=== PATIENT | female | born 1960 | race Caucasian/White ===

== ENCOUNTER 2018-01-02 22:21 | Inpatient (IN) ==
[2018-01-03 02:50] LABS: Baso % (Auto) 0.2 % (0.0-2.0); Eos % (Auto) 0.1 % (0.0-4.0); Hematocrit 32.2 % (35.0-46.0); Hemoglobin 10.5 gm/dL (11.6-15.3); Lymph # (Auto) 2.2 th/mm3 (1.0-4.8); Lymph % (Auto) 14.7 % (9.0-44.0); Mean Corpuscular HGB Conc 32.5 % (32.0-36.0); Mean Corpuscular Hemoglobin 28.3 pg (27.0-34.0); Mono # (Auto) 0.7 th/mm3 (0.0-0.9); Neut # (Auto) 11.8 th/mm3 (1.8-7.7); Platelet Count 243 th/mm3 (150-450); Red Cell Distribution Width 17.5 % (11.6-17.2); White Blood Count 14.8 th/mm3 (4.0-11.0)
[2018-01-03 03:22] LABS: Alanine Aminotransferase 32 U/L (10-53); Alkaline Phosphatase 132 U/L (45-117); Total Protein 6.4 g/dL (6.4-8.2)
[2018-01-03 03:29] LABS: Albumin 2.2 g/dL (3.4-5.0); Anion Gap 12 meq/L (5-15); Aspartate Aminotransferase 41 U/L (15-37); Blood Urea Nitrogen 20 mg/dL (7-18); Calcium 8.7 mg/dL (8.5-10.1); Carbon Dioxide 27.7 meq/L (21.0-32.0); Chloride 97 meq/L (98-107); Glomerular Filtration Rate 63 mL/min (>89); Glucose,Random 60 mg/dL (74-106); Sodium 137 meq/L (136-145)
[2018-01-03 03:31] LABS: Potassium 3.8 meq/L (3.5-5.1)
[2018-01-03] MEDS: KCL 20 mEq/D5W/NaCl 0.9% Inj 1,000 ML IV.CONT SCH ×2 (05:38→16:54)
--- NOTE | 2018-01-03 06:40 | ED ---
HPI General Chief Complaint: Psychiatric Symptoms Stated Complaint: Fire Dept/Eval/Ams Time Seen by Provider: 01/03/18 07:31 Source: EMS and RN notes reviewed Mode of arrival: EMS Limitations: altered mental status History of Present Illness HPI Narrative: 57-year-old female presents to the emergency department by EMS transport from [facility] for evaluation of altered mental status and acute psychosis. Patient has extensive past medical history of diverticulosis with diverticulitis of the large intestine status post perforation and abscess without bleeding status post surgical intervention with wound dehiscence and colostomy sepsis electrolyte disturbance major depressive disorder hypertension GERD recurrent urinary tract infection tobacco use. Per prison records patient is under the care of Dr. Ellington her surgeon Dr. Lentz for her lung disease and Dr. Cabrera for recent management of sepsis. Per prison notes patient was alert and oriented to person place time and events as of 01/01/18 with receiving wet-to-dry dressings at the open wound site approximated by 4 sutures no evidence of infection at the time. And then reportedly just prior to arrival to the emergency department patient was found to be removing her colostomy bag and taking the stool and putting it inside the open wound on her abdominal wall stating that she wanted to and she wanted her mother to live. Patient was transported to the emergency department for further evaluation. Patient here is unable to provide any helpful or useful information as she states that she has every intention of taking her AK 47 and killing everyone in the hospital. Related Data Home Medications Medication Instructions Recorded Confirmed alprazolam 0.25 mg PO Q8H PRN 01/03/18 01/03/18 bisacodyl 5 mg PO DAILY PRN 01/03/18 01/03/18 budesonide 0.5 mg INHALATION Q12H 01/03/18 01/03/18 dextromethorphan-guaifenesin 10 ml PO Q4H PRN 01/03/18 01/03/18 [Rocio-Tussin DM] furosemide 40 mg PO DAILY 01/03/18 01/03/18 ipratropium-albuterol 3 ml INHALATION Q6-8H PRN 01/03/18 01/03/18 pantoprazole 40 mg PO DAILY 01/03/18 01/03/18 potassium chloride [Klor-Con M20] 20 meq PO DAILY 01/03/18 01/03/18 prednisone 20 mg PO DAILY 01/03/18 01/03/18 spironolactone 25 mg PO BID 01/03/18 01/03/18 tramadol 50 mg PO Q4-6H PRN 01/03/18 01/03/18 trazodone 200 mg PO HS 01/03/18 01/03/18 Allergies Allergy/AdvReac Type Severity Reaction Status Date / Time No Known Allergies Allergy Verified 01/03/18 07:51 Review of Systems ROS Unobtainable ROS Unobtainable: unobtainable due to mental condition [facility] Medical History Medical History Anxiety (Acute) Chronic pain (Acute) Colostomy present on admission (Acute) Constipation (Acute) Diverticulitis (Acute) Edema (Acute) GERD (gastroesophageal reflux disease) (Acute) Hypertension (Acute) Hypokalemia (Acute) Major depressive disorder (Acute) Sepsis (Acute) Shortness of breath (Acute) UTI (urinary tract infection) (Acute) Social History Social History Substance History: No History of Abuse Smoking Status: Former smoker Tobacco Type: Cigarettes How Often Do You Have a Drink Containing Alcohol: Never Recent Travel in [place] within the Last 8 Weeks: No Recent Out of Country Travel within the Last 8 Weeks: No Immunization History Tetanus Immunization: <5 Years Hx Influenza Vaccine This Season: Yes Exam Narrative Exam Narrative: GENERAL: Well-nourished, well-developed patient. In four-point restraints randomly stating that she wants to be released so that she can kill everyone in the hospital and that she wants her mother to live because she wants to . Patient is awake follows commands intermittently oriented to person. SKIN: Focused skin assessment warm/dry. HEAD: Normocephalic. EYES: No scleral icterus. No injection or drainage. NECK: Supple, trachea midline. No JVD or lymphadenopathy. CARDIOVASCULAR: Regular rate and rhythm without murmurs, gallops, or rubs. RESPIRATORY: Breath sounds equal bilaterally. No accessory muscle use. GASTROINTESTINAL: Abdomen soft, non-tender, nondistended. Abdominal wall large dehisced wound with [address] and no visible stool or foreign body or packing in place. MUSCULOSKELETAL: No cyanosis, or edema. BACK: Nontender without obvious deformity. No CVA tenderness. Course Initial Documented Vital Signs Temperature 98.2 F 01/03/18 00:19 Pulse Rate 111 H 01/03/18 00:19 Respiratory Rate 16 01/03/18 00:19 Blood Pressure 187/92 H 01/03/18 00:19 Pulse Oximetry 99 01/03/18 00:19 Last Documented Vital Signs Temperature 98.2 F 01/03/18 00:19 Pulse Rate 77 01/03/18 13:30 Respiratory Rate 16 01/03/18 13:30 Blood Pressure 112/70 01/03/18 13:30 Pulse Oximetry 98 01/03/18 13:23 Sign Out Sign Out Data: Patient Sign Out occurred on 01/03/18 at 08:25. Patient's care was discussed, and care was transferred from Mita Kirkpatrick MD to Beck Galvan DO. Sign Out Comment: 57-year-old female sent to the emergency department from prison for acute agitation bizarre behavior and acute psychosis with history of depression threatening to harm herself and others and being found putting stool from her colostomy site into her open abdominal wall wound. Patient placed in restraints and lab work and imaging studies pending. Patient reportedly voluntary psych screen/evaluation. Patient is not a Perez act. Care signed over to oncoming physician for follow-up of still pending imaging studies. Last updated by Mita Kirkpatrick MD at 01/03/18 07:47 Medical Decision Making MDM Narrative Medical decision making narrative: 57 female presents with acute psychosis from prison; IV access obtained specimens collected and sent for resulting including culture of wound site dressing applied to abdominal wall wound. Colostomy in place. Patient in four-point restraints uncooperative at this time At 7:30 AM patient cooperative requesting restraints to be removed patient will be reposition but restraints will be kept in place and patient is reassessed white count is identified to be 14,880% neutrophils hemoglobin of 10.5 mild anemia chemistries remarkable for serum glucose of 60 which was addressed with D50 and D5 normal saline with 20 of K maintenance of 100 cc an hour lactic acid is not elevated at 1.9 urinalysis remains pending acetaminophen level is not elevated salicylate level is not elevated serum alcohol level is less than 3 patient still has not had imaging CT brain noncontrast or CT abdomen pelvis performed. Patient's care will be signed over to oncoming physician for follow-up of CT imaging studies and urinalysis. Patient will need admission to medicine service with psychiatric consultation. Patient also with UTI and a white count of 14.8. Due to the fact that she was applying fecal matter on her open wound we started her on cefepime. Will admit for further evaluation and treatment. Medical Screen Exam Complete: Yes Emergency Medical Condition: Yes Medical Records Medical records reviewed: Yes I reviewed the patient's medical records. Lab Data Result diagrams: 01/03/18 02:20 01/03/18 02:20 Lab Results 01/03/18 01/03/18 01/03/18 Range/Units 02:20 02:20 02:20 WBC 14.8 H (4.0-11.0) th/mm3 RBC 3.70 L (4.00-5.30) mil/mm3 Hgb 10.5 L (11.6-15.3) gm/dL Hct 32.2 L (35.0-46.0) % MCV 87.0 (80.0-100.0) fL MCH 28.3 (27.0-34.0) pg MCHC 32.5 (32.0-36.0) % RDW 17.5 H (11.6-17.2) % Plt Count 243 (150-450) th/mm3 MPV 8.0 (7.0-11.0) fL Prelim Diff (Auto) Slide review pending Neut % (Auto) 80.0 H (16.0-70.0) % Lymph % (Auto) 14.7 (9.0-44.0) % Prentiss % (Auto) 5.0 (0.0-8.0) % Eos % (Auto) 0.1 (0.0-4.0) % Baso % (Auto) 0.2 (0.0-2.0) % Neut # (Auto) 11.8 H (1.8-7.7) th/mm3 Lymph # (Auto) 2.2 (1.0-4.8) th/mm3 Prentiss # (Auto) 0.7 (0.0-0.9) th/mm3 Eos # (Auto) 0.0 (0.0-0.4) th/mm3 Baso # (Auto) 0.0 (0.0-0.2) th/mm3 WBC Differential . Diff Scan Auto diff confirmed Differential Comment . Sodium 137 (136-145) meq/L Potassium 3.8 (3.5-5.1) meq/L Chloride 97 L (98-107) meq/L Carbon Dioxide 27.7 (21.0-32.0) meq/L Anion Gap 12 (5-15) meq/L BUN 20 H (7-18) mg/dL Creatinine 0.92 (0.50-1.00) mg/dL Estimated GFR 63 L (>89) mL/min POC Glucose (68-110) mg/dl Random Glucose 60 L (74-106) mg/dL Lactic Acid (0.4-2.0) mmol/L Calcium 8.7 (8.5-10.1) mg/dL Total Bilirubin 1.3 H (0.2-1.0) mg/dL AST 41 H (15-37) U/L ALT 32 (10-53) U/L Alkaline Phosphatase 132 H (45-117) U/L Total Protein 6.4 (6.4-8.2) g/dL Albumin 2.2 L (3.4-5.0) g/dL TSH 2.560 (0.358-3.740) uIU/mL Urine Color (Yellw/Straw) Urine Clarity (Clear) Urine pH (5.0-8.5) Ur Specific [place] (1.002-1.035) Urine Protein (Neg-Trace) mg/dL Urine Glucose (UA) (Negative) mg/dL Urine Ketones (Negative) mg/dL Urine Occult Blood (Negative) Urine Nitrate (Negative) Urine Bilirubin (Negative) Urine Urobilinogen (Less than 2) mg/dL Ur Leukocyte Esterase (Negative) Urine RBC (0-3) /hpf Urine WBC (0-5) /hpf Ur Squamous Epith Cells (0-5) /hpf Urine Bacteria (None) /hpf Hyaline Casts (0-3) /lpf Urine Mucus (Occasional) /lpf Micro UA Comment Ur Microscopic Review Urine Culture Comments Salicylates Less than 1.7 L (2.8-20.0) mg/dL Urine Opiates Screen (Neg) Acetaminophen Less than 2.0 L (10.0-30.0) mcg/mL Ur Barbiturates Screen (Neg) Ur Amphetamines Screen (Neg) U Benzodiazepines Scrn (Neg) Urine Cocaine Screen (Neg) U Cannabinoids Screen (Neg) Serum Alcohol Less than 3 (0-5) mg/dL 01/03/18 01/03/18 01/03/18 Range/Units 02:20 06:50 06:50 WBC (4.0-11.0) th/mm3 RBC (4.00-5.30) mil/mm3 Hgb (11.6-15.3) gm/dL Hct (35.0-46.0) % MCV (80.0-100.0) fL MCH (27.0-34.0) pg MCHC (32.0-36.0) % RDW (11.6-17.2) % Plt Count (150-450) th/mm3 MPV (7.0-11.0) fL Prelim Diff (Auto) Neut % (Auto) (16.0-70.0) % Lymph % (Auto) (9.0-44.0) % Prentiss % (Auto) (0.0-8.0) % Eos % (Auto) (0.0-4.0) % Baso % (Auto) (0.0-2.0) % Neut # (Auto) (1.8-7.7) th/mm3 Lymph # (Auto) (1.0-4.8) th/mm3 Prentiss # (Auto) (0.0-0.9) th/mm3 Eos # (Auto) (0.0-0.4) th/mm3 Baso # (Auto) (0.0-0.2) th/mm3 WBC Differential Diff Scan Differential Comment Sodium (136-145) meq/L Potassium (3.5-5.1) meq/L Chloride (98-107) meq/L Carbon Dioxide (21.0-32.0) meq/L Anion Gap (5-15) meq/L BUN (7-18) mg/dL Creatinine (0.50-1.00) mg/dL Estimated GFR (>89) mL/min POC Glucose (68-110) mg/dl Random Glucose (74-106) mg/dL Lactic Acid 1.9 (0.4-2.0) mmol/L Calcium (8.5-10.1) mg/dL Total Bilirubin (0.2-1.0) mg/dL AST (15-37) U/L ALT (10-53) U/L Alkaline Phosphatase (45-117) U/L Total Protein (6.4-8.2) g/dL Albumin (3.4-5.0) g/dL TSH (0.358-3.740) uIU/mL Urine Color Lad[place] (Yellw/Straw) Urine Clarity Hazy H (Clear) Urine pH 5.0 (5.0-8.5) Ur Specific [place] 1.021 (1.002-1.035) Urine Protein 100 H (Neg-Trace) mg/dL Urine Glucose (UA) Negative (Negative) mg/dL Urine Ketones 20 (Negative) mg/dL Urine Occult Blood Small H (Negative) Urine Nitrate Negative (Negative) Urine Bilirubin Negative (Negative) Urine Urobilinogen 4 or greater (Less than 2) mg/dL Ur Leukocyte Esterase Negative (Negative) Urine RBC 2 (0-3) /hpf Urine WBC 6 H (0-5) /hpf Ur Squamous Epith Cells 1 (0-5) /hpf Urine Bacteria Many H (None) /hpf Hyaline Casts 3 (0-3) /lpf Urine Mucus Few H (Occasional) /lpf Micro UA Comment Cath-culture ind Ur Microscopic Review Not Reportable Urine Culture Comments Cath-cult indicated Salicylates (2.8-20.0) mg/dL Urine Opiates Screen Neg (Neg) Acetaminophen (10.0-30.0) mcg/mL Ur Barbiturates Screen Neg (Neg) Ur Amphetamines Screen Neg (Neg) U Benzodiazepines Scrn Pos H (Neg) Urine Cocaine Screen Neg (Neg) U Cannabinoids Screen Neg (Neg) Serum Alcohol (0-5) mg/dL 01/03/18 01/03/18 Range/Units 07:38 11:18 WBC (4.0-11.0) th/mm3 RBC (4.00-5.30) mil/mm3 Hgb (11.6-15.3) gm/dL Hct (35.0-46.0) % MCV (80.0-100.0) fL MCH (27.0-34.0) pg MCHC (32.0-36.0) % RDW (11.6-17.2) % Plt Count (150-450) th/mm3 MPV (7.0-11.0) fL Prelim Diff (Auto) Neut % (Auto) (16.0-70.0) % Lymph % (Auto) (9.0-44.0) % Prentiss % (Auto) (0.0-8.0) % Eos % (Auto) (0.0-4.0) % Baso % (Auto) (0.0-2.0) % Neut # (Auto) (1.8-7.7) th/mm3 Lymph # (Auto) (1.0-4.8) th/mm3 Prentiss # (Auto) (0.0-0.9) th/mm3 Eos # (Auto) (0.0-0.4) th/mm3 Baso # (Auto) (0.0-0.2) th/mm3 WBC Differential Diff Scan Differential Comment Sodium (136-145) meq/L Potassium (3.5-5.1) meq/L Chloride (98-107) meq/L Carbon Dioxide (21.0-32.0) meq/L Anion Gap (5-15) meq/L BUN (7-18) mg/dL Creatinine (0.50-1.00) mg/dL Estimated GFR (>89) mL/min POC Glucose 124 H 102 (68-110) mg/dl Random Glucose (74-106) mg/dL Lactic Acid (0.4-2.0) mmol/L Calcium (8.5-10.1) mg/dL Total Bilirubin (0.2-1.0) mg/dL AST (15-37) U/L ALT (10-53) U/L Alkaline Phosphatase (45-117) U/L Total Protein (6.4-8.2) g/dL Albumin (3.4-5.0) g/dL TSH (0.358-3.740) uIU/mL Urine Color (Yellw/Straw) Urine Clarity (Clear) Urine pH (5.0-8.5) Ur Specific [place] (1.002-1.035) Urine Protein (Neg-Trace) mg/dL Urine Glucose (UA) (Negative) mg/dL Urine Ketones (Negative) mg/dL Urine Occult Blood (Negative) Urine Nitrate (Negative) Urine Bilirubin (Negative) Urine Urobilinogen (Less than 2) mg/dL Ur Leukocyte Esterase (Negative) Urine RBC (0-3) /hpf Urine WBC (0-5) /hpf Ur Squamous Epith Cells (0-5) /hpf Urine Bacteria (None) /hpf Hyaline Casts (0-3) /lpf Urine Mucus (Occasional) /lpf Micro UA Comment Ur Microscopic Review Urine Culture Comments Salicylates (2.8-20.0) mg/dL Urine Opiates Screen (Neg) Acetaminophen (10.0-30.0) mcg/mL Ur Barbiturates Screen (Neg) Ur Amphetamines Screen (Neg) U Benzodiazepines Scrn (Neg) Urine Cocaine Screen (Neg) U Cannabinoids Screen (Neg) Serum Alcohol (0-5) mg/dL Imaging Data Radiologist's impression: Chest X-Ray 01/03/18 00:00 CONCLUSION: Left basilar atelectasis. Head CT 01/03/18 05:23 CONCLUSION: 1. Negative CT Head non contrast. . Abdomen/Pelvis CT 01/03/18 05:24 Bilateral breast implants are noted. There is left lower lobe atelectasis with air bronchogram formation. Trace pericardial fluid. Cholelithiasis is noted. There is diffuse biliary ductal dilatation involving intrahepatic, and extrahepatic biliary tree, common pelvic measuring up to 2.1 cm. It tapers as it approaches the ampulla. Kidneys, adrenals, spleen, pancreas unremarkable. Urinary bladder contained a small locule of air. The uterus is unremarkable. Distal colon is decompressed, and there is a left lower quadrant. There are several hypodense masses seen within the upper abdomen including just lateral to the descending portion of the duodenum, anterior to the pancreas. For example on the right upper quadrant on image 29 a 9 x 5 cm collection is present which is contiguous with a left upper quadrant mass measuring 7.1 x 5.4 cm in size. Similar appearing hypodense mass is seen just superior to the appendix in the right mid abdomen on image 42. There is also a crescentic rim- enhancing collection in the left paracolic region with adjacent surgical clips, and this collection contains air and fluid on axial image 36 this measures 6 x 1.8 cm in AP transverse dimension. There are no signs of bowel obstruction. Diffuse atherosclerotic calcification of the aorta and iliac vessels are noted. Review of bone windows demonstrate degenerative changes of the spine. There are post surgical changes to the anterior abdominal wall with subcutaneous air along the left lateral subcutaneous tissues just above the hip, and a small focus of subcutaneous air and fluid measuring 1.9 x 1.7 cm in AP transverse dimension on image 36 at the midline. CONCLUSION: 1. Extensive postsurgical changes are seen to the anterior abdominal wall, and left sided colostomy identified. 2. Cholelithiasis, and dilatation of the biliary tree is noted. 3. Low density mass-like foci are seen throughout the mid to upper abdomen as described above which has an appearance of masses versus focal fluid collections , and the possibility of carcinomatosis should be entertained. 4. There is a crescentic rim-enhancing fluid collection containing air in the left midabdomen paracolic region which would be most characteristic of an abscess. ECG Data EKG Prior to Arrival: No Prior ECG tracings: not available for review Interpretation: EKG sinus rhythm rate [address] elevation nonspecific ST-T changes anterolaterally Discharge Plan Discharge Disposition Patient Disposition: 30 Still Patient Discharge Condition Condition: Stable Discharge Details Diagnosis: Altered mental status, Bipolar disorder, Psychosis, Postoperative abdominal pain, Acute UTI Physicians Team ED Provider: Beck Galvan Primary Care Provider: Primary Care Milo,Lin Attending Provider: Arjun Friend Other Providers: Rom Ingram Discharge Interventions Interventions: Vital Signs Last Done: 01/03/18 11:43 Status ED Status: Admitted Patient
[2018-01-03] MEDS ORDERED: Morphine Inj 4 MG/ML Vial IV.PUSH ONE (08:05)
[2018-01-03 08:08] LABS: Amphetamine Screen,Urine Neg (Neg); Barbiturate Screen,Urine Neg (Neg); Cannabinoid Screen,Urine Neg (Neg); Cocaine Screen,Urine Neg (Neg)
[2018-01-03 08:10] LABS: Opiate Screen,Urine Neg (Neg)
[2018-01-03 08:28] LABS: Bacteria,Urine Many /hpf; Bilirubin,Urine Negative (Negative); Clarity,Urine Hazy (Clear); Color,Urine Amber (Yellw/Straw); Glucose,Urine (UA) Negative (Negative); Hyaline Casts,Urine 3 /lpf (0-3); Leukocyte Esterase,Urine Negative (Negative); Mucus,Urine Few /lpf (Occasional); Nitrite,Urine Negative (Negative); Specific Gravity,Urine 1.021 (1.002-1.035); Squamous Epithelial Cell,Urine 1 /hpf (0-5); Urobilinogen,Urine 4 or Greater mg/dL (Less than 2)
--- NOTE | 2018-01-03 09:39 | CT ---
EXAM DATE: 01/03/2018 9:34 AM EDT AGE/SEX: 57 years / Female INDICATIONS: Altered mental status. CLINICAL DATA: This is the patient's initial encounter. Patient reports that signs and symptoms have been present for 1 day and indicates a pain score of 0/10. MEDICAL/SURGICAL HISTORY: Hypertension. Diverticulitis. Colostomy. RADIATION DOSE: 56.35 CTDI (mGy) COMPARISON: No prior exams available for comparison. TECHNIQUE: CT of the head without contrast. Using automated exposure control and adjustment of the mA and/or kV according to patient size, radiation dose was kept as low as reasonably achievable to ob tain optimal diagnostic quality images. DICOM format image data is available electronically for revi ew and comparison. FINDINGS: Cerebrum: The ventricles are normal for age. No evidence of midline shift, mass lesion, hemorrhage or acute infarction. No extraaxial fluid collections are seen. Posterior Fossa: The cerebellum and brainstem are intact. The 4th ventricle is midline. The cerebe llopontine angle is unremarkable. Extracranial: The visualized portion of the orbits is intact. Skull: The calvaria is intact. No evidence of skull fracture. CONCLUSION: 1. Negative CT Head non contrast. . Electronically signed by: Get Urbina MD 01/03/2018 9:37 AM EDT
--- NOTE | 2018-01-03 09:49 | CT ---
EXAM DATE: 01/03/2018 9:38 AM EDT AGE/SEX: 57 years / Female INDICATIONS: Diffuse abdominal pain. CLINICAL DATA: This is the patient's initial encounter. Patient reports that signs and symptoms have been present for 1 day and indicates a pain score of 5/10. MEDICAL/SURGICAL HISTORY: Hypertension. Diverticulitis. sajan Colostomy. ORAL CONTRAST: No oral contrast ingested. RADIATION DOSE: 10.09 CTDI (mGy) COMPARISON: No prior exams available for comparison. TECHNIQUE: Multiple contiguous axial images were obtained through the abdomen and pelvis following b olus infusion of 100 ml Omnipaque 350 (iohexol) nonionic water-soluble contrast as a single exam do se. No oral contrast ingested. Using automated exposure control and adjustment of the mA and/or kV a ccording to patient size, radiation dose was kept as low as reasonably achievable to obtain optimal d iagnostic quality images. DICOM format image data is available electronically for review and compari son. FINDINGS: Bilateral breast implants are noted. There is left lower lobe atelectasis with air bronchogram format ion. Trace pericardial fluid. Cholelithiasis is noted. There is diffuse biliary ductal dilatation inv olving intrahepatic, and extrahepatic biliary tree, common pelvic measuring up to 2.1 cm. It tapers a s it approaches the ampulla. Kidneys, adrenals, spleen, pancreas unremarkable. Urinary bladder contai lelo a small locule of air. The uterus is unremarkable. Distal colon is decompressed, and there is a l eft lower quadrant. There are several hypodense masses seen within the upper abdomen including just l ateral to the descending portion of the duodenum, anterior to the pancreas. For example on the right upper quadrant on image 29 a 9 x 5 cm collection is present which is contiguous with a left upper priscila drant mass measuring 7.1 x 5.4 cm in size. Similar appearing hypodense mass is seen just superior to the appendix in the right mid abdomen on image 42. There is also a crescentic rim-enhancing collectio n in the left paracolic region with adjacent surgical clips, and this collection contains air and flu id on axial image 36 this measures 6 x 1.8 cm in AP transverse dimension. There are no signs of bowel obstruction. Diffuse atherosclerotic calcification of the aorta and iliac vessels are noted. Review of bone windows demonstrate degenerative changes of the spine. There are post surgical changes to the anterior abdominal wall with subcutaneous air along the left lateral subcutaneous tissues just above the hip, and a small focus of subcutaneous air and fluid measuring 1.9 x 1.7 cm in AP transverse dim ension on image 36 at the midline. CONCLUSION: 1. Extensive postsurgical changes are seen to the anterior abdominal wall, and left sided colostomy identified. 2. Cholelithiasis, and dilatation of the biliary tree is noted. 3. Low density mass-like foci are seen throughout the mid to upper abdomen as described above which has an appearance of masses versus focal fluid collections, and the possibility of carcinomatosis aida uld be entertained. 4. There is a crescentic rim-enhancing fluid collection containing air in the left midabdomen paraco lic region which would be most characteristic of an abscess. Electronically signed by: Get Urbina MD 01/03/2018 9:48 AM EDT
--- NOTE | 2018-01-03 12:35 | P.HPIM ---
History of Present Illness Service: [facility] Primary Care Physician: No Primary Care Physician Chief Complaint: altered mental stats, psychosis, UTI History of Present Illness: Mrs. Camp is a 57 yo F with PMH of recent laparotomy and colostomy placement by Dr. Herndon (due to complications of diverticulitis at within the past month) , recent abdominal infection, anxiety/depression, GERD, HTN who presented to [facility] rehabilitation facility due to altered mental status and psychosis. Per ED documentation, patient was doing well 01/01 but was found today putting stool from ostomy inside wound stating she wanted to . At ED, patient reported desire to use rifle to kill people in hospital. [facility] records reviewed- admitted to [facility] 12/31 from . Had diverticulitis; due to complications had colostomy and laparotomy. Patient had plans for abdominal dressing changes and follow-up with Dr. Herndon in 4 weeks. Patient also had been seeing Dr. Cabrera (ID) and Dr. Hall (Pulmonology) and had f/u appointments planned. Interval: In ED, vital signs stable. Patient found to have WBC 14K, lactic acid 1.9. CT A/P suggestive of multiple masses/fluid and suggestion of abscess. UA suggestive of UTI. Patient also found to have glucose 60 and abnormal LFT's. Abdominal incision irrigated by nursing staff and re-dressed. Decision made to admit patient to medical service and consult psychiatry. At time of interview, patient oriented to year and that she is in the hospital. She does not remember putting stool from ostomy into abdominal wound. She reports history of depression but denies prior suicidal ideation. patient reports doing well at [facility] for ~2 days prior to worsening. She is not sure why she is here. Patient reports diffuse pain all over. She denies chest pain, shortness of breath, extremity numbness/tinging, headaches, vision changes. She has not been able to walk since diverticulitis hospitalization. She reports some lung disease and that she used to smoke 1PPD until last hospitalization. Some records obtained from hospitalization in December: CT 12/07- large diverticular abscess 11.2 x10.6x10.1. Too thick to aspirate. Drain in abscess in position. Common bile duct dilation; unchanged from prior. Could be evaluated by MRCP/ERCP 12/13- Laparoscopic L colectomy performed Was on Rocephin and Flagyl per Dr. Cabrera while hospitalized; also treated for candidemia while hospitalized. Gamboa's procedure performed on enterocutaneous fistula 12/31- stable; drains from abdominal incision removed; patient discharged to rehab - Diagnosis (1) Abdominal abscess (2) Suicidal ideation (3) Altered mental status (4) Psychosis (5) Acute UTI Review of Systems All other systems reviewed negative except as stated in HPI Constitutional: Reports malaise, Denies increased appetite Eyes: Denies change in vision, Denies loss of vision Ears, Nose, Mouth, and Throat: Denies headache(s), Denies nasal discharge Cardiovascular: Denies chest pain, Denies shortness of breath with activity Respiratory: Denies change in phlegm color, Denies cough Gastrointestinal: Reports abdominal pain, Denies vomiting Genitourinary: Reports other (catheter while at rehab), Denies painful urination , Denies urinary urgency Musculoskeletal: Reports abnormal walking, Reports back pain Skin/Breast: Reports other (abdominal incisions), Denies rash Neurologic: Reports confusion, Reports other (altered mental status) Psychiatric: Reports anxiety, Reports confusion, Reports depression Hematologic/Lymphatic: Denies easy bleeding, Denies easy bruising Allergic/Immunologic: Denies GI upset with certain foods, Denies wheezing PMFSH - History History Provided By: Patient - Medical History Medical History: Medical History (Last Updated 01/03/18 @ 15:36 by Arjun Friend MD) Abdominal abscess Anxiety Chronic pain Colostomy in place Colostomy present on admission Constipation Diverticulitis Edema GERD (gastroesophageal reflux disease) Hypertension Hypokalemia Major depressive disorder Sepsis Shortness of breath UTI (urinary tract infection) - Surgical History Surgical History: Surgical History (Last Updated 01/03/18 @ 15:36 by Arjun Friend MD) History of laparotomy - Tobacco History Tobacco Use In Past 30 Days: No Smoking Status: Former smoker Tobacco Type: Cigarettes - Alcohol History How Often Do You Have a Drink Containing Alcohol: Never - Substance Use History Substance History: No History of Abuse - Travel History Recent Travel in the [facility] Within the Last 8 Weeks: No Recent Travel Out of the Country Within the Last 8 Weeks: No - Immunization History Tetanus Immunization: <5 Years Hx Influenza Vaccine This Season: Yes Medications and Allergies Active Medications: Active Medications Potassium Chloride/Dextrose/Sod Cl (D5w/Ns + Kcl 20 Meq Inj) 1,000 mls @ 100 mls/hr IV.CONT .Q10H CAITLIN Last Admin: 01/03/18 05:38 Dose: 100 mls/hr Allergies Allergy/AdvReac Type Severity Reaction Status Date / Time No Known Allergies Allergy Verified 01/03/18 07:51 Home Medications Medication Instructions Recorded Confirmed Type alprazolam 0.25 mg PO Q8H PRN 01/03/18 01/03/18 History bisacodyl 5 mg PO DAILY PRN 01/03/18 01/03/18 History budesonide 0.5 mg INHALATION Q12H 01/03/18 01/03/18 History dextromethorphan-guaifenesin 10 ml PO Q4H PRN 01/03/18 01/03/18 History [Alex DM] furosemide 40 mg PO DAILY 01/03/18 01/03/18 History ipratropium-albuterol 3 ml INHALATION Q6-8H PRN 01/03/18 01/03/18 History pantoprazole 40 mg PO DAILY 01/03/18 01/03/18 History potassium chloride [Klor-Con M20] 20 meq PO DAILY 01/03/18 01/03/18 History prednisone 20 mg PO DAILY 01/03/18 01/03/18 History spironolactone 25 mg PO BID 01/03/18 01/03/18 History tramadol 50 mg PO Q4-6H PRN 01/03/18 01/03/18 History trazodone 200 mg PO HS 01/03/18 01/03/18 History Exam Vital signs: Vital Signs 01/03/18 00:19 01/03/18 02:29 01/03/18 07:00 Temperature 98.2 F Pulse Rate 111 H 113 H 94 H Respiratory Rate 16 21 20 Blood Pressure 187/92 H 128/72 109/70 Pulse Oximetry 99 97 97 01/03/18 08:00 01/03/18 08:28 01/03/18 10:47 Temperature Pulse Rate 90 85 Respiratory Rate 18 18 16 Blood Pressure 109/67 106/56 L Pulse Oximetry 98 98 01/03/18 11:43 Temperature Pulse Rate 83 Respiratory Rate 18 Blood Pressure 109/64 Pulse Oximetry 98 Intake & Output 09/02/18 09/03/18 09/03/18 18:59 06:59 18:59 Weight 92.986 kg Narrative: General: Resting in bed; no acute distress Skin: Colostomy bag in place. Midline laparotomy incision present; healing by secondary intention. Eyes: EOM I. normal pupillary light reflex Neck: No appreciated JVD or lymphadenopathy Neuro/psych: Altert to year, location. No focal CN defects. Grossly normal peripheral motor/sensory function. Generalized pain to light palpation of extremities; patient with some frustration regarding pain. CV: regular rate and rhythm; normal perfusion Pulm: CTAB; normal rate Abd: Skin findings as above. No pain to palpation MSK: No calf asymmetry. some mild bilateral LE edema Results - Labs CBC & Chem 7: 01/03/18 02:20 01/03/18 02:20 Labs: Short CBC 01/03/18 Range/Units 02:20 WBC 14.8 H (4.0-11.0) th/mm3 Hgb 10.5 L (11.6-15.3) gm/dL Hct 32.2 L (35.0-46.0) % Plt Count 243 (150-450) th/mm3 BMP 01/03/18 02:20 Sodium 137 Potassium 3.8 Chloride 97 L Carbon Dioxide 27.7 BUN 20 H Creatinine 0.92 Calcium 8.7 Liver Function 01/03/18 Range/Units 02:20 Total Bilirubin 1.3 H (0.2-1.0) mg/dL AST 41 H (15-37) U/L ALT 32 (10-53) U/L Alkaline Phosphatase 132 H (45-117) U/L Albumin 2.2 L (3.4-5.0) g/dL Urine 01/03/18 Range/Units 06:50 Urine Color Ladan (Yellw/Straw) Urine Clarity Hazy H (Clear) Urine pH 5.0 (5.0-8.5) Ur Specific [place] 1.021 (1.002-1.035) Urine Protein 100 H (Neg-Trace) mg/dL Urine Glucose (UA) Negative (Negative) mg/dL - Imaging Impressions Head CT 01/03/18 05:23 CONCLUSION: 1. Negative CT Head non contrast. . Abdomen/Pelvis CT 01/03/18 05:24 Bilateral breast implants are noted. There is left lower lobe atelectasis with air bronchogram formation. Trace pericardial fluid. Cholelithiasis is noted. There is diffuse biliary ductal dilatation involving intrahepatic, and extrahepatic biliary tree, common pelvic measuring up to 2.1 cm. It tapers as it approaches the ampulla. Kidneys, adrenals, spleen, pancreas unremarkable. Urinary bladder contained a small locule of air. The uterus is unremarkable. Distal colon is decompressed, and there is a left lower quadrant. There are several hypodense masses seen within the upper abdomen including just lateral to the descending portion of the duodenum, anterior to the pancreas. For example on the right upper quadrant on image 29 a 9 x 5 cm collection is present which is contiguous with a left upper quadrant mass measuring 7.1 x 5.4 cm in size. Similar appearing hypodense mass is seen just superior to the appendix in the right mid abdomen on image 42. There is also a crescentic rim- enhancing collection in the left paracolic region with adjacent surgical clips, and this collection contains air and fluid on axial image 36 this measures 6 x 1.8 cm in AP transverse dimension. There are no signs of bowel obstruction. Diffuse atherosclerotic calcification of the aorta and iliac vessels are noted. Review of bone windows demonstrate degenerative changes of the spine. There are post surgical changes to the anterior abdominal wall with subcutaneous air along the left lateral subcutaneous tissues just above the hip, and a small focus of subcutaneous air and fluid measuring 1.9 x 1.7 cm in AP transverse dimension on image 36 at the midline. CONCLUSION: 1. Extensive postsurgical changes are seen to the anterior abdominal wall, and left sided colostomy identified. 2. Cholelithiasis, and dilatation of the biliary tree is noted. 3. Low density mass-like foci are seen throughout the mid to upper abdomen as described above which has an appearance of masses versus focal fluid collections , and the possibility of carcinomatosis should be entertained. 4. There is a crescentic rim-enhancing fluid collection containing air in the left midabdomen paracolic region which would be most characteristic of an abscess. Caprini VTE Risk Assessment Caprini VTE Risk Assessment: Moderate/High Risk (score >= 2) Caprini Risk Assessment Model: Point Value = 1 Point Value = 2 Point Value = 3 Point Value = 5 Age 41-60 Minor surgery BMI > 25 kg/m2 Swollen legs Varicose veins or History of unexplained or recurrent spontaneous Oral contraceptives or hormone replacement Sepsis (< 1 month) Serious lung disease, including pneumonia (< 1 month) Abnormal pulmonary function Acute myocardial infarction Congestive heart failure (< 1 month) History of inflammatory bowel disease Medical patient at bed rest Age 61-74 Arthroscopic surgery Major open surgery (> 45 min) Laparoscopic surgery (> 45 min) Malignancy Confined to bed (> 72 hours) Immobilizing plaster cast Central venous access Age >= 75 History of VTE Family history of VTE Factor V Leiden Prothrombin [id number] Lupus anticoagulant Anticardiolipin antibodies Elevated serum homocysteine Heparin-induced thrombocytopenia Other congenital or acquired thrombophilia Stroke (< 1 month) Elective arthroplasty Hip, pelvis, or leg fracture Acute spinal cord injury (< 1 month) Prophylaxis Regimen: Total Risk Factor Score Risk Level Prophylaxis Regimen 0-1 Low Early ambulation 2 Moderate Order ONE of the following: *Sequential Compression Device (SCD) *Heparin 5000 units SQ BID 3-4 Higher Order ONE of the following medications: *Heparin 5000 units SQ TID *Enoxaparin/Lovenox 40 mg SQ daily (WT < 150 kg, CrCl > 30 mL/min) *Enoxaparin/Lovenox 30 mg SQ daily (WT < 150 kg, CrCl > 10-29 mL/min) *Enoxaparin/Lovenox 30 mg SQ BID (WT < 150 kg, CrCl > 30 mL/min) AND/OR *Sequential Compression Device (SCD) 5 or more Highest Order ONE of the following medications: *Heparin 5000 units SQ TID (Preferred with Epidurals) *Enoxaparin/Lovenox 40 mg SQ daily (WT < 150 kg, CrCl > 30 mL/min) *Enoxaparin/Lovenox 30 mg SQ daily (WT < 150 kg, CrCl > 10-29 mL/min) *Enoxaparin/Lovenox 30 mg SQ BID (WT < 150 kg, CrCl > 30 mL/min) AND *Sequential Compression Device (SCD) Assessment and Plan - Assessment (1) Abdominal abscess Status: Acute (2) Suicidal ideation Code(s): R45.851 - Suicidal ideations Status: Acute (3) Altered mental status Code(s): R41.82 - Altered mental status, unspecified Status: Acute (4) Psychosis Code(s): F29 - Unspecified psychosis not due to a substance or known physiological condition Status: Acute (5) Acute UTI Code(s): N39.0 - Urinary tract infection, site not specified Status: Acute - Plan Mrs. Camp is a 57 yo F with PMH of recent laparotomy and colostomy placement by Dr. Herndon (due to complications of diverticulitis at within the past month) , recent abdominal infection, anxiety/depression, GERD, HTN who presented to [facility] due to altered mental status and psychosis. Altered mental status/psychosis Impression: Likely related to delirium from possible infectious source and/or worsening psychiatric disease. Suicidal/homicidal ideation today Labs: Normal electrolytes with exception of mild LFT elevations -Psych consulted -Will evaluate/treat for UTI/intrabdominal infectious process as below as delirium very likely -Will continue home antidepressant, benzodiazepine Intrabdominal pathology Impression: Per partial patient/[facility]/ records, patient seemed to have diverticulitis resulting in abscess formation. This was treated with IR drainage without success. Due to enlargement/lack of ability to aspirate, abdominal surgical procedure performed. Unclear if further complications; 12/[address] Herndon performed. Patient given prolonged IV ABX with Rocephin and Flagyl. No organisms in records I received but ID consulted. Biliary dilatation also mentioned records. Patient discharged home 12/31 in stable condition to rehab and planned f/u with Dr. Herndon Subsequent feces in abdomen while altered mental status/psychosis today CT A/P on admission suggestive of multiple masses/fluid and suggestion of abscess -Will empirically give antibiotics to cover for intra-abdominal process -Continue Cefepime from ED -Continue Flagyl -Wound care consulted -IR consulted for evaluation of persistent abscess -Will consult ID for re-evaluation of potential complicated intrabdominal infection -Will consult GI for biliary dilatation with mild LFT abnormalities -Since stable clinically, will defer surgical consultation but will have low threshold to consult SIRS criteria with intraabdominal pathology and suggestion of UTI Impression: Recent diverticulitis w/ abscess s/p prolonged Ceftriaxone/Flagyl. Subsequent Garibay catheter at rehab Tachycardic on admission with WBC 14k. UA with many bacteria, mild WBC -Blood and urine cultures pending -Empiric Cefepime/Metronidazole Respiratory Impression: patient of Dr. Hall. Stable currently -Continue home Prednisone 20mg orally since unknown duration -PRN Duonebs GERD -Continue Pantoprazole LE edema -Continue home Spironolactone 25mg BID -Continue home Lasix DVT PPX -Bilateral SCD's Code Status: Full code (3) Altered mental status Qualifiers: Altered mental status type: unspecified Qualified Code(s): R41.82 - Altered mental status, unspecified (4) Psychosis Qualifiers: Psychosis type: unspecified psychosis type Qualified Code(s): F29 - Unspecified psychosis not due to a substance or known physiological condition
[2018-01-03] MEDS ORDERED: Acetaminophen 325 MG Tablet PO PRN (12:58)
--- NOTE | 2018-01-03 13:46 | ECG ---
Date Performed: 01/03/2018 Time Performed: 07:18:19 PTAGE: 57 years EKG: Sinus rhythm POSSIBLE LEFT ATRIAL ENLARGEMENT MODERATE T-WAVE ABNORMALITY, CONSIDER LATERAL ISCHEMIA MODERATE T-W AVE ABNORMALITY, CONSIDER INFERIOR ISCHEMIA ABNORMAL ECG Clinical correlation will be important as th ere is no previous for comparison. NO PREVIOUS TRACING DOCTOR: Kerri Mancuso Interpretating Date/Time 01/03/2018 13:45:05
--- NOTE | 2018-01-03 13:50 | XR ---
EXAM DATE: 01/03/2018 1:37 PM EDT AGE/SEX: 57 years / Female INDICATIONS: Short of breath. CLINICAL DATA: This is the patient's initial encounter. Patient reports that signs and symptoms have been present for 1 day and indicates a pain score of 0/10. MEDICAL/SURGICAL HISTORY: Hypertension. . Diverticulitis. Colostomy. COMPARISON: No prior exams available for comparison. FINDINGS: A single AP view of the chest demonstrates the lungs to be symmetrically aerated without evidence of mass, infiltrate or effusion. The cardiomediastinal contours are unremarkable. Osseous structures a re intact. There is linear atelectasis at the left base. CONCLUSION: Left basilar atelectasis. Electronically signed by: Get Urbina MD 01/03/2018 1:49 PM EDT
[2018-01-03] MEDS: Dextrose 5%/NaCl 0.45% Inj 1,000 ML IV.CONT SCH (16:55)
[2018-01-03] MEDS: ALPRAZolam 0.25 MG Tablet PO PRN (17:17)
[2018-01-03] MEDS: Spironolactone 25 MG Tablet PO SCH (21:27)
[2018-01-03] MEDS: traZODone 100 MG Tablet PO SCH (21:27)
[2018-01-03] MEDS: Senna/Docusate Sodium 8.6/50 MG Tablet PO SCH (21:32)
[2018-01-04] MEDS: Dextrose 5%/NaCl 0.45% Inj 1,000 ML IV.CONT SCH ×3 (00:45→20:25)
[2018-01-04] MEDS: ALPRAZolam 0.25 MG Tablet PO PRN ×3 (02:55→19:19)
[2018-01-04] MEDS: KCL 20 mEq/D5W/NaCl 0.9% Inj 1,000 ML IV.CONT SCH (04:16)
[2018-01-04 05:42] LABS: Baso % (Auto) 0.2 % (0.0-2.0); Eos % (Auto) 0.4 % (0.0-4.0); Hematocrit 26.1 % (35.0-46.0); Hemoglobin 8.7 gm/dL (11.6-15.3); Lymph # (Auto) 1.2 th/mm3 (1.0-4.8); Lymph % (Auto) 11.6 % (9.0-44.0); Mean Corpuscular HGB Conc 33.5 % (32.0-36.0); Mean Corpuscular Hemoglobin 28.9 pg (27.0-34.0); Mean Corpuscular Volume 86.3 fL (80.0-100.0); Mean Platelet Volume 7.7 fL (7.0-11.0); Mono # (Auto) 0.5 th/mm3 (0.0-0.9); Mono % (Auto) 4.9 % (0.0-8.0); Neut # (Auto) 8.8 th/mm3 (1.8-7.7); Neut % (Auto) 82.9 % (16.0-70.0); Platelet Count 181 th/mm3 (150-450); Red Blood Count 3.02 mil/mm3 (4.00-5.30); Red Cell Distribution Width 17.8 % (11.6-17.2); White Blood Count 10.6 th/mm3 (4.0-11.0)
[2018-01-04 06:20] LABS: Alanine Aminotransferase 26 U/L (10-53); Albumin 1.7 g/dL (3.4-5.0); Alkaline Phosphatase 107 U/L (45-117); Anion Gap 10 meq/L (5-15); Aspartate Aminotransferase 24 U/L (15-37); Blood Urea Nitrogen 15 mg/dL (7-18); Calcium 7.9 mg/dL (8.5-10.1); Carbon Dioxide 25.9 meq/L (21.0-32.0); Chloride 106 meq/L (98-107); Glomerular Filtration Rate Greater Than 89 mL/min (>89); Glucose,Random 86 mg/dL (74-106); Potassium 3.6 meq/L (3.5-5.1); Sodium 142 meq/L (136-145); Total Protein 5.1 g/dL (6.4-8.2)
[2018-01-04 07:17] LABS: Platelet Estimate Normal (Normal); Platelet Morphology Normal (Normal)
[2018-01-04] MEDS: predniSONE 20 MG Tablet PO SCH (09:21)
[2018-01-04] MEDS: Senna/Docusate Sodium 8.6/50 MG Tablet PO SCH ×2 (09:21→20:22)
[2018-01-04] MEDS: Furosemide 40 MG Tablet PO SCH (09:22)
[2018-01-04] MEDS: Spironolactone 25 MG Tablet PO SCH ×2 (09:22→20:22)
--- NOTE | 2018-01-04 11:19 | P.CONGI ---
History of Present Illness Consult date: 01/04/18 Consult reason: Diffuse abdominal pain Chief complaint: UTI, TOXIX METABOLIC ENCEPHALOPATHY History of Present Illness: This is a 57-year-old overweight female who came into the hospital on 01/03/2018 with diffuse uncontrolled abdominal pain, pain scale 10 out of 10 which has waxed and waned over the past month but has worsened over the past week. Patient continues to be uncontrolled with her pain and is a poor historian possibly secondary to pain as well as some acute psychosis according to the record. According to the record patient had diverticulitis due to complications had colostomy and laparotomy with Dr. SALAZAR, at the [facility] in [place]. Patient has open abdominal wound as well as colostomy but no obvious bleeding noted. Initially patient had elevated bilirubin at 1.3 but is now normalized at 0.7. Patient also had AST of 41 ALT of 32 which is now normalized to AST 24 ALT 26. Patient has had a drop in her hemoglobin from admission 10.5 now 8.7 and a 24 hour. Patient states she has not been able to eat due to nausea and decreased appetite but has had no obvious vomiting. CT scan did show cholelithiasis and dilated biliary tree but also noted was multiple abscesses but no obstruction noted. Gastroenterology has been consulted to assist with patient's current symptoms and plan of care. Initially ordered on admission was ordered to assist in evaluation of abdominal abscesses. Patient was transitioned here from [facility] for her uncontrolled abdominal pain and further medical care. Unknown GI history for EGD colonoscopy or family history of colon cancer due to patient's anxiety/possible acute psychosis. <Zoraida Romo - Last Filed: 01/04/18 11:33> Review of Systems All other systems reviewed negative except as stated in HPI <Zoraida Romo - Last Filed: 01/04/18 11:33> PMFSH - History History Provided By: Patient - Medical History Medical History: Medical History (Last Reviewed 01/04/18 @ 08:46 by Pam Carver) Abdominal abscess Anxiety Chronic pain Colostomy in place Colostomy present on admission Constipation Diverticulitis Edema GERD (gastroesophageal reflux disease) Hypertension Hypokalemia Major depressive disorder Sepsis Shortness of breath UTI (urinary tract infection) - Surgical History Surgical History: Surgical History (Last Reviewed 01/04/18 @ 08:46 by Pam Carver) History of laparotomy - Tobacco History Tobacco Use In Past 30 Days: No Smoking Status: Former smoker Tobacco Type: Cigarettes - Alcohol History How Often Do You Have a Drink Containing Alcohol: Never - Substance Use History Substance History: No History of Abuse - Travel History Recent Travel in the [place] Within the Last 8 Weeks: No Recent Travel Out of the Country Within the Last 8 Weeks: No - Immunization History Tetanus Immunization: <5 Years Hx Influenza Vaccine This Season: Yes <Zoraida Romo - Last Filed: 01/04/18 11:33> - Medical History Medical History: Medical History (Last Reviewed 01/04/18 @ 08:46 by Pam Carver) Abdominal abscess Anxiety Chronic pain Colostomy in place Colostomy present on admission Constipation Diverticulitis Edema GERD (gastroesophageal reflux disease) Hypertension Hypokalemia Major depressive disorder Sepsis Shortness of breath UTI (urinary tract infection) - Surgical History Surgical History: Surgical History (Last Reviewed 01/04/18 @ 08:46 by Pam Carver) History of laparotomy <Fátima Wright - Last Filed: 01/04/18 16:03> Medications and Allergies Active Medications: Active Medications Acetaminophen (Tylenol) 650 mg PO Q4H PRN PRN Reason: Temp > 100.4 Albuterol (Duoneb Neb (Prn)) 1 ampul NEB Q6HR NEB PRN PRN Reason: Shortness Of Breath Or Wheezin Alprazolam (Xanax) 0.25 mg PO Q8H PRN PRN Reason: ANXIETY Last Admin: 01/04/18 02:55 Dose: 0.25 mg Bisacodyl (Dulcolax Ec) 5 mg PO DAILY PRN PRN Reason: Constipation Budesonide (Pulmocort Respule Neb) 0.5 mg NEB Q12HR NEB CAITILN Last Admin: 01/04/18 07:49 Dose: 0.5 mg Furosemide (Lasix) 40 mg PO DAILY CAITLIN Last Admin: 01/04/18 09:22 Dose: 40 mg Potassium Chloride/Dextrose/Sod Cl (D5w/Ns + Kcl 20 Meq Inj) 1,000 mls @ 100 mls/hr IV.CONT .Q10H [facility]LIN Last Admin: 01/04/18 04:16 Dose: Not Given Cefepime HCl 2,000 mg/ Sodium (Chloride) 100 mls @ 200 mls/hr IV.SIG Q12H [facility] Last Infusion: 01/03/18 22:45 Dose: Infused Dextrose/Sodium Chloride (D5w/1/2 Ns Inj) 1,000 mls @ 100 mls/hr IV.CONT .Q10H [facility] Last Admin: 01/04/18 00:45 Dose: Not Given Metronidazole/Sodium Chloride (Flagyl 500 Mg Inj) 100 mls @ 100 mls/hr IV.SIG Q8H [facility] Last Admin: 01/04/18 09:21 Dose: 100 mls/hr Ondansetron HCl (Zofran Inj) 4 mg IV.PUSH Q6H PRN PRN Reason: NAUSEA OR VOMITING Pantoprazole Sodium (Protonix) 40 mg PO DAILY [facility] Last Admin: 01/04/18 09:21 Dose: 40 mg Potassium Chloride (K-Dur) 20 meq PO DAILY [facility] Last Admin: 01/04/18 09:21 Dose: 20 meq Prednisone (Deltasone) 20 mg PO DAILY [facility] Last Admin: 01/04/18 09:21 Dose: 20 mg Senna/Docusate Sodium (Cristy-Colace) 1 tab PO BID [facility] Last Admin: 01/04/18 09:21 Dose: 1 tab Spironolactone (Aldactone) 25 mg PO BID [facility] Last Admin: 01/04/18 09:22 Dose: 25 mg Tramadol HCl (Ultram) 50 mg PO Q4H PRN PRN Reason: PAIN SCALE 1 TO 10 Last Admin: 01/04/18 06:40 Dose: 50 mg Trazodone HCl (Desyrel) 200 mg PO HS [facility] Last Admin: 01/03/18 21:27 Dose: 200 mg <Zoraida Romo - Last Filed: 01/04/18 11:33> Active Medications: Active Medications Acetaminophen (Tylenol) 650 mg PO Q4H PRN PRN Reason: Temp > 100.4 Albuterol (Duoneb Neb (Prn)) 1 ampul NEB Q6HR NEB PRN PRN Reason: Shortness Of Breath Or Wheezin Alprazolam (Xanax) 0.25 mg PO Q8H PRN PRN Reason: ANXIETY Last Admin: 01/04/18 11:09 Dose: 0.25 mg Bisacodyl (Dulcolax Ec) 5 mg PO DAILY PRN PRN Reason: Constipation Budesonide (Pulmocort Respule Neb) 0.5 mg NEB Q12HR NEB [facility] Last Admin: 01/04/18 07:49 Dose: 0.5 mg Furosemide (Lasix) 40 mg PO DAILY [facility] Last Admin: 01/04/18 09:22 Dose: 40 mg Cefepime HCl 2,000 mg/ Sodium (Chloride) 100 mls @ 200 mls/hr IV.SIG Q12H [facility] Last Admin: 01/04/18 11:09 Dose: 200 mls/hr Dextrose/Sodium Chloride (D5w/1/2 Ns Inj) 1,000 mls @ 100 mls/hr IV.CONT .Q10H [facility] Last Admin: 01/04/18 13:25 Dose: 100 mls/hr Metronidazole/Sodium Chloride (Flagyl 500 Mg Inj) 100 mls @ 100 mls/hr IV.SIG Q8H [facility] Last Infusion: 01/04/18 11:11 Dose: Infused Piperacillin/Tazobactam/Dextrose (Zosyn 3.375 Gm Premix) 50 mls @ 100 mls/hr IV.SIG Q6H [facility] Morphine Sulfate (Morphine Inj) 4 mg IV.PUSH Q4H PRN PRN Reason: Pain 7 to 10 Last Admin: 01/04/18 11:49 Dose: 4 mg Morphine Sulfate (Morphine Inj) 2 mg IV.PUSH Q4H PRN PRN Reason: Pain 3 to 6 Ondansetron HCl (Zofran Inj) 4 mg IV.PUSH Q6H PRN PRN Reason: NAUSEA OR VOMITING Pantoprazole Sodium (Protonix) 40 mg PO DAILY [facility] Last Admin: 01/04/18 09:21 Dose: 40 mg Potassium Chloride (K-Dur) 20 meq PO DAILY [facility] Last Admin: 01/04/18 09:21 Dose: 20 meq Prednisone (Deltasone) 20 mg PO DAILY [facility] Last Admin: 01/04/18 09:21 Dose: 20 mg Senna/Docusate Sodium (Cristy-Colace) 1 tab PO BID [facility] Last Admin: 01/04/18 09:21 Dose: 1 tab Spironolactone (Aldactone) 25 mg PO BID [facility] Last Admin: 01/04/18 09:22 Dose: 25 mg Trazodone HCl (Desyrel) [address] [facility] Last Admin: 01/03/18 21:27 Dose: 200 mg <Fátima Wright - Last Filed: 01/04/18 16:03> Allergies Allergy/AdvReac Type Severity Reaction Status Date / Time No Known Allergies Allergy Verified 01/03/18 07:51 Home Medications Medication Instructions Recorded Confirmed Type alprazolam 0.25 mg PO Q8H PRN 01/03/18 01/03/18 History bisacodyl 5 mg PO DAILY PRN 01/03/18 01/03/18 History budesonide 0.5 mg INHALATION Q12H 01/03/18 01/03/18 History dextromethorphan-guaifenesin 10 ml PO Q4H PRN 01/03/18 01/03/18 History [Alex DM] furosemide 40 mg PO DAILY 01/03/18 01/03/18 History ipratropium-albuterol 3 ml INHALATION Q6-8H PRN 01/03/18 01/03/18 History pantoprazole 40 mg PO DAILY 01/03/18 01/03/18 History potassium chloride [Klor-Con M20] 20 meq PO DAILY 01/03/18 01/03/18 History prednisone 20 mg PO DAILY 01/03/18 01/03/18 History spironolactone 25 mg PO BID 01/03/18 01/03/18 History tramadol 50 mg PO Q4-6H PRN 01/03/18 01/03/18 History trazodone 200 mg PO HS 01/03/18 01/03/18 History Exam Vital signs: Vital Signs 01/03/18 11:43 01/03/18 13:23 01/03/18 13:30 Temperature Pulse Rate 83 77 Respiratory Rate 18 16 Blood Pressure 109/64 112/70 Pulse Oximetry 98 98 01/03/18 16:00 01/03/18 20:00 01/03/18 21:55 Temperature 98.4 F 98.0 F Pulse Rate 89 93 H 90 Respiratory Rate 17 16 14 Blood Pressure 109/66 120/68 Pulse Oximetry 95 99 94 L 01/04/18 00:00 01/04/18 04:00 01/04/18 07:49 Temperature 98.4 F 98.5 F Pulse Rate 94 H 92 H 84 Respiratory Rate 17 16 14 Blood Pressure 117/50 L 110/57 L Pulse Oximetry 94 L 93 L 95 01/04/18 08:00 Temperature 97.4 F L Pulse Rate 87 Respiratory Rate 18 Blood Pressure 103/63 Pulse Oximetry 95 Intake & Output 01/03/18 01/04/18 01/04/18 18:59 06:59 18:59 Intake Total 1460 / 1460 2300 / 2300 Balance 1460 / 1460 2300 / 2300 Weight 93.4 kg Intake: IV 1100 / 1100 1300 / 1300 D5W/NS + KCL 20 mEq Inj 1,000 1000 / 1000 1000 / 1000 ML @ 100 mls/hr IV.CONT .Q10H [facility] Rx#:[id number] Maxipime Inj 1,000 MG In NS Inj 100 / 100 100 ML @ 200 mls/hr IV.SIG ONCE ONE Rx#:[id number] Maxipime Inj 2,000 MG In NS Inj 100 / 100 100 ML @ 200 mls/hr IV.SIG Q12H [facility] Rx#:[id number] Flagyl 500 MG Inj 100 ML @ 100 200 / 200 mls/hr IV.SIG Q8H [facility] Rx#: [id number] Oral 360 / 360 1000 / 1000 Other: # Voids 1 2 - Constitutional moderate distress, obese, chronically ill appearing, disheveled - Routine HEENT Exam Head: Present: normocephalic ENT: Present: mucous membranes dry - Routine Abdominal Exam Present: distended (Mild), guarding, wound (Open mid abdominal wound), ostomy ( New colostomy within the past month) <Zoraida Romo - Last Filed: 01/04/18 11:33> Vital signs: Vital Signs 01/03/18 20:00 01/03/18 21:55 01/04/18 00:00 Temperature 98.0 F 98.4 F Pulse Rate 93 H 90 94 H Respiratory Rate 16 14 17 Blood Pressure 120/68 117/50 L Pulse Oximetry 99 94 L 94 L 01/04/18 04:00 01/04/18 07:49 01/04/18 08:00 Temperature 98.5 F 97.4 F L Pulse Rate 92 H 84 87 Respiratory Rate 16 14 18 Blood Pressure 110/57 L 103/63 Pulse Oximetry 93 L 95 95 01/04/18 11:50 01/04/18 12:00 Temperature 97.4 F L Pulse Rate 91 H 91 H Respiratory Rate 16 18 Blood Pressure 118/66 118/66 Pulse Oximetry 97 Intake & Output 01/03/18 01/04/18 01/04/18 18:59 06:59 18:59 Intake Total 1460 / 1460 2300 / 2300 100 / 100 Balance 1460 / 1460 2300 / 2300 100 / 100 Weight 93.4 kg Intake: IV 1100 / 1100 1300 / 1300 100 / 100 D5W/NS + KCL 20 mEq Inj 1,000 1000 / 1000 1000 / 1000 ML @ 100 mls/hr IV.CONT .Q10H [facility] Rx#:[id number] Maxipime Inj 1,000 MG In NS Inj 100 / 100 100 ML @ 200 mls/hr IV.SIG ONCE ONE Rx#:[id number] Maxipime Inj 2,000 MG In NS Inj 100 / 100 100 ML @ 200 mls/hr IV.SIG Q12H [facility] Rx#:[id number] Flagyl 500 MG Inj 100 ML @ 100 200 / 200 100 / 100 mls/hr IV.SIG Q8H [facility] Rx#: [id number] Oral 360 / 360 1000 / 1000 Other: # Voids 1 2 Date of Last Bowel Movement 01/03/18 <Fátima Wright A - Last Filed: 01/04/18 16:03> Results - Labs CBC & Chem 7: 01/04/18 04:53 01/04/18 04:53 Labs: Laboratory Results - last 24 hr 01/03/18 01/03/18 01/04/18 11:18 14:15 04:53 WBC 10.6 RBC 3.02 L Hgb 8.7 L Hct 26.1 L MCV 86.3 MCH 28.9 MCHC 33.5 RDW 17.8 H Plt Count 181 MPV 7.7 Prelim Diff (Auto) Slide review pending Neut % (Auto) 82.9 H Lymph % (Auto) 11.6 Addison % (Auto) 4.9 Eos % (Auto) 0.4 Baso % (Auto) 0.2 Neut # (Auto) 8.8 H Lymph # (Auto) 1.2 Addison # (Auto) 0.5 Eos # (Auto) 0.0 Baso # (Auto) 0.0 WBC Differential . Diff Scan Auto diff confirmed Differential Comment . Platelet Estimate Normal Platelet Morphology Normal Sodium Potassium Chloride Carbon Dioxide Anion Gap BUN Creatinine Estimated GFR POC Glucose 102 Random Glucose Calcium Total Bilirubin AST ALT Alkaline Phosphatase Troponin I Less than 0.02 L Total Protein Albumin 01/04/18 01/04/18 04:53 09:46 WBC RBC Hgb Hct MCV MCH MCHC RDW Plt Count MPV Prelim Diff (Auto) Neut % (Auto) Lymph % (Auto) Addison % (Auto) Eos % (Auto) Baso % (Auto) Neut # (Auto) Lymph # (Auto) Addison # (Auto) Eos # (Auto) Baso # (Auto) WBC Differential Diff Scan Differential Comment Platelet Estimate Platelet Morphology Sodium 142 Potassium 3.6 Chloride 106 D Carbon Dioxide 25.9 Anion Gap 10 BUN 15 Creatinine 0.54 Estimated GFR Greater than 89 POC Glucose 100 Random Glucose 86 Calcium 7.9 L D Total Bilirubin 0.7 AST 24 ALT 26 Alkaline Phosphatase 107 Troponin I Total Protein 5.1 L D Albumin 1.7 L - Imaging Impressions Chest X-Ray 01/03/18 00:00 CONCLUSION: Left basilar atelectasis. <Zoraida Romo - Last Filed: 01/04/18 11:33> - Labs CBC & Chem 7: 01/04/18 04:53 01/04/18 04:53 Labs: Laboratory Results - last 24 hr 01/03/18 01/04/18 01/04/18 06:50 04:53 04:53 WBC 10.6 RBC 3.02 L Hgb 8.7 L Hct 26.1 L MCV 86.3 MCH 28.9 MCHC 33.5 RDW 17.8 H Plt Count 181 MPV 7.7 Prelim Diff (Auto) Slide review pending Neut % (Auto) 82.9 H Lymph % (Auto) 11.6 Addison % (Auto) 4.9 Eos % (Auto) 0.4 Baso % (Auto) 0.2 Neut # (Auto) 8.8 H Lymph # (Auto) 1.2 Addison # (Auto) 0.5 Eos # (Auto) 0.0 Baso # (Auto) 0.0 WBC Differential . Diff Scan Auto diff confirmed Differential Comment . Platelet Estimate Normal Platelet Morphology Normal Sodium 142 Potassium 3.6 Chloride 106 D Carbon Dioxide 25.9 Anion Gap 10 BUN 15 Creatinine 0.54 Estimated GFR Greater than 89 POC Glucose Random Glucose 86 Calcium 7.9 L D Total Bilirubin 0.7 AST 24 ALT 26 Alkaline Phosphatase 107 Total Protein 5.1 L D Albumin 1.7 L Urine Color Ladan Urine Clarity Hazy H Urine pH 5.0 Ur Specific Elbert 1.021 Urine Protein 100 H Urine Glucose (UA) Negative Urine Ketones 20 Urine Occult Blood Small H Urine Nitrate Negative Urine Bilirubin Negative Urine Urobilinogen 4 or greater Ur Leukocyte Esterase Negative Urine RBC 2 Urine WBC 6 H Ur Squamous Epith Cells 1 Urine Bacteria Many H Hyaline Casts 3 Urine Mucus Few H Micro UA Comment Cath-culture ind Urine Culture Comments Cath-cult indicated 01/04/18 09:46 WBC RBC Hgb Hct MCV MCH MCHC RDW Plt Count MPV Prelim Diff (Auto) Neut % (Auto) Lymph % (Auto) Addison % (Auto) Eos % (Auto) Baso % (Auto) Neut # (Auto) Lymph # (Auto) Addison # (Auto) Eos # (Auto) Baso # (Auto) WBC Differential Diff Scan Differential Comment Platelet Estimate Platelet Morphology Sodium Potassium Chloride Carbon Dioxide Anion Gap BUN Creatinine Estimated GFR POC Glucose 100 Random Glucose Calcium Total Bilirubin AST ALT Alkaline Phosphatase Total Protein Albumin Urine Color Urine Clarity Urine pH Ur Specific Elbert Urine Protein Urine Glucose (UA) Urine Ketones Urine Occult Blood Urine Nitrate Urine Bilirubin Urine Urobilinogen Ur Leukocyte Esterase Urine RBC Urine WBC Ur Squamous Epith Cells Urine Bacteria Hyaline Casts Urine Mucus Micro UA Comment Urine Culture Comments <Fátima Wright - Last Filed: 01/04/18 16:03> Assessment and Plan (1) History of diverticulitis Status: Acute Code(s): Z87.19 - Personal history of other diseases of the digestive system (2) Postoperative abdominal pain Status: Acute Code(s): R10.9 - Unspecified abdominal pain; G89.18 - Other acute postprocedural pain (3) Abdominal abscess Status: Acute - Plan 57-year-old overweight female who came into the hospital on 01/03/2018 with diffuse uncontrolled abdominal pain, pain scale 10 out of 10 which has waxed and waned over the past month but has worsened over the past week. Patient continues to be uncontrolled with her pain and is a poor historian possibly secondary to pain as well as some acute psychosis according to the record. History of diverticulitis due to complications had colostomy and laparotomy with Dr. SALAZAR, at the [facility] in [place]. Patient has open abdominal wound as well as colostomy but no obvious bleeding noted. Labs, elevated bilirubin at 1.3 but is now normalized at 0.7. Patient also had AST of 41 ALT of 32 which is now normalized to AST 24 ALT 26. Patient has had a drop in her hemoglobin from admission 10.5 now 8.7 and a 24 hour. nausea and decreased appetite but has had no obvious vomiting. CT scan did show cholelithiasis and dilated biliary tree but also noted was multiple abscesses but no obstruction noted. Gastroenterology has been consulted to assist with patient's current symptoms and plan of care. Initially ordered on admission was ordered to assist in evaluation of abdominal abscesses seen on CT scan postop. patient was transitioned here from [facility] for her uncontrolled abdominal pain and further medical care. Unknown GI history for EGD colonoscopy or family history of colon cancer due to patient's anxiety/possible acute psychosis. IR was initially ordered to evaluate further abdominal abscess, spoke with Dr. Nieto, about plan of care from a GI perspective versus postsurgical complications and possible evaluation for transfer back to original surgeon. Also discussed with Dr. Fox who is the attending. He has initiated request for possible transition back to Dr. SALAZAR service. CT scan showed cholelithiasis as well as dilated biliary tree, findings could be related to postop complications abscesses versus gallstones. Will consider MRCP if patient can tolerate. Plan Diet recommend clear liquids for now Pain management per attending continue IV hydration for now Consider MRCP once patient's pain is controlled and she can tolerate Monitor labs, Antibiotics per attending IV Flagyl PPI Further recommendations to follow Patient was seen per myself and Dr. Wright, note was written on his behalf <Zoraida Romo - Last Filed: 01/04/18 11:33> (1) History of diverticulitis Status: Acute Code(s): Z87.19 - Personal history of other diseases of the digestive system (2) Postoperative abdominal pain Status: Acute Code(s): R10.9 - Unspecified abdominal pain; G89.18 - Other acute postprocedural pain (3) Abdominal abscess Status: Acute - Attending Attestation Seen and examined, plan as above. Will check MRCP results, likely stone already passed. Will follow up with you. Thank you for the consult. <Fátima Wright - Last Filed: 01/04/18 16:03>
[2018-01-04] MEDS: Morphine Inj 4 MG/ML Vial IV.PUSH PRN ×3 (11:49→22:09)
[2018-01-04] MEDS ORDERED: Morphine Inj 4 MG/ML Vial IV.PUSH PRN (12:00)
--- NOTE | 2018-01-04 12:05 | P.CONPSY ---
Provisional Diagnosis Admission Date: January 03, 2018 12:48 [place] I.: Delirium due to another underlying medical condition, history of depression, history of anxiety History of Present Illness Service: Medicine Primary Care Provider: No Primary Care Physician Chief Complaint: altered mental stats, psychosis, UTI History of Present Illness: The patient is a is a 57 year old woman, domiciled in [place] by herself, single, unemployed, supported by savings, with psychiatric history of depression, anxiety, no previous psychiatric hospitalizations, no previous suicide attempts, she is on Xanax 0.5 mg 3 times daily, trazodone 200 mg at bedtime prescribed by PCP, with medical history of recent laparotomy and colostomy placement by Dr. Herndon (due to complications of diverticulitis at within the past month), recent abdominal infection, anxiety/depression, GERD, HTN who presented to [facility] rehabilitation facility due to altered mental status and psychosis. Per ED documentation, patient was doing well 01/01 but was found today putting stool from ostomy inside wound stating she wanted to . At ED, patient reported desire to use rifle to kill people in hospital. [facility] records reviewed- admitted to [facility] 12/31 from . Had diverticulitis; due to complications had colostomy and laparotomy. Patient had plans for abdominal dressing changes and follow-up with Dr. Herndon in 4 weeks. Patient also had been seeing Dr. Cabrera (ID) and Dr. Hall (Pulmonology) and had f/u appointments planned. Patient found to have WBC 14K, lactic acid 1.9. CT A/P suggestive of multiple masses/fluid and suggestion of abscess. UA suggestive of UTI. Patient also found to have glucose 60 and abnormal LFT's. Abdominal incision irrigated by nursing staff and re-dressed. Decision made to admit patient to medical service and consult psychiatry. I have reviewed the EMR. The patient has been seen by us in 2015 for adjustment disorder. On my psychiatric evaluation I find a patient that is distressed by pain, complaining of shortness of breath, but able to cooperate. The patient is fully oriented 3 , she knows who is the president, the patient is able to tell me the reason of hospitalization and provide me with a rational and very for explanation for her hospitalization. She reports that she feels much better now, but still in a lot of pain. She describes his mood as anxious "due to my pain and lack of sleep". She denies suicidal and homicidal ideation, she denies visual and auditory hallucinations. The patient is logical, she is coherent and relevant at the moment. I did not find any loosening of associations, any paranoia, any ideas of reference, disorganized behavior or speech, agitation or aggressive behavior at the moment. The patient denies the use of illegal drugs and alcohol. [facility] - History History Provided By: Patient - Medical History Medical History: Medical History (Last Reviewed 01/04/18 @ 08:46 by Pam Carver) Abdominal abscess Anxiety Chronic pain Colostomy in place Colostomy present on admission Constipation Diverticulitis Edema GERD (gastroesophageal reflux disease) Hypertension Hypokalemia Major depressive disorder Sepsis Shortness of breath UTI (urinary tract infection) - Surgical History Surgical History: Surgical History (Last Reviewed 01/04/18 @ 08:46 by Pam Carver) History of laparotomy - Tobacco History Tobacco Use In Past 30 Days: No Smoking Status: Former smoker Tobacco Type: Cigarettes - Alcohol History How Often Do You Have a Drink Containing Alcohol: Never - Substance Use History Substance History: No History of Abuse - Travel History Recent Travel in the [facility] Within the Last 8 Weeks: No Recent Travel Out of the Country Within the Last 8 Weeks: No - Immunization History Tetanus Immunization: <5 Years Hx Influenza Vaccine This Season: Yes Medications and Allergies Active Medications: Active Medications Acetaminophen (Tylenol) 650 mg PO Q4H PRN PRN Reason: Temp > 100.4 Albuterol (Duoneb Neb (Prn)) 1 ampul NEB Q6HR NEB PRN PRN Reason: Shortness Of Breath Or Wheezin Alprazolam (Xanax) 0.25 mg PO Q8H PRN PRN Reason: ANXIETY Last Admin: 01/04/18 11:09 Dose: 0.25 mg Bisacodyl (Dulcolax Ec) 5 mg PO DAILY PRN PRN Reason: Constipation Budesonide (Pulmocort Respule Neb) 0.5 mg NEB Q12HR NEB [facility] Last Admin: 01/04/18 07:49 Dose: 0.5 mg Furosemide (Lasix) 40 mg PO DAILY [facility] Last Admin: 01/04/18 09:22 Dose: 40 mg Cefepime HCl 2,000 mg/ Sodium (Chloride) 100 mls @ 200 mls/hr IV.SIG Q12H [facility] Last Admin: 01/04/18 11:09 Dose: 200 mls/hr Dextrose/Sodium Chloride (D5w/1/2 Ns Inj) 1,000 mls @ 100 mls/hr IV.CONT .Q10H [facility] Last Admin: 01/04/18 00:45 Dose: Not Given Metronidazole/Sodium Chloride (Flagyl 500 Mg Inj) 100 mls @ 100 mls/hr IV.SIG Q8H [facility] Last Infusion: 01/04/18 11:11 Dose: Infused Morphine Sulfate (Morphine Inj) 4 mg IV.PUSH Q4H PRN PRN Reason: Pain 7 to 10 Morphine Sulfate (Morphine Inj) 2 mg IV.PUSH Q4H PRN PRN Reason: Pain 3 to 6 Ondansetron HCl (Zofran Inj) 4 mg IV.PUSH Q6H PRN PRN Reason: NAUSEA OR VOMITING Pantoprazole Sodium (Protonix) 40 mg PO DAILY [facility] Last Admin: 01/04/18 09:21 Dose: 40 mg Potassium Chloride (K-Dur) 20 meq PO DAILY [facility] Last Admin: 01/04/18 09:21 Dose: 20 meq Prednisone (Deltasone) 20 mg PO DAILY [facility] Last Admin: 01/04/18 09:21 Dose: 20 mg Senna/Docusate Sodium (Cristy-Colace) 1 tab PO BID [facility] Last Admin: 01/04/18 09:21 Dose: 1 tab Spironolactone (Aldactone) 25 mg PO BID [facility] Last Admin: 01/04/18 09:22 Dose: 25 mg Trazodone HCl (Desyrel) 200 mg PO [facility] Last Admin: 01/03/18 21:27 Dose: 200 mg Allergies Allergy/AdvReac Type Severity Reaction Status Date / Time No Known Allergies Allergy Verified 01/03/18 07:51 Home Medications Medication Instructions Recorded Confirmed Type alprazolam 0.25 mg PO Q8H PRN 01/03/18 01/03/18 History bisacodyl 5 mg PO DAILY PRN 01/03/18 01/03/18 History budesonide 0.5 mg INHALATION Q12H 01/03/18 01/03/18 History dextromethorphan-guaifenesin 10 ml PO Q4H PRN 01/03/18 01/03/18 History [Alex DM] furosemide 40 mg PO DAILY 01/03/18 01/03/18 History ipratropium-albuterol 3 ml INHALATION Q6-8H PRN 01/03/18 01/03/18 History pantoprazole 40 mg PO DAILY 01/03/18 01/03/18 History potassium chloride [Klor-Con M20] 20 meq PO DAILY 01/03/18 01/03/18 History prednisone 20 mg PO DAILY 01/03/18 01/03/18 History spironolactone 25 mg PO BID 01/03/18 01/03/18 History tramadol 50 mg PO Q4-6H PRN 01/03/18 01/03/18 History trazodone 200 mg PO HS 01/03/18 01/03/18 History Exam Vital signs: Vital Signs 01/03/18 13:23 01/03/18 13:30 01/03/18 16:00 Temperature 98.4 F Pulse Rate 77 89 Respiratory Rate 16 17 Blood Pressure 112/70 109/66 Pulse Oximetry 98 95 01/03/18 20:00 01/03/18 21:55 01/04/18 00:00 Temperature 98.0 F 98.4 F Pulse Rate 93 H 90 94 H Respiratory Rate 16 14 17 Blood Pressure 120/68 117/50 L Pulse Oximetry 99 94 L 94 L 01/04/18 04:00 01/04/18 07:49 01/04/18 08:00 Temperature 98.5 F 97.4 F L Pulse Rate 92 H 84 87 Respiratory Rate 16 14 18 Blood Pressure 110/57 L 103/63 Pulse Oximetry 93 L 95 95 Intake & Output 01/03/18 01/04/18 01/04/18 18:59 06:59 18:59 Intake Total 1460 / 1460 2300 / 2300 100 / 100 Balance 1460 / 1460 2300 / 2300 100 / 100 Weight 93.4 kg Intake: IV 1100 / 1100 1300 / 1300 100 / 100 D5W/NS + KCL 20 mEq Inj 1,000 1000 / 1000 1000 / 1000 ML @ 100 mls/hr IV.CONT .Q10H [facility] Rx#:[id number] Maxipime Inj 1,000 MG In NS Inj 100 / 100 100 ML @ 200 mls/hr IV.SIG ONCE ONE Rx#:[id number] Maxipime Inj 2,000 MG In NS Inj 100 / 100 100 ML @ 200 mls/hr IV.SIG Q12H [facility] Rx#:[id number] Flagyl 500 MG Inj 100 ML @ 100 200 / 200 100 / 100 mls/hr IV.SIG Q8H [facility] Rx#: [id number] Oral 360 / 360 1000 / 1000 Other: # Voids 1 2 Date of Last Bowel Movement 01/03/18 Mental Status Examination Appearance: Appropriate Consciousness: Alert Orientation: x4 Motor Activity: Normal gait Speech: Unremarkable Language: Adequate Fund of Knowledge: Adequate Attention and Concentration: Adequate Memory: Unremarkable Mood: Sad Affect: Blunt Thought Process & Associations: Intact Thought Content: Appropriate Hallucination Type: None Delusion Type: None Suicidal Ideation: No Suicidal Plan: No Suicidal Intention: No Homicidal Ideation: No Homicidal Plan: No Homicidal Intention: No Insight: Fair Judgment: Adequate Assessment and Plan - Assessment (1) Delirium Code(s): R41.0 - Disorientation, unspecified Status: Acute - Plan Plan: Estimated LOS: [] days On psychiatric evaluation today the patient presents irritable, she is in distress due to pain, reports anxiety and depression in the context of acute pain, but denies suicidal and homicidal ideation, denies visual and auditory hallucinations. The patient is oriented 3, without fluctuation of consciousness, without attention deficit, she is logical coherent and relevant at the moment. As per documentation review, and report of the nurses, the patient has been disorganized at times, illogical, agitated. It seems to me that the patient most probably has been delirious given her multiple acute medical conditions, but I do not think the patient has been decompensated of a primary psychiatric condition. Continue Xanax 0.25 mg 3 times daily, continue trazodone 200 mg at bedtime. Unclear if the patient might benefit of a mood stabilizer or antipsychotic at this moment. She does not meet criteria for involuntary psychiatric admission. I will follow-up. Justification for Continued Inpatient Stay: No admission indicated at the moment.
--- NOTE | 2018-01-04 12:44 | P.PNIM ---
Subjective Interval history: Patient's primary complaint today is abdominal pain. Drain placement by interventional radiology is on hold until patient has an evaluation by a surgeon. Patient's associated surgeon has been contacted at [facility]. Awaiting callback. Physical Exam Vital signs: Vital Signs 01/03/18 13:23 01/03/18 13:30 01/03/18 16:00 Temperature 98.4 F Pulse Rate 77 89 Respiratory Rate 16 17 Blood Pressure 112/70 109/66 Pulse Oximetry 98 95 01/03/18 20:00 01/03/18 21:55 01/04/18 00:00 Temperature 98.0 F 98.4 F Pulse Rate 93 H 90 94 H Respiratory Rate 16 14 17 Blood Pressure 120/68 117/50 L Pulse Oximetry 99 94 L 94 L 01/04/18 04:00 01/04/18 07:49 01/04/18 08:00 Temperature 98.5 F 97.4 F L Pulse Rate 92 H 84 87 Respiratory Rate 16 14 18 Blood Pressure 110/57 L 103/63 Pulse Oximetry 93 L 95 95 01/04/18 11:50 01/04/18 12:00 Temperature 97.4 F L Pulse Rate 91 H 91 H Respiratory Rate 16 18 Blood Pressure 118/66 118/66 Pulse Oximetry 97 Intake & Output 01/03/18 01/04/18 01/04/18 18:59 06:59 18:59 Intake Total 1460 / 1460 2300 / 2300 100 / 100 Balance 1460 / 1460 2300 / 2300 100 / 100 Weight 93.4 kg Intake: IV 1100 / 1100 1300 / 1300 100 / 100 D5W/NS + KCL 20 mEq Inj 1,000 1000 / 1000 1000 / 1000 ML @ 100 mls/hr IV.CONT .Q10H [facility] Rx#:[id number] Maxipime Inj 1,000 MG In NS Inj 100 / 100 100 ML @ 200 mls/hr IV.SIG ONCE ONE Rx#:[id number] Maxipime Inj 2,000 MG In NS Inj 100 / 100 100 ML @ 200 mls/hr IV.SIG Q12H [facility] Rx#:[id number] Flagyl 500 MG Inj 100 ML @ 100 200 / 200 100 / 100 mls/hr IV.SIG Q8H [facility] Rx#: [id number] Oral 360 / 360 1000 / 1000 Other: # Voids 1 2 Date of Last Bowel Movement 01/03/18 Narrative: GENERAL: NAD, A&Ox3 HEAD: Normocephalic. NECK: Supple, trachea midline. No lymphadenopathy. EYES: No scleral icterus. No injection or drainage. CARDIOVASCULAR: Regular rate and rhythm without murmurs, gallops, or rubs. RESPIRATORY: Breath sounds equal bilaterally. No accessory muscle use. GASTROINTESTINAL: Abdomen soft, nondistended. Left-sided colostomy. Healing surgical wounds midline and right abdomen. Tender. No guarding. MUSCULOSKELETAL: No cyanosis, or edema. SKIN: Warm and dry. NEURO: No focal neurological deficits. Results - Labs CBC & Chem 7: 01/04/18 04:53 01/04/18 04:53 Laboratory Results - last 24 hr 01/03/18 01/04/18 01/04/18 14:15 04:53 04:53 WBC 10.6 RBC 3.02 L Hgb 8.7 L Hct 26.1 L MCV 86.3 MCH 28.9 MCHC 33.5 RDW 17.8 H Plt Count 181 MPV 7.7 Prelim Diff (Auto) Slide review pending Neut % (Auto) 82.9 H Lymph % (Auto) 11.6 [place] % (Auto) 4.9 Eos % (Auto) 0.4 Baso % (Auto) 0.2 Neut # (Auto) 8.8 H Lymph # (Auto) 1.2 [place] # (Auto) 0.5 Eos # (Auto) 0.0 Baso # (Auto) 0.0 WBC Differential . Diff Scan Auto diff confirmed Differential Comment . Platelet Estimate Normal Platelet Morphology Normal Sodium 142 Potassium 3.6 Chloride 106 D Carbon Dioxide 25.9 Anion Gap 10 BUN 15 Creatinine 0.54 Estimated GFR Greater than 89 POC Glucose Random Glucose 86 Calcium 7.9 L D Total Bilirubin 0.7 AST 24 ALT 26 Alkaline Phosphatase 107 Troponin I Less than 0.02 L Total Protein 5.1 L D Albumin 1.7 L 01/04/18 09:46 WBC RBC Hgb Hct MCV MCH MCHC RDW Plt Count MPV Prelim Diff (Auto) Neut % (Auto) Lymph % (Auto) [place] % (Auto) Eos % (Auto) Baso % (Auto) Neut # (Auto) Lymph # (Auto) [place] # (Auto) Eos # (Auto) Baso # (Auto) WBC Differential Diff Scan Differential Comment Platelet Estimate Platelet Morphology Sodium Potassium Chloride Carbon Dioxide Anion Gap BUN Creatinine Estimated GFR POC Glucose 100 Random Glucose Calcium Total Bilirubin AST ALT Alkaline Phosphatase Troponin I Total Protein Albumin Microbiology 01/03/18 02:25 Blood - Peripheral Aerobic Blood Culture - Preliminary No growth in 1 day 01/03/18 02:25 Blood - Peripheral Anaerobic Blood Culture - Preliminary No growth in 1 day 01/03/18 02:20 Blood - Peripheral Aerobic Blood Culture - Preliminary No growth in 1 day 01/03/18 02:20 Blood - Peripheral Anaerobic Blood Culture - Preliminary No growth in 1 day 01/03/18 02:20 Wound - Abdominal Gram Stain - Final - Imaging Impressions Chest X-Ray 01/03/18 00:00 CONCLUSION: Left basilar atelectasis. Assessment and Plan - Assessment (1) Abdominal abscess Status: Acute (2) Suicidal ideation Code(s): R45.851 - Suicidal ideations Status: Acute (3) Altered mental status Code(s): R41.82 - Altered mental status, unspecified Status: Acute (4) Psychosis Code(s): F29 - Unspecified psychosis not due to a substance or known physiological condition Status: Acute (5) Acute UTI Code(s): N39.0 - Urinary tract infection, site not specified Status: Acute - Plan 57-year-old female admitted secondary to metabolic encephalopathy related to UTI with complaints of abdominal pain status post new colectomy secondary to diverticulitis with abscess. Altered mental status Psychosis Acute metabolic encephalopathy Improving likely related to infection Treat infections as listed below Follow clinically for improvement Urinary tract infection SIRS Continue cefepime Continue metronidazole Follow cultures Status post colectomy Abdominal pain postsurgical changes seen on CT exam Several fluid collections are seen in this postop situation This could represent seroma versus abscess Mass also seen, uncertain if this is new Uncertain if abdominal pain represents new infections. Patient's been is consulted [facility] Awaiting input from surgery Potential need for interventional radiology and drainage if new abscesses are present Wound care following ID following GI following Consider in-house surgical consult if patient is not transferred to her primary surgeon Respiratory Continue prednisone Continue as needed duo nebs GERD Continue Pantoprazole LE edema Continue spironolactone and Lasix DVT prophylaxis SCDs (3) Altered mental status Qualifiers: Altered mental status type: unspecified Qualified Code(s): R41.82 - Altered mental status, unspecified (4) Psychosis Qualifiers: Psychosis type: unspecified psychosis type Qualified Code(s): F29 - Unspecified psychosis not due to a substance or known physiological condition
--- NOTE | 2018-01-04 15:58 | P.CONID ---
History of Present Illness Service: ID Consult date: 01/04/18 Requesting Physician: Arjun Friend Reason for Consult: IAA Primary Care Provider: No Primary Care Physician Chief Complaint: altered mental stats, psychosis, UTI History of Present Illness: 57-year-old female presents to the emergency department by EMS transport from [facility] for evaluation of altered mental status and acute psychosis. Per ER note patient was transported to the emergency department for further evaluation. Patient here is unable to provide any helpful or useful information as she states that she has every intention of taking her AK 47 and killing everyone in the hospital. No meaningful history provided by the pt She told me that she went to the hospital with what she thought was "gallbladeer painand ended up waking up with colostomy" History obtained thru other providers Pt was admitted weeks ago to [facility] with diverticulitis and , multiple intraabdominal abscesse Attempetd to be drained percutaneously, but failed and 2.5 weeks ago she had laparotomy with resectiona an colostomy Her drain wa removed 5 days ago Shw grew E.coli and isabel spp She had a hectic post op course and was in ICU She was eventually discharged to rehab but ended up in the hospital with abdominal pain and MS change she is afebrile but her WBC was 14.8 K No lactic acidosis On cefepime flagyl CT showed multiple abscess, up to [address] was dw Dr Nieto: multiple poorly organised very extensive abscesses PMH/PSH reviewd Fam hx non contributory Review of Systems All other systems reviewed negative except as stated in HPI PMFSH - History History Provided By: Patient - Medical History Medical History: Medical History (Last Reviewed 01/04/18 @ 15:30 by Leti Washington MD) Abdominal abscess Anxiety Chronic pain Colostomy in place Colostomy present on admission Constipation Diverticulitis Edema GERD (gastroesophageal reflux disease) Hypertension Hypokalemia Major depressive disorder Sepsis Shortness of breath UTI (urinary tract infection) - Surgical History Surgical History: Surgical History (Last Reviewed 01/04/18 @ 15:30 by Leti Washington MD) History of laparotomy - Family History Family History: Family History (Last Updated 01/16/18 @ 09:57 by Leti Washington MD) Other No pertinent family history - Social History I have reviewed the patient's Social History: Yes - Tobacco History Tobacco Use In Past 30 Days: No Smoking Status: Former smoker Tobacco Type: Cigarettes - Alcohol History How Often Do You Have a Drink Containing Alcohol: Never - Substance Use History Substance History: No History of Abuse - Travel History Recent Travel in the [place] Within the Last 8 Weeks: No Recent Travel Out of the Country Within the Last 8 Weeks: No - Immunization History Tetanus Immunization: <5 Years Hx Influenza Vaccine This Season: Yes Medications and Allergies Active Medications: Active Medications Acetaminophen (Tylenol) 650 mg PO Q4H PRN PRN Reason: Temp > 100.4 Albuterol (Duoneb Neb (Prn)) 1 ampul NEB Q6HR NEB PRN PRN Reason: Shortness Of Breath Or Wheezin Alprazolam (Xanax) 0.25 mg PO Q8H PRN PRN Reason: ANXIETY Last Admin: 01/04/18 11:09 Dose: 0.25 mg Bisacodyl (Dulcolax Ec) 5 mg PO DAILY PRN PRN Reason: Constipation Budesonide (Pulmocort Respule Neb) 0.5 mg NEB Q12HR NEB [facility] Last Admin: 01/04/18 07:49 Dose: 0.5 mg Furosemide (Lasix) 40 mg PO DAILY [facility] Last Admin: 01/04/18 09:22 Dose: 40 mg Cefepime HCl 2,000 mg/ Sodium (Chloride) 100 mls @ 200 mls/hr IV.SIG Q12H [facility] Last Admin: 01/04/18 11:09 Dose: 200 mls/hr Dextrose/Sodium Chloride (D5w/1/2 Ns Inj) 1,000 mls @ 100 mls/hr IV.CONT .Q10H [facility] Last Admin: 01/04/18 13:25 Dose: 100 mls/hr Metronidazole/Sodium Chloride (Flagyl 500 Mg Inj) 100 mls @ 100 mls/hr IV.SIG Q8H [facility] Last Infusion: 01/04/18 11:11 Dose: Infused Morphine Sulfate (Morphine Inj) 4 mg IV.PUSH Q4H PRN PRN Reason: Pain 7 to 10 Last Admin: 01/04/18 11:49 Dose: 4 mg Morphine Sulfate (Morphine Inj) 2 mg IV.PUSH Q4H PRN PRN Reason: Pain 3 to 6 Ondansetron HCl (Zofran Inj) 4 mg IV.PUSH Q6H PRN PRN Reason: NAUSEA OR VOMITING Pantoprazole Sodium (Protonix) 40 mg PO DAILY [facility] Last Admin: 01/04/18 09:21 Dose: 40 mg Potassium Chloride (K-Dur) 20 meq PO DAILY [facility] Last Admin: 01/04/18 09:21 Dose: 20 meq Prednisone (Deltasone) 20 mg PO DAILY [facility] Last Admin: 01/04/18 09:21 Dose: 20 mg Senna/Docusate Sodium (Cristy-Colace) 1 tab PO BID [facility] Last Admin: 01/04/18 09:21 Dose: 1 tab Spironolactone (Aldactone) 25 mg PO BID [facility] Last Admin: 01/04/18 09:22 Dose: 25 mg Trazodone HCl (Desyrel) 200 mg PO [facility] Last Admin: 01/03/18 21:27 Dose: 200 mg Allergies Allergy/AdvReac Type Severity Reaction Status Date / Time No Known Allergies Allergy Verified 01/03/18 07:51 Home Medications Medication Instructions Recorded Confirmed Type alprazolam 0.25 mg PO Q8H PRN 01/03/18 01/03/18 History bisacodyl 5 mg PO DAILY PRN 01/03/18 01/03/18 History budesonide 0.5 mg INHALATION Q12H 01/03/18 01/03/18 History dextromethorphan-guaifenesin 10 ml PO Q4H PRN 01/03/18 01/03/18 History [Rocio-Misha DM] furosemide 40 mg PO DAILY 01/03/18 01/03/18 History ipratropium-albuterol 3 ml INHALATION Q6-8H PRN 01/03/18 01/03/18 History pantoprazole 40 mg PO DAILY 01/03/18 01/03/18 History prednisone 20 mg PO DAILY 01/03/18 01/03/18 History spironolactone 25 mg PO BID 01/03/18 01/03/18 History trazodone 200 mg PO HS 01/03/18 01/03/18 History Exam Vital signs: Vital Signs 01/03/18 16:00 01/03/18 20:00 01/03/18 21:55 Temperature 98.4 F 98.0 F Pulse Rate 89 93 H 90 Respiratory Rate 17 16 14 Blood Pressure 109/66 120/68 Pulse Oximetry 95 99 94 L 01/04/18 00:00 01/04/18 04:00 01/04/18 07:49 Temperature 98.4 F 98.5 F Pulse Rate 94 H 92 H 84 Respiratory Rate 17 16 14 Blood Pressure 117/50 L 110/57 L Pulse Oximetry 94 L 93 L 95 01/04/18 08:00 01/04/18 11:50 01/04/18 12:00 Temperature 97.4 F L 97.4 F L Pulse Rate 87 91 H 91 H Respiratory Rate 18 16 18 Blood Pressure 103/63 118/66 118/66 Pulse Oximetry 95 97 Intake & Output 01/03/18 01/04/18 01/04/18 18:59 06:59 18:59 Intake Total 1460 / 1460 2300 / 2300 100 / 100 Balance 1460 / 1460 2300 / 2300 100 / 100 Weight 93.4 kg Intake: IV 1100 / 1100 1300 / 1300 100 / 100 D5W/NS + KCL 20 mEq Inj 1,000 1000 / 1000 1000 / 1000 ML @ 100 mls/hr IV.CONT .Q10H [facility] Rx#:[id number] Maxipime Inj 1,000 MG In NS Inj 100 / 100 100 ML @ 200 mls/hr IV.SIG ONCE ONE Rx#:[id number] Maxipime Inj 2,000 MG In NS Inj 100 / 100 100 ML @ 200 mls/hr IV.SIG Q12H [facility] Rx#:[id number] Flagyl 500 MG Inj 100 ML @ 100 200 / 200 100 / 100 mls/hr IV.SIG Q8H [facility] Rx#: [id number] Oral 360 / 360 1000 / 1000 Other: # Voids 1 2 Date of Last Bowel Movement 01/03/18 - Constitutional no acute distress, obese - Routine HEENT Exam Head: Present: normocephalic, atraumatic Eye: Present: EOMI, PERRL ENT: Present: mucous membranes moist, oropharynx clear - Routine Neck Exam Present: supple, full ROM - Routine Respiratory Exam Present: decreased breath sounds, CTA bilaterally - Routine Cardiovascular Exam Present: RRR, S1, S2 - Routine Abdominal Exam Present: soft, tenderness (exquisete with + guarding and reboound), distended, rebound, wound (Lapatotomy incision is dehisced with necrotictissue present and odorless serosang d/c), ostomy (pink) - Routine Extremities Exam Present: full ROM, pulses intact Comments: no cyanosis, clubbing or edema good refill - Routine Skin Exam Present: dry, warm Comments: no rash - Routine Neurological Exam Present: alert, oriented X3, CN II-XII intact, moving all extremities, vision grossly intact, hearing grossly intact, normal speech - Routine Psychiatric Exam Present: normal affect, cooperative Results - Labs CBC & Chem 7: 01/10/18 05:52 01/10/18 09:49 Labs: Laboratory Results - last 24 hr 01/03/18 01/04/18 01/04/18 06:50 04:53 04:53 WBC 10.6 RBC 3.02 L Hgb 8.7 L Hct 26.1 L MCV 86.3 MCH 28.9 MCHC 33.5 RDW 17.8 H Plt Count 181 MPV 7.7 Prelim Diff (Auto) Slide review pending Neut % (Auto) 82.9 H Lymph % (Auto) 11.6 [place] % (Auto) 4.9 Eos % (Auto) 0.4 Baso % (Auto) 0.2 Neut # (Auto) 8.8 H Lymph # (Auto) 1.2 [place] # (Auto) 0.5 Eos # (Auto) 0.0 Baso # (Auto) 0.0 WBC Differential . Diff Scan Auto diff confirmed Differential Comment . Platelet Estimate Normal Platelet Morphology Normal Sodium 142 Potassium 3.6 Chloride 106 D Carbon Dioxide 25.9 Anion Gap 10 BUN 15 Creatinine 0.54 Estimated GFR Greater than 89 POC Glucose Random Glucose 86 Calcium 7.9 L D Total Bilirubin 0.7 AST 24 ALT 26 Alkaline Phosphatase 107 Total Protein 5.1 L D Albumin 1.7 L Urine Color Ladan Urine Clarity Hazy H Urine pH 5.0 Ur Specific [place] 1.021 Urine Protein 100 H Urine Glucose (UA) Negative Urine Ketones 20 Urine Occult Blood Small H Urine Nitrate Negative Urine Bilirubin Negative Urine Urobilinogen 4 or greater Ur Leukocyte Esterase Negative Urine RBC 2 Urine WBC 6 H Ur Squamous Epith Cells 1 Urine Bacteria Many H Hyaline Casts 3 Urine Mucus Few H Micro UA Comment Cath-culture ind Urine Culture Comments Cath-cult indicated 01/04/18 09:46 WBC RBC Hgb Hct MCV MCH MCHC RDW Plt Count MPV Prelim Diff (Auto) Neut % (Auto) Lymph % (Auto) [place] % (Auto) Eos % (Auto) Baso % (Auto) Neut # (Auto) Lymph # (Auto) [place] # (Auto) Eos # (Auto) Baso # (Auto) WBC Differential Diff Scan Differential Comment Platelet Estimate Platelet Morphology Sodium Potassium Chloride Carbon Dioxide Anion Gap BUN Creatinine Estimated GFR POC Glucose 100 Random Glucose Calcium Total Bilirubin AST ALT Alkaline Phosphatase Total Protein Albumin Urine Color Urine Clarity Urine pH Ur Specific [place] Urine Protein Urine Glucose (UA) Urine Ketones Urine Occult Blood Urine Nitrate Urine Bilirubin Urine Urobilinogen Ur Leukocyte Esterase Urine RBC Urine WBC Ur Squamous Epith Cells Urine Bacteria Hyaline Casts Urine Mucus Micro UA Comment Urine Culture Comments - Imaging ITS Impressions Chest X-Ray 01/03/18 00:00 CONCLUSION: Left basilar atelectasis. Head CT 01/03/18 05:23 CONCLUSION: 1. Negative CT Head non contrast. . Abdomen/Pelvis CT 01/03/18 05:24 Bilateral breast implants are noted. There is left lower lobe atelectasis with air bronchogram formation. Trace pericardial fluid. Cholelithiasis is noted. There is diffuse biliary ductal dilatation involving intrahepatic, and extrahepatic biliary tree, common pelvic measuring up to 2.1 cm. It tapers as it approaches the ampulla. Kidneys, adrenals, spleen, pancreas unremarkable. Urinary bladder contained a small locule of air. The uterus is unremarkable. Distal colon is decompressed, and there is a left lower quadrant. There are several hypodense masses seen within the upper abdomen including just lateral to the descending portion of the duodenum, anterior to the pancreas. For example on the right upper quadrant on image 29 a 9 x 5 cm collection is present which is contiguous with a left upper quadrant mass measuring 7.1 x 5.4 cm in size. Similar appearing hypodense mass is seen just superior to the appendix in the right mid abdomen on image 42. There is also a crescentic rim- enhancing collection in the left paracolic region with adjacent surgical clips, and this collection contains air and fluid on axial image 36 this measures 6 x 1.8 cm in AP transverse dimension. There are no signs of bowel obstruction. Diffuse atherosclerotic calcification of the aorta and iliac vessels are noted. Review of bone windows demonstrate degenerative changes of the spine. There are post surgical changes to the anterior abdominal wall with subcutaneous air along the left lateral subcutaneous tissues just above the hip, and a small focus of subcutaneous air and fluid measuring 1.9 x 1.7 cm in AP transverse dimension on image 36 at the midline. CONCLUSION: 1. Extensive postsurgical changes are seen to the anterior abdominal wall, and left sided colostomy identified. 2. Cholelithiasis, and dilatation of the biliary tree is noted. 3. Low density mass-like foci are seen throughout the mid to upper abdomen as described above which has an appearance of masses versus focal fluid collections , and the possibility of carcinomatosis should be entertained. 4. There is a crescentic rim-enhancing fluid collection containing air in the left midabdomen paracolic region which would be most characteristic of an abscess. Assessment and Plan - Plan Diverticulitis Multiple intraabdominal abscesses sp resection/colostomy in [facility] Pt reqires draiange of those abscesses surgically (most likely) or via IR with surgical support to controll the infection Biliary ducts dilatation - LFTs nl. GI cosulted MRSA from surface wound clx previous clx with E.coli and isabel Doubt UTI , coag negative staph bacteriuria probably contamination - zosyn - Micafungin Vanco Pt needs to be transferred to [facility] to the care of her surgeon dw Emilia Macario and Keysha De León
[2018-01-04] MEDS ORDERED: Vancomycin Consult Pharmacy OTHER PRN (16:09)
[2018-01-04] MEDS: Micafungin Inj 150 MG in Sodium Chlor 0.9% Inj 100 ML IV.SIG SCH (18:09)
--- NOTE | 2018-01-04 18:20 | P.PNWCN ---
Wound Care Nurse Consult Description: Received wound management consult for abdominal incision from prior laparotomy- contaminated wound from Doctor Friend. Communicated with: RN Katherine hamilton Recommendation: Please continue moist to dry dressings will see patient tomorrow. Additional information: Attempted to see patient today for abdominal incision assessment, and new ostomy teaching.Patient is very anxious and painful. Pain medication cant be given at this time. RN Attempted to change dressing at bedside. Patient is complaining of pain, will follow up with patient tomorrow for incision assessment and ostomy teaching. Bowel Diversion Stoma - Bowel Stoma Left Lower Abdomen Stoma Edema: Yes Stoma Appearance: Irregular Shape Loop Supporting Amarjit: No Collection Device: Moldable Wafer Wafer Size: 2 3/4 Cut to Fit Cristy-Stomal Surrounding Tissue Sensation Description: No Symptoms
[2018-01-04] MEDS: Piperacil/Tazo 3.375 GM Premix 50 ML IV.SIG SCH (19:19)
[2018-01-04] MEDS: traZODone 100 MG Tablet PO SCH (20:22)
[2018-01-04] MEDS: Vancomycin Inj 1,000 MG in Sodium Chlor 0.9% Inj 250 ML IV.SIG SCH (20:23)
[2018-01-05] MEDS: Piperacil/Tazo 3.375 GM Premix 50 ML IV.SIG SCH ×4 (01:02→18:55)
[2018-01-05] MEDS: Morphine Inj 4 MG/ML Vial IV.PUSH PRN ×6 (02:19→23:35)
[2018-01-05] MEDS: ALPRAZolam 0.25 MG Tablet PO PRN ×3 (03:49→20:19)
[2018-01-05] MEDS: Dextrose 5%/NaCl 0.45% Inj 1,000 ML IV.CONT SCH ×3 (03:49→18:53)
[2018-01-05] MEDS: Vancomycin Inj 1,000 MG in Sodium Chlor 0.9% Inj 250 ML IV.SIG SCH ×3 (03:51→20:27)
[2018-01-05] MEDS: Spironolactone 25 MG Tablet PO SCH ×2 (09:15→20:19)
[2018-01-05] MEDS: Senna/Docusate Sodium 8.6/50 MG Tablet PO SCH ×2 (09:16→20:19)
[2018-01-05] MEDS: Furosemide 40 MG Tablet PO SCH (09:16)
[2018-01-05] MEDS: predniSONE 20 MG Tablet PO SCH (09:17)
--- NOTE | 2018-01-05 13:54 | P.PNIM ---
Subjective Interval history: Improvement in abdominal pain is seen today. The patient may have improvement secondary to increased narcotics for pain control. No new complaints are expressed. White blood cell count has a downward trend. Physical Exam Vital signs: Vital Signs 01/04/18 16:00 01/04/18 17:31 01/04/18 20:00 Temperature 97.3 F L 97.3 F L Pulse Rate 82 77 90 Respiratory Rate 18 17 Blood Pressure 112/56 L 109/70 113/56 L Pulse Oximetry 99 96 01/04/18 20:01 01/05/18 00:00 01/05/18 01:21 Temperature 98.2 F Pulse Rate 74 Respiratory Rate 18 18 Blood Pressure 109/65 Pulse Oximetry 99 97 01/05/18 08:00 01/05/18 08:30 01/05/18 12:00 Temperature 97.2 F L 97.9 F Pulse Rate 82 80 74 Respiratory Rate 18 12 19 Blood Pressure 106/67 112/68 Pulse Oximetry 100 98 94 L Intake & Output 01/04/18 01/05/18 01/05/18 18:59 06:59 18:59 Intake Total 1380 / 1380 2500 / 2500 Output Total 1100 / 1100 500 / 500 Balance 280 / 280 2000 / 2000 Weight 91 kg Intake: IV 100 / 100 1850 / 1850 D5W/1/2 NS Inj 1,000 ML @ 100 1000 / 1000 mls/hr IV.CONT .Q10H [facility] Rx#: [id number] Maxipime Inj 2,000 MG In NS Inj 100 / 100 100 ML @ 200 mls/hr IV.SIG Q12H [facility] Rx#:[id number] Mycamine Inj 150 MG In NS Inj 100 / 100 100 ML @ 100 mls/hr IV.SIG Q24H [facility] Rx#:[id number] Zosyn 3.375 GM Premix 50 ML @ 150 / 150 100 mls/hr IV.SIG Q6H [facility] Rx#: [id number] Vancomycin Inj 1,000 MG In NS 500 / 500 Inj 250 ML @ 250 mls/hr IV.SIG Q8H [facility] Rx#:[id number] Flagyl 500 MG Inj 100 ML @ 100 100 / 100 mls/hr IV.SIG Q8H [facility] Rx#: [id number] Oral 1280 / 1280 650 / 650 Output: Urine 1100 / 1100 500 / 500 Other: Date of Last Bowel Movement 01/03/18 01/03/18 Narrative: GENERAL: NAD, A&Ox3 HEAD: Normocephalic. NECK: Supple, trachea midline. No lymphadenopathy. EYES: No scleral icterus. No injection or drainage. CARDIOVASCULAR: Regular rate and rhythm without murmurs, gallops, or rubs. RESPIRATORY: Breath sounds equal bilaterally. No accessory muscle use. GASTROINTESTINAL: Abdomen soft, nondistended. Left-sided colostomy. Healing surgical wounds midline and right abdomen. Tender. No guarding. MUSCULOSKELETAL: No cyanosis, or edema. SKIN: Warm and dry. NEURO: No focal neurological deficits. Results - Labs CBC & Chem 7: 01/04/18 04:53 01/04/18 04:53 Laboratory Results - last 24 hr 01/03/18 06:50 Urine Color Ladan Urine Clarity Hazy H Urine pH 5.0 Ur Specific [place] 1.021 Urine Protein 100 H Urine Glucose (UA) Negative Urine Ketones 20 Urine Occult Blood Small H Urine Nitrate Negative Urine Bilirubin Negative Urine Urobilinogen 4 or greater Ur Leukocyte Esterase Negative Urine RBC 2 Urine WBC 6 H Ur Squamous Epith Cells 1 Urine Bacteria Many H Hyaline Casts 3 Urine Mucus Few H Micro UA Comment Cath-culture ind Urine Culture Comments Cath-cult indicated Microbiology 01/03/18 02:25 Blood - Peripheral Aerobic Blood Culture - Preliminary No growth in 2 days 01/03/18 02:25 Blood - Peripheral Anaerobic Blood Culture - Preliminary No growth in 2 days 01/03/18 02:20 Blood - Peripheral Aerobic Blood Culture - Preliminary No growth in 2 days 01/03/18 02:20 Blood - Peripheral Anaerobic Blood Culture - Preliminary No growth in 2 days 01/03/18 02:20 Wound - Abdominal Gram Stain - Final 01/03/18 02:20 Wound - Abdominal Wound Culture - Preliminary S. aureus MRSA 01/03/18 06:50 Catheterized Urine Urine Culture - Final Staphylococcus epidermidis Assessment and Plan - Assessment (1) Abdominal abscess Status: Acute (2) Suicidal ideation Code(s): R45.851 - Suicidal ideations Status: Acute (3) Altered mental status Code(s): R41.82 - Altered mental status, unspecified Status: Acute (4) Psychosis Code(s): F29 - Unspecified psychosis not due to a substance or known physiological condition Status: Acute (5) Acute UTI Code(s): N39.0 - Urinary tract infection, site not specified Status: Acute - Plan 57-year-old female admitted secondary to metabolic encephalopathy related to UTI with complaints of abdominal pain status post new colectomy secondary to diverticulitis with abscess. No acute changes. [facility] has been contacted on 2017 and 01/05/2018, no beds available thus far. Plan for transfer under her general surgeon Dr. Herndon, once bed available. Altered mental status Psychosis Acute metabolic encephalopathy Improving likely related to infection Treat infections as listed below Follow clinically for improvement Urinary tract infection SIRS Continue cefepime Continue metronidazole Follow cultures Status post colectomy Abdominal pain postsurgical changes seen on CT exam Several fluid collections are seen in this postop situation This could represent seroma versus abscess Mass also seen, uncertain if this is new Uncertain if abdominal pain represents new infections. Patient's been is consulted [facility] Awaiting input from surgery Potential need for interventional radiology and drainage if new abscesses are present Wound care following ID following GI following Respiratory Continue prednisone Continue as needed duo nebs GERD Continue Pantoprazole LE edema Continue spironolactone and Lasix DVT prophylaxis SCDs (3) Altered mental status Qualifiers: Altered mental status type: unspecified Qualified Code(s): R41.82 - Altered mental status, unspecified (4) Psychosis Qualifiers: Psychosis type: unspecified psychosis type Qualified Code(s): F29 - Unspecified psychosis not due to a substance or known physiological condition
[2018-01-05] MEDS ORDERED: Gadobutrol PF 7.5 MMOL/7.5 ML Vial (for RAD) IV.SIG ONE (15:53)
--- NOTE | 2018-01-05 16:01 | MR ---
EXAM DATE: 01/05/2018 3:51 PM EDT AGE/SEX: 57 years / Female INDICATIONS: Obstruction. CLINICAL DATA: This is the patient's subsequent encounter. Patient reports that signs and symptoms h ave been present for 3 days and indicates a pain score of 5/10. MEDICAL/SURGICAL HISTORY: . Hypotension . Gastric Bypass 1997, Colostomy, Abdominal (numerous) , Breast Augmentation [place] [facility] [place], 01/03/2018. . TECHNIQUE: Multisequence, multiplanar MRI examination was performed without contrast and after the in travenous administration of 7 ml Gadavist (gadobutrol) contrast as a single exam dose. FINDINGS: Is diffuse dilatation of the intrahepatic and extrahepatic biliary tree, the left hepatic duct measur es up to 1.6 cm, right hepatic duct up to 1.7 cm and maximal dimension. Cholelithiasis is noted. The common bile duct measures up to 2.1 cm. It tapers as it approaches the ampulla. Kidneys, spleen unrem arkable. Corresponding to the findings on the recent CT examination are multiple T2 hyperintense mass es with rim enhancement, as well as some free fluid in the left paracolic gutter. There is a colostom y in the left lower quadrant. CONCLUSION: 1. There is marked dilatation of the biliary tree with cholelithiasis as well as a stone in the cyst ic duct. 2. Intra-abdominal masses are seen as noted previously. Electronically signed by: Get Urbina MD 01/05/2018 3:59 PM EDT
[2018-01-05] MEDS: Micafungin Inj 150 MG in Sodium Chlor 0.9% Inj 100 ML IV.SIG SCH (17:00)
--- NOTE | 2018-01-05 17:10 | P.PNWCN ---
Wound Care Nurse Consult Description: Received wound management consult for abdominal incision from prior laparotomy- contaminated wound per Dr Friend. Communicated with: Tried multiple times to page physician through call center and was on hold for an insane amount of time. Attempted to call liliana HARKINS and no one was logged in to soy. SHAHANA Kent Recommendation: Given the wound cultures that came back positive for S. aureus MRSA; Daily to midline abdominal wound: Remove all packing and cleanse wound with NS and gauze. Apply quarter strength Dakins (0.125%) to 4x4 gauze pads, squeeze out excess. Lightly pack fluffed moistened Dakins gauze into open abdominal wound. Skin prep periwound using skin barrier film. Cover with bordered gauze dressing. Date dressing. Additional information: Patient seen on for abdominal wound. SHAHANA Kent at bedside states that dressing was done over night and she was given in report that the dressings should be kept to a minimum. SHAHANA Kent also states that the night nurse can change dressing again tonight if needed. SHAHANA Kent states that patient is to be discharged to [facility] where her Dr Herndon will resume care. SHAHANA Kent removed part of the dressing for caption writer to take a peek at the distal portion of the wound that appears to be unapproximated and packed tightly with moist gauze covered with abd pads and paper tape dated 01/04/18. There is no active drainage and no apparent odor noted. Wound appears to be ~2cm wide and 2cm deep with an unknown length due to dressing that remained in place. Bowel Diversion Stoma - Bowel Stoma Left Lower Abdomen Stoma Appearance: Irregular Shape, Pale, Protruding Collection Device: Two-piece Drainage Description: Liquid, Brown (Stoma is located on left side abdomen, hard , raised flat appearance with pale color, lumen could not be identified. Mucocutaneous junction and peristomal skin not visualized at this time.) Wafer Size: 2 1/4 Moldable Cristy-Stomal Surrounding Tissue Sensation Description: No Symptoms
--- NOTE | 2018-01-05 18:32 | P.PNGI ---
Subjective Interval history: Patient still complains of some right upper quadrant pain, mild nausea but no vomiting MRCP pending <Zoraida Romo M - Last Filed: 01/05/18 18:32> Physical Exam Vital signs: Vital Signs 01/04/18 20:00 01/04/18 20:01 01/05/18 00:00 Temperature 97.3 F L 98.2 F Pulse Rate 90 74 Respiratory Rate 17 18 Blood Pressure 113/56 L 109/65 Pulse Oximetry 96 99 97 01/05/18 01:21 01/05/18 08:00 01/05/18 08:30 Temperature 97.2 F L Pulse Rate 82 80 Respiratory Rate 18 18 12 Blood Pressure 106/67 Pulse Oximetry 100 98 01/05/18 12:00 01/05/18 16:00 Temperature 97.9 F 98.1 F Pulse Rate 74 88 Respiratory Rate 19 19 Blood Pressure 112/68 105/74 Pulse Oximetry 94 L 97 Intake & Output 01/04/18 01/05/18 01/05/18 18:59 06:59 18:59 Intake Total 1380 / 1380 2500 / 2500 1260 / 1260 Output Total 1100 / 1100 500 / 500 1000 / 1000 Balance 280 / 280 2000 / 2000 260 / 260 Weight 91 kg Intake: IV 100 / 100 1850 / 1850 300 / 300 D5W/1/2 NS Inj 1,000 ML @ 100 1000 / 1000 mls/hr IV.CONT .Q10H [facility] Rx#: [id number] Maxipime Inj 2,000 MG In NS Inj 100 / 100 100 ML @ 200 mls/hr IV.SIG Q12H [facility] Rx#:[id number] Mycamine Inj 150 MG In NS Inj 100 / 100 100 ML @ 100 mls/hr IV.SIG Q24H [facility] Rx#:[id number] Zosyn 3.375 GM Premix 50 ML @ 150 / 150 50 / 50 100 mls/hr IV.SIG Q6H [facility] Rx#: [id number] Vancomycin Inj 1,000 MG In NS 500 / 500 250 / 250 Inj 250 ML @ 250 mls/hr IV.SIG Q8H [facility] Rx#:[id number] Flagyl 500 MG Inj 100 ML @ 100 100 / 100 mls/hr IV.SIG Q8H [facility] Rx#: [id number] Oral 1280 / 1280 650 / 650 960 / 960 Output: Urine 1100 / 1100 500 / 500 1000 / 1000 Other: Date of Last Bowel Movement 01/03/18 01/03/18 - Constitutional mild distress - Routine HEENT Exam Head: Present: normocephalic ENT: Present: mucous membranes moist - Routine Abdominal Exam Present: normoactive bowel sounds (Right upper quadrant discomfort) - Routine Skin Exam Present: intact <Zoraida Romo - Last Filed: 01/05/18 18:32> Vital signs: Vital Signs 01/05/18 12:00 01/05/18 16:00 01/05/18 20:00 Temperature 97.9 F 98.1 F 98.4 F Pulse Rate 74 88 85 Respiratory Rate 19 19 19 Blood Pressure 112/68 105/74 103/71 Pulse Oximetry 94 L 97 95 01/05/18 20:39 01/06/18 00:00 01/06/18 01:22 Temperature 98.2 F Pulse Rate 80 80 Respiratory Rate 14 20 18 Blood Pressure 107/67 Pulse Oximetry 98 01/06/18 08:00 01/06/18 08:34 Temperature 98.0 F Pulse Rate 103 H 93 H Respiratory Rate 17 12 Blood Pressure 109/73 Pulse Oximetry 95 98 Intake & Output 01/05/18 01/06/18 01/06/18 18:59 06:59 18:59 Intake Total 2360 / 2360 1650 / 1650 50 / 50 Output Total 1000 / 1000 600 / 600 Balance 1360 / 1360 1050 / 1050 50 / 50 Weight 91.3 kg Intake: IV 1400 / 1400 350 / 350 50 / 50 D5W/1/2 NS Inj 1,000 ML @ 100 1000 / 1000 mls/hr IV.CONT .Q10H [facility] Rx#: [id number] Mycamine Inj 150 MG In NS Inj 100 / 100 100 ML @ 100 mls/hr IV.SIG Q24H [facility] Rx#:[id number] Zosyn 3.375 GM Premix 50 ML @ 50 / 50 100 / 100 50 / 50 100 mls/hr IV.SIG Q6H [facility] Rx#: [id number] Vancomycin Inj 1,000 MG In NS 250 / 250 Inj 250 ML @ 250 mls/hr IV.SIG Q8H [facility] Rx#:[id number] Oral 960 / 960 1300 / 1300 Output: Urine 1000 / 1000 600 / 600 Other: # Voids 4 Date of Last Bowel Movement 01/03/18 01/03/18 01/05/18 <Fátima Wright - Last Filed: 01/06/18 10:41> Results - Labs CBC & Chem 7: 01/04/18 04:53 01/04/18 04:53 Microbiology 01/03/18 02:25 Blood - Peripheral Aerobic Blood Culture - Preliminary No growth in 2 days 01/03/18 02:25 Blood - Peripheral Anaerobic Blood Culture - Preliminary No growth in 2 days 01/03/18 02:20 Blood - Peripheral Aerobic Blood Culture - Preliminary No growth in 2 days 01/03/18 02:20 Blood - Peripheral Anaerobic Blood Culture - Preliminary No growth in 2 days 01/03/18 02:20 Wound - Abdominal Gram Stain - Final 01/03/18 02:20 Wound - Abdominal Wound Culture - Preliminary S. aureus MRSA 01/03/18 06:50 Catheterized Urine Urine Culture - Final Staphylococcus epidermidis - Imaging Impressions Cholangiopancreatography MRI 01/05/18 00:00 CONCLUSION: 1. There is marked dilatation of the biliary tree with cholelithiasis as well as a stone in the cystic duct. 2. Intra-abdominal masses are seen as noted previously. <Zoraida Romo - Last Filed: 01/05/18 18:32> - Labs CBC & Chem 7: 01/06/18 05:39 01/06/18 05:39 Laboratory Results - last 24 hr 01/05/18 01/06/18 01/06/18 20:20 05:39 05:39 WBC 12.1 H RBC 3.45 L Hgb 9.6 L Hct 29.5 L MCV 85.4 MCH 27.8 MCHC 32.5 RDW 17.6 H Plt Count 195 MPV 8.0 Prelim Diff (Auto) Slide review pending Neut % (Auto) 76.7 H Lymph % (Auto) 17.5 Dougherty % (Auto) 5.2 Eos % (Auto) 0.5 Baso % (Auto) 0.1 Neut # (Auto) 9.2 H Lymph # (Auto) 2.1 Dougherty # (Auto) 0.6 Eos # (Auto) 0.1 Baso # (Auto) 0.0 WBC Differential Manual diff final Seg Neuts % (Manual) 79 H Band Neuts % (Manual) 9 H Lymphocytes % (Manual) 7 L Monocytes % (Manual) 1 Eosinophils % (Manual) 1 Metamyelocytes % (Man) 1 Myelocytes % (Man) 2 H Abs Neuts (Manual) 11.0 H Differential Comment . Platelet Estimate Normal Platelet Morphology Normal Sodium 140 Potassium 3.0 L Chloride 101 Carbon Dioxide 29.2 Anion Gap 10 BUN 11 Creatinine 0.77 Estimated GFR 77 L Random Glucose 72 L Calcium 8.3 L Total Bilirubin 0.8 AST 23 ALT 27 Alkaline Phosphatase 266 H Total Protein 5.8 L D Albumin 2.0 L Vancomycin Trough 29.5 H Random Vancomycin 37.2 Microbiology 01/03/18 02:20 Wound - Abdominal Gram Stain - Final 01/03/18 02:20 Wound - Abdominal Wound Culture - Final S. aureus MRSA Clostridium species 01/03/18 02:25 Blood - Peripheral Aerobic Blood Culture - Preliminary No growth in 2 days 01/03/18 02:25 Blood - Peripheral Anaerobic Blood Culture - Preliminary No growth in 2 days 01/03/18 02:20 Blood - Peripheral Aerobic Blood Culture - Preliminary No growth in 2 days 01/03/18 02:20 Blood - Peripheral Anaerobic Blood Culture - Preliminary No growth in 2 days 01/03/18 06:50 Catheterized Urine Urine Culture - Final Staphylococcus epidermidis - Imaging Impressions Cholangiopancreatography MRI 01/05/18 00:00 CONCLUSION: 1. There is marked dilatation of the biliary tree with cholelithiasis as well as a stone in the cystic duct. 2. Intra-abdominal masses are seen as noted previously. <Fátima Wright - Last Filed: 01/06/18 10:41> Assessment and Plan (1) History of diverticulitis Status: Acute Code(s): Z87.19 - Personal history of other diseases of the digestive system (2) Postoperative abdominal pain Status: Acute Code(s): R10.9 - Unspecified abdominal pain; G89.18 - Other acute postprocedural pain (3) Abdominal abscess Status: Acute - Plan 57-year-old overweight female who came into the hospital on 01/03/2018 with diffuse uncontrolled abdominal pain, pain scale 10 out of 10 which has waxed and waned over the past month but has worsened over the past week. Patient continues to be uncontrolled with her pain and is a poor historian possibly secondary to pain as well as some acute psychosis according to the record. History of diverticulitis due to complications had colostomy and laparotomy with Dr. SALAZAR, at the [facility] in [place]. Patient has open abdominal wound as well as colostomy but no obvious bleeding noted. Labs, elevated bilirubin at 1.3 but is now normalized at 0.7. Patient also had AST of 41 ALT of 32 which is now normalized to AST 24 ALT 26. Patient has had a drop in her hemoglobin from admission 10.5 now 8.7 and a 24 hour. nausea and decreased appetite but has had no obvious vomiting. CT scan did show cholelithiasis and dilated biliary tree but also noted was multiple abscesses but no obstruction noted. Gastroenterology has been consulted to assist with patient's current symptoms and plan of care. Initially ordered on admission was ordered to assist in evaluation of abdominal abscesses seen on CT scan postop. patient was transitioned here from [facility] for her uncontrolled abdominal pain and further medical care. Unknown GI history for EGD colonoscopy or family history of colon cancer due to patient's anxiety/possible acute psychosis. IR was initially ordered to evaluate further abdominal abscess, spoke with Dr. Nieto, about plan of care from a GI perspective versus postsurgical complications and possible evaluation for transfer back to original surgeon. Also discussed with Dr. Fox who is the attending. He has initiated request for possible transition back to Dr. SALAZAR service. CT scan showed cholelithiasis as well as dilated biliary tree, findings could be related to postop complications abscesses versus gallstones. Will consider MRCP if patient can tolerate. 01/05/2018 patient still complains of some right upper quadrant discomfort does appear to be gradually more comfortable than on admission with pain management. MRCP back this p.m. which showed marked dilatation of the biliary tree with cholelithiasis as well as a stone in the cystic duct. Intra-abdominal masses also noted as previous. continue hydration and pain management, labs. Still may be able to transfer back to her original facility, pending for now Plan Diet Pain management per attending IV hydration for now Monitor labs, Zosyn, steroids, IV Flagyl PPI Patient was seen per myself and Dr. Wright, note was written on his behalf <Zoraida Romo - Last Filed: 01/05/18 18:32> (1) History of diverticulitis Status: Acute Code(s): Z87.19 - Personal history of other diseases of the digestive system (2) Postoperative abdominal pain Status: Acute Code(s): R10.9 - Unspecified abdominal pain; G89.18 - Other acute postprocedural pain (3) Abdominal abscess Status: Acute - Attending Attestation Seen and examined, MRCP findings noted, will get surgical team opinion for possible cholecystectomy, no evidence of CBD stone or Mirrizzi syndrome by labs and MRCP. Will follow up with you. <Fátima Wright - Last Filed: 01/06/18 10:41>
[2018-01-05] MEDS ORDERED: Pharmacy Ordered Lab Info OTHER ONE (19:45)
[2018-01-05] MEDS: traZODone 100 MG Tablet PO SCH (20:19)
[2018-01-06] MEDS: Piperacil/Tazo 3.375 GM Premix 50 ML IV.SIG SCH ×5 (00:05→22:42)
[2018-01-06] MEDS: Dextrose 5%/NaCl 0.45% Inj 1,000 ML IV.CONT SCH ×4 (02:23→21:33)
[2018-01-06] MEDS: Morphine Inj 4 MG/ML Vial IV.PUSH PRN ×4 (04:01→21:30)
[2018-01-06] MEDS: ALPRAZolam 0.25 MG Tablet PO PRN ×3 (05:05→22:42)
[2018-01-06 07:21] LABS: Baso % (Auto) 0.1 % (0.0-2.0); Eos # (Auto) 0.1 th/mm3 (0.0-0.4); Eos % (Auto) 0.5 % (0.0-4.0); Hematocrit 29.5 % (35.0-46.0); Hemoglobin 9.6 gm/dL (11.6-15.3); Lymph # (Auto) 2.1 th/mm3 (1.0-4.8); Lymph % (Auto) 17.5 % (9.0-44.0); Mean Corpuscular HGB Conc 32.5 % (32.0-36.0); Mean Corpuscular Hemoglobin 27.8 pg (27.0-34.0); Mean Corpuscular Volume 85.4 fL (80.0-100.0); Mono # (Auto) 0.6 th/mm3 (0.0-0.9); Mono % (Auto) 5.2 % (0.0-8.0); Neut # (Auto) 9.2 th/mm3 (1.8-7.7); Neut % (Auto) 76.7 % (16.0-70.0); Platelet Count 195 th/mm3 (150-450); Red Blood Count 3.45 mil/mm3 (4.00-5.30); Red Cell Distribution Width 17.6 % (11.6-17.2); White Blood Count 12.1 th/mm3 (4.0-11.0)
[2018-01-06 07:54] LABS: Alanine Aminotransferase 27 U/L (10-53); Anion Gap 10 meq/L (5-15); Aspartate Aminotransferase 23 U/L (15-37); Blood Urea Nitrogen 11 mg/dL (7-18); Calcium 8.3 mg/dL (8.5-10.1); Carbon Dioxide 29.2 meq/L (21.0-32.0); Chloride 101 meq/L (98-107); Glomerular Filtration Rate 77 mL/min (>89); Glucose,Random 72 mg/dL (74-106); Sodium 140 meq/L (136-145)
[2018-01-06 07:56] LABS: Alkaline Phosphatase 266 U/L (45-117); Total Protein 5.8 g/dL (6.4-8.2); Vancomycin,Random 37.2 Comment
[2018-01-06 08:35] LABS: Eosinophils 1 % (0-4); Lymphocytes 7 % (9-44); Metamyelocytes 1 % (0-1); Monocytes 1 % (0-8); Myelocytes 2 % (0-0); Path Slide Review N; Platelet Morphology Normal (Normal)
[2018-01-06 08:36] LABS: Platelet Estimate Normal (Normal)
[2018-01-06] MEDS: Senna/Docusate Sodium 8.6/50 MG Tablet PO SCH ×2 (09:05→21:28)
[2018-01-06] MEDS: Furosemide 40 MG Tablet PO SCH (09:05)
[2018-01-06] MEDS: Spironolactone 25 MG Tablet PO SCH ×2 (09:05→21:28)
[2018-01-06] MEDS: predniSONE 20 MG Tablet PO SCH (10:31)
[2018-01-06 11:35] LABS: Magnesium 1.3 mg/dL (1.5-2.5)
--- NOTE | 2018-01-06 12:27 | P.PN ---
Subjective Interval history: Abdominal wall infection. States she has more discomfort in her bilateral legs than her abdomen. Complains of burning pain in her legs denies diabetes mellitus. Tolerating diet. Potassium and magnesium both low currently being replaced. Physical Exam Vital signs: Vital Signs 01/05/18 16:00 01/05/18 20:00 01/05/18 20:39 Temperature 98.1 F 98.4 F Pulse Rate 88 85 80 Respiratory Rate 19 19 14 Blood Pressure 105/74 103/71 Pulse Oximetry 97 95 01/06/18 00:00 01/06/18 01:22 01/06/18 08:00 Temperature 98.2 F 98.0 F Pulse Rate 80 103 H Respiratory Rate 20 18 17 Blood Pressure 107/67 109/73 Pulse Oximetry 98 95 01/06/18 08:34 Temperature Pulse Rate 93 H Respiratory Rate 12 Blood Pressure Pulse Oximetry 98 Intake & Output 01/05/18 01/06/18 01/06/18 18:59 06:59 18:59 Intake Total 2360 / 2360 1650 / 1650 50 / 50 Output Total 1000 / 1000 600 / 600 Balance 1360 / 1360 1050 / 1050 50 / 50 Weight 91.3 kg Intake: IV 1400 / 1400 350 / 350 50 / 50 D5W/1/2 NS Inj 1,000 ML @ 100 1000 / 1000 mls/hr IV.CONT .Q10H [facility] Rx#: [id number] Mycamine Inj 150 MG In NS Inj 100 / 100 100 ML @ 100 mls/hr IV.SIG Q24H [facility] Rx#:[id number] Zosyn 3.375 GM Premix 50 ML @ 50 / 50 100 / 100 50 / 50 100 mls/hr IV.SIG Q6H [facility] Rx#: [id number] Vancomycin Inj 1,000 MG In NS 250 / 250 Inj 250 ML @ 250 mls/hr IV.SIG Q8H [facility] Rx#:[id number] Oral 960 / 960 1300 / 1300 Output: Urine 1000 / 1000 600 / 600 Other: # Voids 4 Date of Last Bowel Movement 01/03/18 01/03/18 01/05/18 Narrative: GENERAL: NAD, A&Ox3 CARDIOVASCULAR: Regular rate and rhythm without murmurs, gallops, or rubs. RESPIRATORY: Breath sounds equal bilaterally. No accessory muscle use. GASTROINTESTINAL: Abdomen soft, nondistended. Left-sided colostomy. Healing surgical wounds midline and right abdomen. Sl Tender. No guarding. MUSCULOSKELETAL: No cyanosis, or edema. SKIN: Warm and dry. NEURO: No focal neurological deficits. Results - Labs CBC & Chem 7: 01/06/18 05:39 01/06/18 05:39 Laboratory Results - last 24 hr 01/05/18 01/06/18 01/06/18 20:20 05:39 05:39 WBC 12.1 H RBC 3.45 L Hgb 9.6 L Hct 29.5 L MCV 85.4 MCH 27.8 MCHC 32.5 RDW 17.6 H Plt Count 195 MPV 8.0 Prelim Diff (Auto) Slide review pending Neut % (Auto) 76.7 H Lymph % (Auto) 17.5 Amelia % (Auto) 5.2 Eos % (Auto) 0.5 Baso % (Auto) 0.1 Neut # (Auto) 9.2 H Lymph # (Auto) 2.1 Amelia # (Auto) 0.6 Eos # (Auto) 0.1 Baso # (Auto) 0.0 WBC Differential Manual diff final Seg Neuts % (Manual) 79 H Band Neuts % (Manual) 9 H Lymphocytes % (Manual) 7 L Monocytes % (Manual) 1 Eosinophils % (Manual) 1 Metamyelocytes % (Man) 1 Myelocytes % (Man) 2 H Abs Neuts (Manual) 11.0 H Differential Comment . Platelet Estimate Normal Platelet Morphology Normal Sodium 140 Potassium 3.0 L Chloride 101 Carbon Dioxide 29.2 Anion Gap 10 BUN 11 Creatinine 0.77 Estimated GFR 77 L Random Glucose 72 L Calcium 8.3 L Magnesium Total Bilirubin 0.8 GGT AST 23 ALT 27 Alkaline Phosphatase 266 H Total Protein 5.8 L D Albumin 2.0 L Vancomycin Trough 29.5 H Random Vancomycin 37.2 01/06/18 05:39 WBC RBC Hgb Hct MCV MCH MCHC RDW Plt Count MPV Prelim Diff (Auto) Neut % (Auto) Lymph % (Auto) Amelia % (Auto) Eos % (Auto) Baso % (Auto) Neut # (Auto) Lymph # (Auto) Amelia # (Auto) Eos # (Auto) Baso # (Auto) WBC Differential Seg Neuts % (Manual) Band Neuts % (Manual) Lymphocytes % (Manual) Monocytes % (Manual) Eosinophils % (Manual) Metamyelocytes % (Man) Myelocytes % (Man) Abs Neuts (Manual) Differential Comment Platelet Estimate Platelet Morphology Sodium Potassium Chloride Carbon Dioxide Anion Gap BUN Creatinine Estimated GFR Random Glucose Calcium Magnesium 1.3 L Total Bilirubin GGT 250 H AST ALT Alkaline Phosphatase Total Protein Albumin Vancomycin Trough Random Vancomycin Microbiology 01/03/18 02:25 Blood - Peripheral Aerobic Blood Culture - Preliminary No growth in 3 days 01/03/18 02:25 Blood - Peripheral Anaerobic Blood Culture - Preliminary No growth in 3 days 01/03/18 02:20 Blood - Peripheral Aerobic Blood Culture - Preliminary No growth in 3 days 01/03/18 02:20 Blood - Peripheral Anaerobic Blood Culture - Preliminary No growth in 3 days 01/03/18 02:20 Wound - Abdominal Gram Stain - Final 01/03/18 02:20 Wound - Abdominal Wound Culture - Final S. aureus MRSA Clostridium species 01/03/18 06:50 Catheterized Urine Urine Culture - Final Staphylococcus epidermidis - Imaging Impressions Cholangiopancreatography MRI 01/05/18 00:00 CONCLUSION: 1. There is marked dilatation of the biliary tree with cholelithiasis as well as a stone in the cystic duct. 2. Intra-abdominal masses are seen as noted previously. - Procedures none Assessment and Plan - Assessment (1) Abdominal abscess Status: Acute (2) Suicidal ideation Code(s): R45.851 - Suicidal ideations Status: Acute (3) Altered mental status Code(s): R41.82 - Altered mental status, unspecified Status: Acute (4) Psychosis Code(s): F29 - Unspecified psychosis not due to a substance or known physiological condition Status: Acute (5) Acute UTI Code(s): N39.0 - Urinary tract infection, site not specified Status: Acute - Plan 57-year-old female admitted secondary to metabolic encephalopathy related to UTI with complaints of abdominal pain status post new colectomy secondary to diverticulitis with abscess. Altered mental status Psychosis Acute metabolic encephalopathy Resolved likely related to infection Treat infections as listed below Sepsis, multiple intra-abdominal abscesses Status post colectomy Abdominal pain Abnormal MRCP with marked dilatation of the biliary tree with cholelithiasis and stone in the cystic duct. No evidence of CBD or Mirrizzi syndrome per GI. Consult GS for open cholecystectomy postsurgical changes seen on CT exam Several fluid collections are seen in this postop situation This could represent abscess Mass also seen, uncertain if this is new Uncertain if abdominal pain represents new infections. Potential need for interventional radiology and drainage if new abscesses are present Wound care following Ct IV vanco, Zosyn and Micafungin cx with MRSA and clostridium ID following GI following [facility] has been contacted on 01/04/2018 and 01/05/2018, no beds available thus far. Plan for transfer under her general surgeon Dr. Herndon, once bed available. Respiratory Continue prednisone Continue as needed duo nebs GERD Continue Pantoprazole LE edema Also complains of discomfort likely related to electrolyte abnormalities. Aggressive replacement of potassium and magnesium and repeat BMP and magnesium in the morning. If persistent pain consider Neurontin Continue spironolactone and Lasix DVT prophylaxis SCDs Discharge Planning: will request CM assistance for transfer (3) Altered mental status Qualifiers: Altered mental status type: unspecified Qualified Code(s): R41.82 - Altered mental status, unspecified (4) Psychosis Qualifiers: Psychosis type: unspecified psychosis type Qualified Code(s): F29 - Unspecified psychosis not due to a substance or known physiological condition
[2018-01-06] MEDS: Magnesium Oxide 400 MG Tablet PO SCH ×2 (12:30→21:29)
--- NOTE | 2018-01-06 14:16 | P.PNGI ---
Subjective Interval history: Pt is resting in bed, having abd pain still, no nausea or vomiting or bleeding. <Manoj Rees - Last Filed: 01/18/18 18:59> Physical Exam Vital signs: Vital Signs 01/05/18 16:00 01/05/18 20:00 01/05/18 20:39 Temperature 98.1 F 98.4 F Pulse Rate 88 85 80 Respiratory Rate 19 19 14 Blood Pressure 105/74 103/71 Pulse Oximetry 97 95 01/06/18 00:00 01/06/18 01:22 01/06/18 08:00 Temperature 98.2 F 98.0 F Pulse Rate 80 103 H Respiratory Rate 20 18 17 Blood Pressure 107/67 109/73 Pulse Oximetry 98 95 01/06/18 08:34 01/06/18 12:00 Temperature 98.0 F Pulse Rate 93 H 89 Respiratory Rate 12 17 Blood Pressure 111/73 Pulse Oximetry 98 97 Intake & Output 01/05/18 01/06/18 01/06/18 18:59 06:59 18:59 Intake Total 2360 / 2360 2650 / 2650 50 / 50 Output Total 1000 / 1000 600 / 600 Balance 1360 / 1360 2050 / 2050 50 / 50 Weight 91.3 kg Intake: IV 1400 / 1400 1350 / 1350 50 / 50 D5W/1/2 NS Inj 1,000 ML @ 100 1000 / 1000 1000 / 1000 mls/hr IV.CONT .Q10H [facility] Rx#: [id number] Mycamine Inj 150 MG In NS Inj 100 / 100 100 ML @ 100 mls/hr IV.SIG Q24H [facility] Rx#:[id number] Zosyn 3.375 GM Premix 50 ML @ 50 / 50 100 / 100 50 / 50 100 mls/hr IV.SIG Q6H [facility] Rx#: [id number] Vancomycin Inj 1,000 MG In NS 250 / 250 Inj 250 ML @ 250 mls/hr IV.SIG Q8H [facility] Rx#:[id number] Oral 960 / 960 1300 / 1300 Output: Urine 1000 / 1000 600 / 600 Other: # Voids 4 Date of Last Bowel Movement 01/03/18 01/03/18 01/05/18 <Fátima Wright - Last Filed: 01/06/18 15:19> Vital signs: Vital Signs 01/05/18 16:00 01/05/18 20:00 01/05/18 20:39 Temperature 98.1 F 98.4 F Pulse Rate 88 85 80 Respiratory Rate 19 19 14 Blood Pressure 105/74 103/71 Pulse Oximetry 97 95 01/06/18 00:00 01/06/18 01:22 01/06/18 08:00 Temperature 98.2 F 98.0 F Pulse Rate 80 103 H Respiratory Rate 20 18 17 Blood Pressure 107/67 109/73 Pulse Oximetry 98 95 01/06/18 08:34 01/06/18 12:00 Temperature 98.0 F Pulse Rate 93 H 89 Respiratory Rate 12 17 Blood Pressure 111/73 Pulse Oximetry 98 97 Intake & Output 01/05/18 01/06/18 01/06/18 18:59 06:59 18:59 Intake Total 2360 / 2360 2650 / 2650 50 / 50 Output Total 1000 / 1000 600 / 600 Balance 1360 / 1360 2050 / 2050 50 / 50 Weight 91.3 kg Intake: IV 1400 / 1400 1350 / 1350 50 / 50 D5W/1/2 NS Inj 1,000 ML @ 100 1000 / 1000 1000 / 1000 mls/hr IV.CONT .Q10H [facility] Rx#: [id number] Mycamine Inj 150 MG In NS Inj 100 / 100 100 ML @ 100 mls/hr IV.SIG Q24H [facility] Rx#:[id number] Zosyn 3.375 GM Premix 50 ML @ 50 / 50 100 / 100 50 / 50 100 mls/hr IV.SIG Q6H [facility] Rx#: [id number] Vancomycin Inj 1,000 MG In NS 250 / 250 Inj 250 ML @ 250 mls/hr IV.SIG Q8H [facility] Rx#:[id number] Oral 960 / 960 1300 / 1300 Output: Urine 1000 / 1000 600 / 600 Other: # Voids 4 Date of Last Bowel Movement 01/03/18 01/03/18 01/05/18 - Constitutional no acute distress - Routine HEENT Exam Head: Present: normocephalic - Routine Respiratory Exam Present: CTA bilaterally - Routine Cardiovascular Exam Present: RRR - Routine Abdominal Exam Present: normoactive bowel sounds, tenderness, wound, ostomy Comments: Colostomy, Dressing mid abd - Routine Extremities Exam Present: edema - Routine Skin Exam Present: intact, dry - Routine Neurological Exam Present: alert <Amawi,Khawla - Last Filed: 01/18/18 18:59> Results - Labs CBC & Chem 7: 01/06/18 05:39 01/06/18 05:39 Laboratory Results - last 24 hr 01/05/18 01/06/18 01/06/18 20:20 05:39 05:39 WBC 12.1 H RBC 3.45 L Hgb 9.6 L Hct 29.5 L MCV 85.4 MCH 27.8 MCHC 32.5 RDW 17.6 H Plt Count 195 MPV 8.0 Prelim Diff (Auto) Slide review pending Neut % (Auto) 76.7 H Lymph % (Auto) 17.5 Warren % (Auto) 5.2 Eos % (Auto) 0.5 Baso % (Auto) 0.1 Neut # (Auto) 9.2 H Lymph # (Auto) 2.1 Warren # (Auto) 0.6 Eos # (Auto) 0.1 Baso # (Auto) 0.0 WBC Differential Manual diff final Seg Neuts % (Manual) 79 H Band Neuts % (Manual) 9 H Lymphocytes % (Manual) 7 L Monocytes % (Manual) 1 Eosinophils % (Manual) 1 Metamyelocytes % (Man) 1 Myelocytes % (Man) 2 H Abs Neuts (Manual) 11.0 H Differential Comment . Platelet Estimate Normal Platelet Morphology Normal Sodium 140 Potassium 3.0 L Chloride 101 Carbon Dioxide 29.2 Anion Gap 10 BUN 11 Creatinine 0.77 Estimated GFR 77 L Random Glucose 72 L Calcium 8.3 L Magnesium Total Bilirubin 0.8 GGT AST 23 ALT 27 Alkaline Phosphatase 266 H Total Protein 5.8 L D Albumin 2.0 L Vancomycin Trough 29.5 H Random Vancomycin 37.2 01/06/18 05:39 WBC RBC Hgb Hct MCV MCH MCHC RDW Plt Count MPV Prelim Diff (Auto) Neut % (Auto) Lymph % (Auto) Warren % (Auto) Eos % (Auto) Baso % (Auto) Neut # (Auto) Lymph # (Auto) Warren # (Auto) Eos # (Auto) Baso # (Auto) WBC Differential Seg Neuts % (Manual) Band Neuts % (Manual) Lymphocytes % (Manual) Monocytes % (Manual) Eosinophils % (Manual) Metamyelocytes % (Man) Myelocytes % (Man) Abs Neuts (Manual) Differential Comment Platelet Estimate Platelet Morphology Sodium Potassium Chloride Carbon Dioxide Anion Gap BUN Creatinine Estimated GFR Random Glucose Calcium Magnesium 1.3 L Total Bilirubin GGT 250 H AST ALT Alkaline Phosphatase Total Protein Albumin Vancomycin Trough Random Vancomycin Microbiology 01/03/18 02:25 Blood - Peripheral Aerobic Blood Culture - Preliminary No growth in 3 days 01/03/18 02:25 Blood - Peripheral Anaerobic Blood Culture - Preliminary No growth in 3 days 01/03/18 02:20 Blood - Peripheral Aerobic Blood Culture - Preliminary No growth in 3 days 01/03/18 02:20 Blood - Peripheral Anaerobic Blood Culture - Preliminary No growth in 3 days 01/03/18 02:20 Wound - Abdominal Gram Stain - Final 01/03/18 02:20 Wound - Abdominal Wound Culture - Final S. aureus MRSA Clostridium species - Imaging Impressions Cholangiopancreatography MRI 01/05/18 00:00 CONCLUSION: 1. There is marked dilatation of the biliary tree with cholelithiasis as well as a stone in the cystic duct. 2. Intra-abdominal masses are seen as noted previously. <Fátima Wright - Last Filed: 01/06/18 15:19> - Labs CBC & Chem 7: 01/10/18 05:52 01/10/18 09:49 Laboratory Results - last 24 hr 01/05/18 01/06/18 01/06/18 20:20 05:39 05:39 WBC 12.1 H RBC 3.45 L Hgb 9.6 L Hct 29.5 L MCV 85.4 MCH 27.8 MCHC 32.5 RDW 17.6 H Plt Count 195 MPV 8.0 Prelim Diff (Auto) Slide review pending Neut % (Auto) 76.7 H Lymph % (Auto) 17.5 Warren % (Auto) 5.2 Eos % (Auto) 0.5 Baso % (Auto) 0.1 Neut # (Auto) 9.2 H Lymph # (Auto) 2.1 Warren # (Auto) 0.6 Eos # (Auto) 0.1 Baso # (Auto) 0.0 WBC Differential Manual diff final Seg Neuts % (Manual) 79 H Band Neuts % (Manual) 9 H Lymphocytes % (Manual) 7 L Monocytes % (Manual) 1 Eosinophils % (Manual) 1 Metamyelocytes % (Man) 1 Myelocytes % (Man) 2 H Abs Neuts (Manual) 11.0 H Differential Comment . Platelet Estimate Normal Platelet Morphology Normal Sodium 140 Potassium 3.0 L Chloride 101 Carbon Dioxide 29.2 Anion Gap 10 BUN 11 Creatinine 0.77 Estimated GFR 77 L Random Glucose 72 L Calcium 8.3 L Magnesium Total Bilirubin 0.8 GGT AST 23 ALT 27 Alkaline Phosphatase 266 H Total Protein 5.8 L D Albumin 2.0 L Vancomycin Trough 29.5 H Random Vancomycin 37.2 01/06/18 05:39 WBC RBC Hgb Hct MCV MCH MCHC RDW Plt Count MPV Prelim Diff (Auto) Neut % (Auto) Lymph % (Auto) Warren % (Auto) Eos % (Auto) Baso % (Auto) Neut # (Auto) Lymph # (Auto) Warren # (Auto) Eos # (Auto) Baso # (Auto) WBC Differential Seg Neuts % (Manual) Band Neuts % (Manual) Lymphocytes % (Manual) Monocytes % (Manual) Eosinophils % (Manual) Metamyelocytes % (Man) Myelocytes % (Man) Abs Neuts (Manual) Differential Comment Platelet Estimate Platelet Morphology Sodium Potassium Chloride Carbon Dioxide Anion Gap BUN Creatinine Estimated GFR Random Glucose Calcium Magnesium 1.3 L Total Bilirubin GGT 250 H AST ALT Alkaline Phosphatase Total Protein Albumin Vancomycin Trough Random Vancomycin Microbiology 01/03/18 02:25 Blood - Peripheral Aerobic Blood Culture - Preliminary No growth in 3 days 01/03/18 02:25 Blood - Peripheral Anaerobic Blood Culture - Preliminary No growth in 3 days 01/03/18 02:20 Blood - Peripheral Aerobic Blood Culture - Preliminary No growth in 3 days 01/03/18 02:20 Blood - Peripheral Anaerobic Blood Culture - Preliminary No growth in 3 days 01/03/18 02:20 Wound - Abdominal Gram Stain - Final 01/03/18 02:20 Wound - Abdominal Wound Culture - Final S. aureus MRSA Clostridium species - Imaging Impressions Cholangiopancreatography MRI 01/05/18 00:00 CONCLUSION: 1. There is marked dilatation of the biliary tree with cholelithiasis as well as a stone in the cystic duct. 2. Intra-abdominal masses are seen as noted previously. - Procedures none <Manoj Rees - Last Filed: 01/18/18 18:59> Assessment and Plan (1) History of diverticulitis Status: Acute Code(s): Z87.19 - Personal history of other diseases of the digestive system (2) Postoperative abdominal pain Status: Acute Code(s): R10.9 - Unspecified abdominal pain; G89.18 - Other acute postprocedural pain (3) Abdominal abscess Status: Acute - Attending Attestation For Surgical evaluation, will follow LFT's and CBC daily. Further recommendations to follow. <Fátima Wright - Last Filed: 01/06/18 15:19> (1) History of diverticulitis Status: Acute Code(s): Z87.19 - Personal history of other diseases of the digestive system (2) Postoperative abdominal pain Status: Acute Code(s): R10.9 - Unspecified abdominal pain; G89.18 - Other acute postprocedural pain (3) Abdominal abscess Status: Acute - Plan 57-year-old overweight female who came into the hospital on 01/03/2018 with diffuse uncontrolled abdominal pain, pain scale 10 out of 10 which has waxed and waned over the past month but has worsened over the past week. Patient continues to be uncontrolled with her pain and is a poor historian possibly secondary to pain as well as some acute psychosis according to the record. History of diverticulitis due to complications had colostomy and laparotomy with Dr. SALAZAR, at the [facility] in [place]. Patient has open abdominal wound as well as colostomy but no obvious bleeding noted. Labs, elevated bilirubin at 1.3 but is now normalized at 0.7. Patient also had AST of 41 ALT of 32 which is now normalized to AST 24 ALT 26. Patient has had a drop in her hemoglobin from admission 10.5 now 8.7 and a 24 hour. nausea and decreased appetite but has had no obvious vomiting. CT scan did show cholelithiasis and dilated biliary tree but also noted was multiple abscesses but no obstruction noted. Gastroenterology has been consulted to assist with patient's current symptoms and plan of care. Initially ordered on admission was ordered to assist in evaluation of abdominal abscesses seen on CT scan postop. patient was transitioned here from [facility] for her uncontrolled abdominal pain and further medical care. Unknown GI history for EGD colonoscopy or family history of colon cancer due to patient's anxiety/possible acute psychosis. IR was initially ordered to evaluate further abdominal abscess, spoke with Dr. Nieto, about plan of care from a GI perspective versus postsurgical complications and possible evaluation for transfer back to original surgeon. Also discussed with Dr. Fox who is the attending. He has initiated request for possible transition back to Dr. SALAZAR service. CT scan showed cholelithiasis as well as dilated biliary tree, findings could be related to postop complications abscesses versus gallstones. Will consider MRCP if patient can tolerate. 01/05/2018 patient still complains of some right upper quadrant discomfort does appear to be gradually more comfortable than on admission with pain management. MRCP back this p.m. which showed marked dilatation of the biliary tree with cholelithiasis as well as a stone in the cystic duct. Intra-abdominal masses also noted as previous. continue hydration and pain management, labs. Still may be able to transfer back to her original facility, pending for now 01/06/18- Pt still with abd pain, ALP today is rising to 266, rest of labs wnl, ? Mirizzi syndrome No evidence of cbd stones on imaging but Mrcp showed marked dilatation of the biliary tree with cholelithiasis as well as a stone in the cystic duct. Plan KIM Pain management per attending ID on the case consult GS might need ERCP Monitor labs, Zosyn, steroids, PPI Patient was seen per myself and Dr. Wright, note was written on his behalf <Manoj Rees - Last Filed: 01/18/18 18:59>
--- NOTE | 2018-01-06 15:24 | P.CONGS ---
[facility] Gen Surgery Consult Note Consult date: 01/06/18 Reason for consult: abdominal pain Requesting physician: Manoj Rees Narrative: This is a 57 year old female with a complicated past medical history of perforated diverticulitis with exploratory laparotomy and colostomy at [facility] ([place], [place]) approximally 5 weeks ago, major depressive disorder, frequent UTIs and GERD. The patient was in rehab and brought to [place] for alerted mental status and acute psychosis about one week ago. She was found to have a wound dehiscence which has been treated with local wound care. On admission, a CT abdomen/pelvis was obtained on admission which shows biliary dilatation and several intra-abdominal abscesses. The patient has been scheduled to be transferred to [facility] ([place], [place]) for several days but no bed has been available. An MRCP was obtained which shows marked dilatation of the biliary tree with cholelithiasis as well as a stone in the cystic duct. She dose have an elevated WBC of 12.6. Her total bilirubin is 1.3; AST 23; ALT 27; alkaline phosphatase 226. A General Surgery consultation has been requested. Review of Systems All other systems reviewed negative except as stated in HPI [facility] - History History Provided By: Patient - Medical History Medical History: Medical History (Last Updated 01/06/18 @ 15:10 by AILYN Randolph) Abdominal abscess Anxiety Chronic pain Colostomy in place Colostomy in place Colostomy present on admission Constipation Diverticulitis Edema GERD (gastroesophageal reflux disease) Hypertension Hypokalemia Major depressive disorder Sepsis Shortness of breath UTI (urinary tract infection) - Surgical History Surgical History: Surgical History (Last Reviewed 01/06/18 @ 15:09 by AILYN Randolph) History of laparotomy - Tobacco History Second Hand Smoke Exposure: No Tobacco Use In Past 30 Days: No Smoking Status: Former smoker Tobacco Type: Cigarettes - Alcohol History How Often Do You Have a Drink Containing Alcohol: Never - Substance Use History Substance History: No History of Abuse - Travel History Recent Travel in the [place] Within the Last 8 Weeks: No Recent Travel Out of the Country Within the Last 8 Weeks: No - Immunization History Tetanus Immunization: <5 Years Hx Influenza Vaccine This Season: Yes Medications and Allergies Allergies Allergy/AdvReac Type Severity Reaction Status Date / Time No Known Allergies Allergy Verified 01/03/18 07:51 Home Medications Medication Instructions Recorded Confirmed Type alprazolam 0.25 mg PO Q8H PRN 01/03/18 01/03/18 History bisacodyl 5 mg PO DAILY PRN 01/03/18 01/03/18 History budesonide 0.5 mg INHALATION Q12H 01/03/18 01/03/18 History dextromethorphan-guaifenesin 10 ml PO Q4H PRN 01/03/18 01/03/18 History [Rocio-Tussin DM] furosemide 40 mg PO DAILY 01/03/18 01/03/18 History ipratropium-albuterol 3 ml INHALATION Q6-8H PRN 01/03/18 01/03/18 History pantoprazole 40 mg PO DAILY 01/03/18 01/03/18 History prednisone 20 mg PO DAILY 01/03/18 01/03/18 History spironolactone 25 mg PO BID 01/03/18 01/03/18 History trazodone 200 mg PO HS 01/03/18 01/03/18 History Active Medications: Active Medications Acetaminophen (Tylenol) 650 mg PO Q4H PRN PRN Reason: Temp > 100.4 Albuterol (Duoneb Neb (Prn)) 1 ampul NEB Q6HR NEB PRN PRN Reason: Shortness Of Breath Or Wheezin Alprazolam (Xanax) 0.25 mg PO Q8H PRN PRN Reason: ANXIETY Last Admin: 01/06/18 05:05 Dose: 0.25 mg Bisacodyl (Dulcolax Ec) 5 mg PO DAILY PRN PRN Reason: Constipation Last Admin: 01/04/18 20:22 Dose: 5 mg Budesonide (Pulmocort Respule Neb) 0.5 mg NEB Q12HR NEB [facility] Last Admin: 01/06/18 08:32 Dose: 0.5 mg Furosemide (Lasix) 40 mg PO DAILY [facility] Last Admin: 01/06/18 09:05 Dose: 40 mg Dextrose/Sodium Chloride (D5w/1/2 Ns Inj) 1,000 mls @ 100 mls/hr IV.CONT .Q10H [facility] Last Admin: 01/06/18 12:49 Dose: 100 mls/hr Piperacillin/Tazobactam/Dextrose (Zosyn 3.375 Gm Premix) 50 mls @ 100 mls/hr IV.SIG Q6H [facility] Last Admin: 01/06/18 12:50 Dose: 100 mls/hr Micafungin Sodium 150 mg/ (Sodium Chloride) 100 mls @ 100 mls/hr IV.SIG Q24H [facility] Last Infusion: 01/05/18 18:58 Dose: Infused Vancomycin HCl 1,000 mg/ (Sodium Chloride) 250 mls @ 250 mls/hr IV.SIG Q8H [facility] Last Infusion: 01/05/18 21:27 Dose: Infused Magnesium Oxide (Mag-Ox) 400 mg PO BID [facility] Morphine Sulfate (Morphine Inj) 4 mg IV.PUSH Q4H PRN PRN Reason: Pain 7 to 10 Last Admin: 01/06/18 12:51 Dose: 4 mg Morphine Sulfate (Morphine Inj) 2 mg IV.PUSH Q4H PRN PRN Reason: Pain 3 to 6 Ondansetron HCl (Zofran Inj) 4 mg IV.PUSH Q6H PRN PRN Reason: NAUSEA OR VOMITING Pantoprazole Sodium (Protonix) 40 mg PO DAILY [facility] Last Admin: 01/06/18 09:05 Dose: 40 mg Pharmacy Profile Note (Vancomycin Consult Pharmacy) 1 each OTHER UNSCH PRN PRN Reason: Pharmacy to dose Potassium Chloride (K-Dur) 40 meq PO BID [facility] Prednisone (Deltasone) 20 mg PO DAILY [facility] Last Admin: 01/06/18 10:31 Dose: 20 mg Senna/Docusate Sodium (Cristy-Colace) 1 tab PO BID [facility] Last Admin: 01/06/18 09:05 Dose: 1 tab Spironolactone (Aldactone) 25 mg PO BID [facility] Last Admin: 01/06/18 09:05 Dose: 25 mg Trazodone HCl (Desyrel) 200 mg PO [facility] Last Admin: 01/05/18 20:19 Dose: 200 mg Exam Vital signs: Vital Signs 01/05/18 16:00 01/05/18 20:00 01/05/18 20:39 Temperature 98.1 F 98.4 F Pulse Rate 88 85 80 Respiratory Rate 19 19 14 Blood Pressure 105/74 103/71 Pulse Oximetry 97 95 01/06/18 00:00 01/06/18 01:22 01/06/18 08:00 Temperature 98.2 F 98.0 F Pulse Rate 80 103 H Respiratory Rate 20 18 17 Blood Pressure 107/67 109/73 Pulse Oximetry 98 95 01/06/18 08:34 01/06/18 12:00 Temperature 98.0 F Pulse Rate 93 H 89 Respiratory Rate 12 17 Blood Pressure 111/73 Pulse Oximetry 98 97 Intake & Output 01/05/18 01/06/18 01/06/18 18:59 06:59 18:59 Intake Total 2360 / 2360 2650 / 2650 50 / 50 Output Total 1000 / 1000 600 / 600 Balance 1360 / 1360 2050 / 2050 50 / 50 Weight 91.3 kg Intake: IV 1400 / 1400 1350 / 1350 50 / 50 D5W/1/2 NS Inj 1,000 ML @ 100 1000 / 1000 1000 / 1000 mls/hr IV.CONT .Q10H [facility] Rx#: [id number] Mycamine Inj 150 MG In NS Inj 100 / 100 100 ML @ 100 mls/hr IV.SIG Q24H [facility] Rx#:[id number] Zosyn 3.375 GM Premix 50 ML @ 50 / 50 100 / 100 50 / 50 100 mls/hr IV.SIG Q6H [facility] Rx#: [id number] Vancomycin Inj 1,000 MG In NS 250 / 250 Inj 250 ML @ 250 mls/hr IV.SIG Q8H [facility] Rx#:[id number] Oral 960 / 960 1300 / 1300 Output: Urine 1000 / 1000 600 / 600 Other: # Voids 4 Date of Last Bowel Movement 01/03/18 01/03/18 01/05/18 Narrative: GENERAL: Very disheveled 57 year old female brushing hair resting in bed in no acute distress. SKIN: Several bruises on BUE and BLE. HEAD: Atraumatic. Normocephalic. EYES: Pupils equal and round. No scleral icterus. No injection or drainage. ENT: No nasal bleeding or discharge. Mucous membranes pink and moist. NECK: Trachea midline. CARDIOVASCULAR: Regular rate and rhythm. RESPIRATORY: No accessory muscle use. Clear to auscultation. Breath sounds equal bilaterally. GASTROINTESTINAL: Abdomen large midline incision that with dehiscence---fascial sutures exposed; areas of purulent drainage; colostomy in place with minimal stool in bag. RUQ tenderness with palpation. MUSCULOSKELETAL: Extremities without clubbing, cyanosis, or edema. No obvious deformities. NEUROLOGICAL: Awake and alert. No obvious cranial nerve deficits. Motor grossly within normal limits. Five out of 5 muscle strength in the arms and legs. Normal speech. PSYCHIATRIC: Appropriate mood and affect. Results - Labs 01/10/18 05:52 01/10/18 09:49 Laboratory Results WBC 12.1 th/mm3 (4.0-11.0) H 01/06/18 05:39 RBC 3.45 mil/mm3 (4.00-5.30) L 01/06/18 05:39 Hgb 9.6 gm/dL (11.6-15.3) L 01/06/18 05:39 Hct 29.5 % (35.0-46.0) L 01/06/18 05:39 MCV 85.4 fL (80.0-100.0) 01/06/18 05:39 MCH 27.8 pg (27.0-34.0) 01/06/18 05:39 MCHC 32.5 % (32.0-36.0) 01/06/18 05:39 RDW 17.6 % (11.6-17.2) H 01/06/18 05:39 Plt Count 195 th/mm3 (150-450) 01/06/18 05:39 MPV 8.0 fL (7.0-11.0) 01/06/18 05:39 Prelim Diff (Auto) Slide review pending 01/06/18 05:39 Neut % (Auto) 76.7 % (16.0-70.0) H 01/06/18 05:39 Lymph % (Auto) 17.5 % (9.0-44.0) 01/06/18 05:39 [place] % (Auto) 5.2 % (0.0-8.0) 01/06/18 05:39 Eos % (Auto) 0.5 % (0.0-4.0) 01/06/18 05:39 Baso % (Auto) 0.1 % (0.0-2.0) 01/06/18 05:39 Neut # (Auto) 9.2 th/mm3 (1.8-7.7) H 01/06/18 05:39 Lymph # (Auto) 2.1 th/mm3 (1.0-4.8) 01/06/18 05:39 [place] # (Auto) 0.6 th/mm3 (0.0-0.9) 01/06/18 05:39 Eos # (Auto) 0.1 th/mm3 (0.0-0.4) 01/06/18 05:39 Baso # (Auto) 0.0 th/mm3 (0.0-0.2) 01/06/18 05:39 WBC Differential Manual diff final 01/06/18 05:39 Diff Scan Auto diff confirmed 01/04/18 04:53 Seg Neuts % (Manual) 79 % (16-70) H 01/06/18 05:39 Band Neuts % (Manual) 9 % (0-6) H 01/06/18 05:39 Lymphocytes % (Manual) 7 % (9-44) L 01/06/18 05:39 Monocytes % (Manual) 1 % (0-8) 01/06/18 05:39 Eosinophils % (Manual) 1 % (0-4) 01/06/18 05:39 Metamyelocytes % (Man) 1 % (0-1) 01/06/18 05:39 Myelocytes % (Man) 2 % (0-0) H 01/06/18 05:39 Abs Neuts (Manual) 11.0 th/mm3 (1.8-7.7) H 01/06/18 05:39 Differential Comment . 01/06/18 05:39 Platelet Estimate Normal (Normal) 01/06/18 05:39 Platelet Morphology Normal (Normal) 01/06/18 05:39 Sodium 140 meq/L (136-145) 01/06/18 05:39 Potassium 3.0 meq/L (3.5-5.1) L 01/06/18 05:39 Chloride 101 meq/L (98-107) 01/06/18 05:39 Carbon Dioxide 29.2 meq/L (21.0-32.0) 01/06/18 05:39 Anion Gap 10 meq/L (5-15) 01/06/18 05:39 BUN 11 mg/dL (7-18) 01/06/18 05:39 Creatinine 0.77 mg/dL (0.50-1.00) 01/06/18 05:39 Estimated GFR 77 mL/min (>89) L 01/06/18 05:39 POC Glucose 100 mg/dl (68-110) 01/04/18 09:46 Random Glucose 72 mg/dL (74-106) L 01/06/18 05:39 Lactic Acid 1.9 mmol/L (0.4-2.0) 01/03/18 02:20 Calcium 8.3 mg/dL (8.5-10.1) L 01/06/18 05:39 Magnesium 1.3 mg/dL (1.5-2.5) L 01/06/18 05:39 Total Bilirubin 0.8 mg/dL (0.2-1.0) 01/06/18 05:39 GGT 250 U/L (5-55) H 01/06/18 05:39 AST 23 U/L (15-37) 01/06/18 05:39 ALT 27 U/L (10-53) 01/06/18 05:39 Alkaline Phosphatase 266 U/L (45-117) H 01/06/18 05:39 Troponin I Less than 0.02 ng/mL (0.02-0.05) L 01/03/18 14:15 Total Protein 5.8 g/dL (6.4-8.2) L D 01/06/18 05:39 Albumin 2.0 g/dL (3.4-5.0) L 01/06/18 05:39 TSH 2.560 uIU/mL (0.358-3.740) 01/03/18 02:20 Urine Color Ladan (Yellw/Straw) 01/03/18 06:50 Urine Clarity Hazy (Clear) H 01/03/18 06:50 Urine pH 5.0 (5.0-8.5) 01/03/18 06:50 Ur Specific Sebastian 1.021 (1.002-1.035) 01/03/18 06:50 Urine Protein 100 mg/dL (Neg-Trace) H 01/03/18 06:50 Urine Glucose (UA) Negative mg/dL (Negative) 01/03/18 06:50 Urine Ketones 20 mg/dL (Negative) 01/03/18 06:50 Urine Occult Blood Small (Negative) H 01/03/18 06:50 Urine Nitrate Negative (Negative) 01/03/18 06:50 Urine Bilirubin Negative (Negative) 01/03/18 06:50 Urine Urobilinogen 4 or greater mg/dL (Less than 2) 01/03/18 06:50 Ur Leukocyte Esterase Negative (Negative) 01/03/18 06:50 Urine RBC 2 /hpf (0-3) 01/03/18 06:50 Urine WBC 6 /hpf (0-5) H 01/03/18 06:50 Ur Squamous Epith Cells 1 /hpf (0-5) 01/03/18 06:50 Urine Bacteria Many /hpf (None) H 01/03/18 06:50 Hyaline Casts 3 /lpf (0-3) 01/03/18 06:50 Urine Mucus Few /lpf (Occasional) H 01/03/18 06:50 Micro UA Comment Cath-culture ind 01/03/18 06:50 Ur Microscopic Review Not Reportable 01/03/18 06:50 Urine Culture Comments Cath-cult indicated 01/03/18 06:50 Vancomycin Trough 29.5 mcg/mL (5.0-10.0) H 01/05/18 20:20 Random Vancomycin 37.2 Comment 01/06/18 05:39 Salicylates Less than 1.7 mg/dL (2.8-20.0) L 01/03/18 02:20 Urine Opiates Screen Neg (Neg) 01/03/18 06:50 Acetaminophen Less than 2.0 mcg/mL (10.0-30.0) L 01/03/18 02:20 Ur Barbiturates Screen Neg (Neg) 01/03/18 06:50 Ur Amphetamines Screen Neg (Neg) 01/03/18 06:50 U Benzodiazepines Scrn Pos (Neg) H 01/03/18 06:50 Urine Cocaine Screen Neg (Neg) 01/03/18 06:50 U Cannabinoids Screen Neg (Neg) 01/03/18 06:50 Serum Alcohol Less than 3 mg/dL (0-5) 01/03/18 02:20 Impressions Chest X-Ray 01/03/18 00:00 CONCLUSION: Left basilar atelectasis. Head CT 01/03/18 05:23 CONCLUSION: 1. Negative CT Head non contrast. . Abdomen/Pelvis CT 01/03/18 05:24 Bilateral breast implants are noted. There is left lower lobe atelectasis with air bronchogram formation. Trace pericardial fluid. Cholelithiasis is noted. There is diffuse biliary ductal dilatation involving intrahepatic, and extrahepatic biliary tree, common pelvic measuring up to 2.1 cm. It tapers as it approaches the ampulla. Kidneys, adrenals, spleen, pancreas unremarkable. Urinary bladder contained a small locule of air. The uterus is unremarkable. Distal colon is decompressed, and there is a left lower quadrant. There are several hypodense masses seen within the upper abdomen including just lateral to the descending portion of the duodenum, anterior to the pancreas. For example on the right upper quadrant on image 29 a 9 x 5 cm collection is present which is contiguous with a left upper quadrant mass measuring 7.1 x 5.4 cm in size. Similar appearing hypodense mass is seen just superior to the appendix in the right mid abdomen on image 42. There is also a crescentic rim- enhancing collection in the left paracolic region with adjacent surgical clips, and this collection contains air and fluid on axial image 36 this measures 6 x 1.8 cm in AP transverse dimension. There are no signs of bowel obstruction. Diffuse atherosclerotic calcification of the aorta and iliac vessels are noted. Review of bone windows demonstrate degenerative changes of the spine. There are post surgical changes to the anterior abdominal wall with subcutaneous air along the left lateral subcutaneous tissues just above the hip, and a small focus of subcutaneous air and fluid measuring 1.9 x 1.7 cm in AP transverse dimension on image 36 at the midline. CONCLUSION: 1. Extensive postsurgical changes are seen to the anterior abdominal wall, and left sided colostomy identified. 2. Cholelithiasis, and dilatation of the biliary tree is noted. 3. Low density mass-like foci are seen throughout the mid to upper abdomen as described above which has an appearance of masses versus focal fluid collections , and the possibility of carcinomatosis should be entertained. 4. There is a crescentic rim-enhancing fluid collection containing air in the left midabdomen paracolic region which would be most characteristic of an abscess. Cholangiopancreatography MRI 01/05/18 00:00 CONCLUSION: 1. There is marked dilatation of the biliary tree with cholelithiasis as well as a stone in the cystic duct. 2. Intra-abdominal masses are seen as noted previously. - Imaging CT scan - abdomen: image reviewed Additional studies: MRCP Assessment and Plan - Assessment (1) Cholecystitis Code(s): K81.9 - Cholecystitis, unspecified Status: Acute Plan: 57 year old female s/p exploratory laparotomy with colostomy for perforated diverticulitis about 5 weeks ago with wound dehiscence; now with concern for cholecystitis -Discussed with GI--concern for CBD obstruction ---may need ERCP -Monitor labs -Patient is not a candidate for surgery at this time -Recommend transfer back to [facility] to original Surgeon [facility]---discussed with Dr. Biggs -Continue Wound Care -Would only place cholecystostomy tube if patient developed septic cholecystitis - Plan Discussed Condition With: Dr. Lisa Camp - Attending Attestation I CERTIFY AND ATTEST THAT I EXAMINED THE PATIENT IN THEIR ROOM. AILYN DOCUMENTED OUR VISIT AN ENTERED ORDERS IN THE EMR UNDER MY DIRECT SUPERVISION.. CARE PLAN REVIEWED WITH PATIENT AND STAFF. AMI PAN MD FACS
[2018-01-06] MEDS: Micafungin Inj 150 MG in Sodium Chlor 0.9% Inj 100 ML IV.SIG SCH (17:02)
[2018-01-06] MEDS: traZODone 100 MG Tablet PO SCH (21:28)
[2018-01-07] MEDS: Piperacil/Tazo 3.375 GM Premix 50 ML IV.SIG SCH ×4 (00:10→18:12)
[2018-01-07] MEDS: Morphine Inj 4 MG/ML Vial IV.PUSH PRN ×5 (02:05→21:17)
[2018-01-07] MEDS: Dextrose 5%/NaCl 0.45% Inj 1,000 ML IV.CONT SCH ×2 (05:31→11:57)
[2018-01-07 06:02] LABS: Calcium 8.4 mg/dL (8.5-10.1); Carbon Dioxide 31.3 meq/L (21.0-32.0); Magnesium 1.2 mg/dL (1.5-2.5); Vancomycin,Random 21.6 Comment
[2018-01-07 06:13] LABS: Potassium 2.9 meq/L (3.5-5.1)
[2018-01-07] MEDS ORDERED: Potassium Chloride 25 MEQ Effervescent Tablet PO ONE (06:47)
[2018-01-07] MEDS ORDERED: Potassium Chlor 20 mEq Premix 20 MEQ/100 ML PIGGYBACK IV.SIG ONE (07:15)
[2018-01-07] MEDS: ALPRAZolam 0.25 MG Tablet PO PRN ×2 (07:33→18:12)
[2018-01-07] MEDS: Mag Sulf 1 gm/100 ml Premix 100 ML IV.SIG SCH ×2 (07:34→08:47)
[2018-01-07] MEDS: Magnesium Oxide 400 MG Tablet PO SCH ×2 (08:45→21:16)
[2018-01-07] MEDS: predniSONE 20 MG Tablet PO SCH (08:46)
[2018-01-07] MEDS: Furosemide 40 MG Tablet PO SCH (08:46)
[2018-01-07] MEDS: Senna/Docusate Sodium 8.6/50 MG Tablet PO SCH ×2 (08:46→21:17)
[2018-01-07] MEDS: Spironolactone 25 MG Tablet PO SCH ×2 (08:46→21:17)
--- NOTE | 2018-01-07 12:50 | P.PN ---
Subjective Interval history: Follow-up abdominal abscesses. Complains of pain over surgical site but also has tenderness in the right upper quadrant. Remains n.p.o. Discussed with GI who will perform ERCP. Discussed with IR, will proceed with drainage if there is surgical backup. Discussed with general surgery, recommended transfer to original surgeon. Would not perform surgical intervention unless emergent. Discussed with Dr. Mata and transfer center Physical Exam Vital signs: Vital Signs 01/06/18 16:00 01/06/18 19:55 01/06/18 20:00 Temperature 98.3 F 97.7 F Pulse Rate 86 97 H 97 H Respiratory Rate 17 16 18 Blood Pressure 103/66 121/84 Pulse Oximetry 99 99 99 01/07/18 00:00 01/07/18 07:46 Temperature 97.3 F L Pulse Rate 83 97 H Respiratory Rate 16 Blood Pressure 119/75 Pulse Oximetry 98 99 Intake & Output 01/06/18 01/07/18 01/07/18 18:59 06:59 18:59 Intake Total 2210 / 2210 1050 / 1050 250 / 250 Balance 2210 / 2210 1050 / 1050 250 / 250 Weight 77.9 kg Intake: IV 1250 / 1250 1050 / 1050 250 / 250 D5W/1/2 NS Inj 1,000 ML @ 100 1000 / 1000 1000 / 1000 mls/hr IV.CONT .Q10H [facility] Rx#: [id number] Magnesium Sulfate 1 gm/D5W 100 200 / 200 ml Premix 100 ML @ 100 mls/hr IV.SIG Q1H [facility] Rx#:[id number] Mycamine Inj 150 MG In NS Inj 100 / 100 100 ML @ 100 mls/hr IV.SIG Q24H [facility] Rx#:[id number] Zosyn 3.375 GM Premix 50 ML @ 150 / 150 50 / 50 50 / 50 100 mls/hr IV.SIG Q6H [facility] Rx#: [id number] Oral 960 / 960 Other: # Voids 4 Date of Last Bowel Movement 01/05/18 01/05/18 Narrative: Alert and awake Abd: colostomy in place; midline incision with packing in place. Tender right upper quadrant Results - Labs CBC & Chem 7: 01/06/18 05:39 01/07/18 04:45 Laboratory Results - last 24 hr 01/07/18 01/07/18 04:45 12:15 Sodium 137 Potassium 2.9 L* Chloride 96 L Carbon Dioxide 31.3 Anion Gap 10 BUN 10 Creatinine 0.75 Estimated GFR 79 L POC Glucose 143 H Random Glucose 91 Calcium 8.4 L Magnesium 1.2 L Random Vancomycin 21.6 Microbiology 01/03/18 02:25 Blood - Peripheral Aerobic Blood Culture - Preliminary No growth in 4 days 01/03/18 02:25 Blood - Peripheral Anaerobic Blood Culture - Preliminary No growth in 4 days 01/03/18 02:20 Blood - Peripheral Aerobic Blood Culture - Preliminary No growth in 4 days 01/03/18 02:20 Blood - Peripheral Anaerobic Blood Culture - Preliminary No growth in 4 days 01/03/18 02:20 Wound - Abdominal Gram Stain - Final 01/03/18 02:20 Wound - Abdominal Wound Culture - Final S. aureus MRSA Clostridium species - Imaging ITS Impressions Chest X-Ray 01/03/18 00:00 CONCLUSION: Left basilar atelectasis. Head CT 01/03/18 05:23 CONCLUSION: 1. Negative CT Head non contrast. . Abdomen/Pelvis CT 01/03/18 05:24 Bilateral breast implants are noted. There is left lower lobe atelectasis with air bronchogram formation. Trace pericardial fluid. Cholelithiasis is noted. There is diffuse biliary ductal dilatation involving intrahepatic, and extrahepatic biliary tree, common pelvic measuring up to 2.1 cm. It tapers as it approaches the ampulla. Kidneys, adrenals, spleen, pancreas unremarkable. Urinary bladder contained a small locule of air. The uterus is unremarkable. Distal colon is decompressed, and there is a left lower quadrant. There are several hypodense masses seen within the upper abdomen including just lateral to the descending portion of the duodenum, anterior to the pancreas. For example on the right upper quadrant on image 29 a 9 x 5 cm collection is present which is contiguous with a left upper quadrant mass measuring 7.1 x 5.4 cm in size. Similar appearing hypodense mass is seen just superior to the appendix in the right mid abdomen on image 42. There is also a crescentic rim- enhancing collection in the left paracolic region with adjacent surgical clips, and this collection contains air and fluid on axial image 36 this measures 6 x 1.8 cm in AP transverse dimension. There are no signs of bowel obstruction. Diffuse atherosclerotic calcification of the aorta and iliac vessels are noted. Review of bone windows demonstrate degenerative changes of the spine. There are post surgical changes to the anterior abdominal wall with subcutaneous air along the left lateral subcutaneous tissues just above the hip, and a small focus of subcutaneous air and fluid measuring 1.9 x 1.7 cm in AP transverse dimension on image 36 at the midline. CONCLUSION: 1. Extensive postsurgical changes are seen to the anterior abdominal wall, and left sided colostomy identified. 2. Cholelithiasis, and dilatation of the biliary tree is noted. 3. Low density mass-like foci are seen throughout the mid to upper abdomen as described above which has an appearance of masses versus focal fluid collections , and the possibility of carcinomatosis should be entertained. 4. There is a crescentic rim-enhancing fluid collection containing air in the left midabdomen paracolic region which would be most characteristic of an abscess. Cholangiopancreatography MRI 01/05/18 00:00 CONCLUSION: 1. There is marked dilatation of the biliary tree with cholelithiasis as well as a stone in the cystic duct. 2. Intra-abdominal masses are seen as noted previously. - Procedures none Assessment and Plan - Assessment (1) Abdominal abscess Status: Acute (2) Suicidal ideation Code(s): R45.851 - Suicidal ideations Status: Acute (3) Altered mental status Code(s): R41.82 - Altered mental status, unspecified Status: Acute (4) Psychosis Code(s): F29 - Unspecified psychosis not due to a substance or known physiological condition Status: Acute (5) Acute UTI Code(s): N39.0 - Urinary tract infection, site not specified Status: Acute - Plan 57-year-old female admitted secondary to metabolic encephalopathy related to UTI with complaints of abdominal pain status post new colectomy secondary to diverticulitis with abscess. Altered mental status Psychosis Acute metabolic encephalopathy Resolved likely related to infection Treat infections as listed below Sepsis, multiple intra-abdominal abscesses Status post colectomy Abdominal pain Abnormal MRCP with marked dilatation of the biliary tree with cholelithiasis and stone in the cystic duct. No evidence of CBD or Mirrizzi syndrome per GI. Per general surgery, patient not a surgical candidate at this time. GI to perform ERCP Wound care following Ct IV vanco, Zosyn and Micafungin cx with MRSA and clostridium ID following GI following Discussed with IR, proceed with drainage and there is surgical backup. Discussed with general surgery, recommended transfer to original surgeon. Would not perform surgical intervention unless emergent. [facility] has been contacted since 01/04/2018, no beds available thus far. Plan for transfer under her general surgeon Dr. Herndon, once bed available. Respiratory Continue prednisone Continue as needed duo nebs GERD Continue Pantoprazole LE edema Also complains of discomfort likely related to electrolyte abnormalities. Improved aggressive replacement of potassium and magnesium and repeat BMP and magnesium in the morning. If persistent pain consider Neurontin Continue spironolactone and Lasix DVT prophylaxis SCDs Discharge Planning: Transfer to [facility] (3) Altered mental status Qualifiers: Altered mental status type: unspecified Qualified Code(s): R41.82 - Altered mental status, unspecified (4) Psychosis Qualifiers: Psychosis type: unspecified psychosis type Qualified Code(s): F29 - Unspecified psychosis not due to a substance or known physiological condition
[2018-01-07] MEDS ORDERED: Vancomycin Inj 500 MG in Sodium Chlor 0.9% Inj 100 ML IV.SIG ONE (13:00)
--- NOTE | 2018-01-07 14:35 | P.PNGS ---
Subjective Interval history: Resting in bed; getting ready to go to ERCP today Physical Exam Vital signs: Vital Signs 01/06/18 16:00 01/06/18 19:55 01/06/18 20:00 Temperature 98.3 F 97.7 F Pulse Rate 86 97 H 97 H Respiratory Rate 17 16 18 Blood Pressure 103/66 121/84 Pulse Oximetry 99 99 99 01/07/18 00:00 01/07/18 07:46 Temperature 97.3 F L Pulse Rate 83 97 H Respiratory Rate 16 Blood Pressure 119/75 Pulse Oximetry 98 99 Intake & Output 01/06/18 01/07/18 01/07/18 18:59 06:59 18:59 Intake Total 2210 / 2210 1050 / 1050 300 / 300 Balance 2210 / 2210 1050 / 1050 300 / 300 Weight 77.9 kg Intake: IV 1250 / 1250 1050 / 1050 300 / 300 D5W/1/2 NS Inj 1,000 ML @ 100 1000 / 1000 1000 / 1000 mls/hr IV.CONT .Q10H CAITLIN Rx#: [id number] Magnesium Sulfate 1 gm/D5W 100 200 / 200 ml Premix 100 ML @ 100 mls/hr IV.SIG Q1H CAITLIN Rx#:[id number] Mycamine Inj 150 MG In NS Inj 100 / 100 100 ML @ 100 mls/hr IV.SIG Q24H CAITLIN Rx#:[id number] Zosyn 3.375 GM Premix 50 ML @ 150 / 150 50 / 50 100 / 100 100 mls/hr IV.SIG Q6H CAITLIN Rx#: [id number] Oral 960 / 960 Other: # Voids 4 Date of Last Bowel Movement 01/05/18 01/05/18 Narrative: Alert and awake Abd: colostomy in place; midline incision with packing in place Assessment and Plan - Assessment (1) Cholecystitis Code(s): K81.9 - Cholecystitis, unspecified Status: Acute Plan: 57 year old female s/p exploratory laparotomy with colostomy for perforated diverticulitis about 5 weeks ago with wound dehiscence; now with concern for cholecystitis -GI following--- ERCP today -Monitor labs -Patient is not a candidate for surgery at this time -Recommend transfer back to [facility] to original Surgeon CHING---discussed with Dr. Biggs -Continue Wound Care - Attending Attestation I CERTIFY AND ATTEST THAT I EXAMINED THE PATIENT IN THEIR ROOM. EDITOR [employer]RNA[employer] DOCUMENTED OUR VISIT AN ENTERED ORDERS IN THE EMR UNDER MY DIRECT SUPERVISION.. CARE PLAN REVIEWED WITH PATIENT AND STAFF. AMI PAN MD FACS
[2018-01-07] MEDS ORDERED: Ketamine Inj 500 MG/10 ML Vial ONE (14:45)
[2018-01-07] MEDS ORDERED: Lidocaine PF 1% Inj 5 ML Syringe INFILTRATN ONE (15:00)
--- NOTE | 2018-01-07 15:30 | GIPROC ---
[facility] [address] [facility]. [facility], [address] ERCP PROCEDURE REPORT EXAM DATE: 01/07/2018 PATIENT NAME: Lisa Camp MR #: [id number] BIRTHDATE: 1960 ATTENDING: Fátima Wright MD ORDER #: [id number] TAILOR GARMENT FITTER: Sidra Abarca Wilcox-Hassen, Alice, Faria, Juan, and Jacque Greenberg STATUS: inpatient INDICATIONS: The patient is a 57 yr old female here for an ERCP due to abnormal MRCP and abnormal liver function test PROCEDURE PERFORMED: ERCP MEDICATIONS: None and Per Anesthesia. CONSENT: The patient understands the risks and benefits of the procedure and understands that these risks include, but are not limited to: sedation, allergic reaction, infection, perforation and/or bleeding. Alternative means of evaluation and treatment include, among others: physical exam, x-rays, and/or surgical intervention. The patient elects to proceed with this endoscopic procedure. medical equipment was checked for proper function. Hand hygiene and appropriate measures for infection prevention was taken. After the risks, benefits and alternatives of the procedure were thoroughly explained, Informed was verified, confirmed and timeout was successfully executed by the treatment team. With the patient in left semi-prone position, medications were administered intravenously.The Pentax [id number] was passed from the mouth into the esophagus and further advanced from the esophagus into the stomach. From stomach scope was directed to the first portion of the duodenum. Major papilla was aligned with the duodenoscope. The scope position was confirmed fluoroscopically. Rest of the findings/therapeutics are given below. The scope was then completely withdrawn from the patient and the procedure completed. The pulse, BP, and O2 saturation were monitored and documented by the physician and the nursing staff throughout the entire procedure. The patient was cared for as planned according to standard protocol. The patient was then discharged to recovery in stable condition and with appropriate post procedure care. S/P Biliroth II operation, with narrowing of the lumewith active deep ulcer and surrounding edema. Unable to pass the scope beyond the stricture. ADVERSE EVENT: There were no complications. IMPRESSIONS: S/P Biliroth II operation, with narrowing of the lumewith active deep ulcer and surrounding edema. Unable to pass the scope beyond the stricture . Active deep duodenal ulcer at the ascending loop . RECOMMENDATIONS: Liver enzymes daily, possible repeat attempt after healing of the ulcer in 2 to 3 weeks, unless worsening of liver enzymes or became more symptomatic. REPEAT EXAM: NONE Fátima Wright MD eSigned: Fátima Wright MD 01/07/2018 3:29 PM cc:
[2018-01-07] MEDS: Potassium Chloride Inj 20 MEQ in Dextrose 5%/NaCl 0.45% Inj 1,000 ML IV.CONT SCH ×2 (16:25→21:21)
[2018-01-07] MEDS: Micafungin Inj 150 MG in Sodium Chlor 0.9% Inj 100 ML IV.SIG SCH (17:04)
--- NOTE | 2018-01-07 19:02 | P.PNID ---
Subjective Remarks: co abdominal pain, diffuse afeble WBC went up to 12K wound clx + for Clostridia spp and MRSA MRCP showed marked dilatation of the biliary tree with cholelithiasis as well as a stone in the cystic duct Antibiotics: zosyn vanco micafungin Lines: PIV with ecchymosis and infiltration noted in R A/C Allergies/Adverse Reactions: Allergies No Known Allergies Allergy (Verified 01/03/18 07:51) Objective Vital Signs 01/06/18 19:55 01/06/18 20:00 01/07/18 00:00 Temperature 97.7 F 97.3 F L Pulse Rate 97 H 97 H 83 Respiratory Rate 16 18 16 Blood Pressure 121/84 119/75 Pulse Oximetry 99 99 98 01/07/18 07:46 01/07/18 08:00 01/07/18 12:00 Temperature 98.0 F 97.4 F L Pulse Rate 97 H 101 H 93 H Respiratory Rate 18 18 Blood Pressure 143/81 H 119/76 Pulse Oximetry 99 99 98 01/07/18 15:35 Temperature 97.0 F L Pulse Rate 95 H Respiratory Rate 16 Blood Pressure 123/79 Pulse Oximetry 100 Intake & Output 01/06/18 01/07/18 01/07/18 18:59 06:59 18:59 Intake Total 2210 / 2210 1050 / 1050 1000 / 1000 Balance 2210 / 2210 1050 / 1050 1000 / 1000 Weight 77.9 kg Intake: IV 1250 / 1250 1050 / 1050 600 / 600 D5W/1/2 NS Inj 1,000 ML @ 100 1000 / 1000 1000 / 1000 mls/hr IV.CONT .Q10H CAITLIN Rx#: [id number] Magnesium Sulfate 1 gm/D5W 100 200 / 200 ml Premix 100 ML @ 100 mls/hr IV.SIG Q1H CAITLIN Rx#:[id number] Mycamine Inj 150 MG In NS Inj 100 / 100 100 / 100 100 ML @ 100 mls/hr IV.SIG Q24H CAITLIN Rx#:[id number] Zosyn 3.375 GM Premix 50 ML @ 150 / 150 50 / 50 100 / 100 100 mls/hr IV.SIG Q6H CAITLIN Rx#: [id number] KCl 20 mEq Premix Inj 20 meq In 100 / 100 100 ml @ 50 mls/hr IV.SIG ONCE ONE Rx#:[id number] Vancomycin Inj 500 MG In NS Inj 100 / 100 100 ML @ 200 mls/hr IV.SIG ONCE ONE Rx#:[id number] Oral 960 / 960 Anesthesia Amount 400 / 400 Other: # Voids 4 Date of Last Bowel Movement 01/05/18 01/05/18 01/03/18 02:25 Blood - Peripheral Aerobic Blood Culture - Preliminary No growth in 4 days 01/03/18 02:25 Blood - Peripheral Anaerobic Blood Culture - Preliminary No growth in 4 days 01/03/18 02:20 Blood - Peripheral Aerobic Blood Culture - Preliminary No growth in 4 days 01/03/18 02:20 Blood - Peripheral Anaerobic Blood Culture - Preliminary No growth in 4 days 01/03/18 02:20 Wound - Abdominal Gram Stain - Final 01/03/18 02:20 Wound - Abdominal Wound Culture - Final S. aureus MRSA Clostridium species 01/03/18 06:50 Catheterized Urine Urine Culture - Final Staphylococcus epidermidis Lab - Hematology Results 01/06/18 05:39 WBC 12.1 H RBC 3.45 L Hgb 9.6 L Hct 29.5 L MCV 85.4 MCH 27.8 MCHC 32.5 RDW 17.6 H Plt Count 195 MPV 8.0 Prelim Diff (Auto) Slide review pending Neut % (Auto) 76.7 H Lymph % (Auto) 17.5 [place] % (Auto) 5.2 Eos % (Auto) 0.5 Baso % (Auto) 0.1 Neut # (Auto) 9.2 H Lymph # (Auto) 2.1 [place] # (Auto) 0.6 Eos # (Auto) 0.1 Baso # (Auto) 0.0 WBC Differential Manual diff final Seg Neuts % (Manual) 79 H Band Neuts % (Manual) 9 H Lymphocytes % (Manual) 7 L Monocytes % (Manual) 1 Eosinophils % (Manual) 1 Metamyelocytes % (Man) 1 Myelocytes % (Man) 2 H Abs Neuts (Manual) 11.0 H Differential Comment . Platelet Estimate Normal Platelet Morphology Normal Lab - Chemistry Results 01/06/18 01/06/18 01/07/18 05:39 05:39 04:45 Sodium 140 137 Potassium 3.0 L 2.9 L* Chloride 101 96 L Carbon Dioxide 29.2 31.3 Anion Gap 10 10 BUN 11 10 Creatinine 0.77 0.75 Estimated GFR 77 L 79 L POC Glucose Random Glucose 72 L 91 Calcium 8.3 L 8.4 L Magnesium 1.3 L 1.2 L Total Bilirubin 0.8 GGT 250 H AST 23 ALT 27 Alkaline Phosphatase 266 H Total Protein 5.8 L D Albumin 2.0 L 01/07/18 12:15 Sodium Potassium Chloride Carbon Dioxide Anion Gap BUN Creatinine Estimated GFR POC Glucose 143 H Random Glucose Calcium Magnesium Total Bilirubin GGT AST ALT Alkaline Phosphatase Total Protein Albumin Imaging: ITS Impressions Chest X-Ray 01/03/18 00:00 CONCLUSION: Left basilar atelectasis. Head CT 01/03/18 05:23 CONCLUSION: 1. Negative CT Head non contrast. . Abdomen/Pelvis CT 01/03/18 05:24 Bilateral breast implants are noted. There is left lower lobe atelectasis with air bronchogram formation. Trace pericardial fluid. Cholelithiasis is noted. There is diffuse biliary ductal dilatation involving intrahepatic, and extrahepatic biliary tree, common pelvic measuring up to 2.1 cm. It tapers as it approaches the ampulla. Kidneys, adrenals, spleen, pancreas unremarkable. Urinary bladder contained a small locule of air. The uterus is unremarkable. Distal colon is decompressed, and there is a left lower quadrant. There are several hypodense masses seen within the upper abdomen including just lateral to the descending portion of the duodenum, anterior to the pancreas. For example on the right upper quadrant on image 29 a 9 x 5 cm collection is present which is contiguous with a left upper quadrant mass measuring 7.1 x 5.4 cm in size. Similar appearing hypodense mass is seen just superior to the appendix in the right mid abdomen on image 42. There is also a crescentic rim- enhancing collection in the left paracolic region with adjacent surgical clips, and this collection contains air and fluid on axial image 36 this measures 6 x 1.8 cm in AP transverse dimension. There are no signs of bowel obstruction. Diffuse atherosclerotic calcification of the aorta and iliac vessels are noted. Review of bone windows demonstrate degenerative changes of the spine. There are post surgical changes to the anterior abdominal wall with subcutaneous air along the left lateral subcutaneous tissues just above the hip, and a small focus of subcutaneous air and fluid measuring 1.9 x 1.7 cm in AP transverse dimension on image 36 at the midline. CONCLUSION: 1. Extensive postsurgical changes are seen to the anterior abdominal wall, and left sided colostomy identified. 2. Cholelithiasis, and dilatation of the biliary tree is noted. 3. Low density mass-like foci are seen throughout the mid to upper abdomen as described above which has an appearance of masses versus focal fluid collections , and the possibility of carcinomatosis should be entertained. 4. There is a crescentic rim-enhancing fluid collection containing air in the left midabdomen paracolic region which would be most characteristic of an abscess. Cholangiopancreatography MRI 01/05/18 00:00 CONCLUSION: 1. There is marked dilatation of the biliary tree with cholelithiasis as well as a stone in the cystic duct. 2. Intra-abdominal masses are seen as noted previously. Physical Exam: GENERAL: NAD obese SKIN: Warm and dry. No rash HEAD: Atraumatic. Normocephalic. EYES: Pupils equal and round. No scleral icterus. No injection or drainage. ENT: No nasal bleeding or discharge. Mucous membranes pink and moist. NECK: Trachea midline. No JVD. CARDIOVASCULAR: Regular rate and rhythm. RESPIRATORY: No accessory muscle use. Clear to auscultation. Breath sounds equal bilaterally. GASTROINTESTINAL: Abdomen soft, diffusely tender with guarding, rebound; Chao sign + moderately distended. Hepatic and splenic margins not palpable. Stoma in place with small amount of liquid stool Median laparoptomuy incision with dehiscence and necrotic and fibrinous tissue, no purulence, poor granulations MUSCULOSKELETAL: Extremities without clubbing, cyanosis, or edema. No obvious deformities. NEUROLOGICAL: Awake and alert. No n focal PSYCHIATRIC: Tearful Assessment and Plan - Plan Diverticulitis Multiple intraabdominal abscesses sp resection/colostomy in [facility] Pt reqires draiange of those abscesses surgically (most likely) or via IR with surgical support to controll the infection Biliary ducts dilatation - LFTs nl. GI cosulted MRSA and clostridia from surface wound clx previous clx with E.coli and isabel Doubt UTI , coag negative staph bacteriuria probably contamination abx associated diarrjhea New leukocytosis cont zosyn, Micafungin and IV Vanco chk stool for c.diff Pt needs to be transferred to [facility] to the care of her surgeon dw case mngr
[2018-01-07] MEDS: traZODone 100 MG Tablet PO SCH (21:16)
[2018-01-08] MEDS: Morphine Inj 4 MG/ML Vial IV.PUSH PRN ×6 (01:29→22:20)
[2018-01-08] MEDS: Piperacil/Tazo 3.375 GM Premix 50 ML IV.SIG SCH ×4 (01:29→17:48)
[2018-01-08 07:23] LABS: Baso % (Auto) 0.2 % (0.0-2.0); Eos % (Auto) 0.4 % (0.0-4.0); Hematocrit 31.6 % (35.0-46.0); Hemoglobin 10.3 gm/dL (11.6-15.3); Lymph # (Auto) 2.2 th/mm3 (1.0-4.8); Mean Corpuscular HGB Conc 32.5 % (32.0-36.0); Mean Corpuscular Volume 86.2 fL (80.0-100.0); Mean Platelet Volume 8.1 fL (7.0-11.0); Mono # (Auto) 0.6 th/mm3 (0.0-0.9); Mono % (Auto) 5.8 % (0.0-8.0); Neut % (Auto) 73.6 % (16.0-70.0); Platelet Count 203 th/mm3 (150-450); Red Blood Count 3.66 mil/mm3 (4.00-5.30); Red Cell Distribution Width 17.7 % (11.6-17.2); White Blood Count 10.8 th/mm3 (4.0-11.0)
[2018-01-08 07:42] LABS: Calcium 8.5 mg/dL (8.5-10.1); Carbon Dioxide 29.1 meq/L (21.0-32.0); Magnesium 1.8 mg/dL (1.5-2.5); Potassium 3.8 meq/L (3.5-5.1)
[2018-01-08 07:52] LABS: Vancomycin,Random 17.8 Comment
[2018-01-08 08:29] LABS: Lymphocytes 10 % (9-44); Metamyelocytes 1 % (0-1); Monocytes 2 % (0-8); Myelocytes 2 % (0-0); Platelet Estimate Normal (Normal); Platelet Morphology Normal (Normal); RBC Morphology Normal (Normal)
[2018-01-08] MEDS: predniSONE 20 MG Tablet PO SCH (09:24)
[2018-01-08] MEDS: Senna/Docusate Sodium 8.6/50 MG Tablet PO SCH ×2 (09:24→22:11)
[2018-01-08] MEDS: Magnesium Oxide 400 MG Tablet PO SCH ×2 (09:24→22:10)
[2018-01-08] MEDS: Spironolactone 25 MG Tablet PO SCH ×2 (09:24→22:11)
[2018-01-08] MEDS: Furosemide 40 MG Tablet PO SCH (09:24)
[2018-01-08] MEDS: Potassium Chloride Inj 20 MEQ in Dextrose 5%/NaCl 0.45% Inj 1,000 ML IV.CONT SCH (10:32)
[2018-01-08] MEDS: ALPRAZolam 0.25 MG Tablet PO PRN ×2 (11:08→19:15)
--- NOTE | 2018-01-08 13:52 | P.PN ---
Subjective Interval history: Follow-up abdominal abscess. Complains of abdominal pain from surgical site. Tolerating diet. Per transfer center, [facility] in [facility] will take patient on Wednesday. Discussed with case management and Jayleen Culver. Discussed with GI, unable to advance scope during ERCP secondary to swelling high risk for perforation. Physical Exam Vital signs: Vital Signs 01/07/18 15:35 01/07/18 19:55 01/07/18 20:00 Temperature 97.0 F L 97.6 F Pulse Rate 95 H 3 L 96 H Respiratory Rate 16 18 16 Blood Pressure 123/79 124/82 Pulse Oximetry 100 96 95 01/07/18 23:57 01/08/18 04:00 01/08/18 08:00 Temperature 97.7 F 97.7 F 97.1 F L Pulse Rate 92 H 94 H 88 Respiratory Rate 16 16 17 Blood Pressure 121/80 125/79 119/69 Pulse Oximetry 95 95 96 01/08/18 09:23 01/08/18 11:09 Temperature Pulse Rate 94 H Respiratory Rate 16 16 Blood Pressure Pulse Oximetry 95 Intake & Output 01/07/18 01/08/18 01/08/18 18:59 06:59 18:59 Intake Total 1000 / 1000 950 / 950 251 / 251 Balance 1000 / 1000 950 / 950 251 / 251 Weight 78 kg Intake: IV 600 / 600 950 / 950 251 / 251 KCl Inj 20 MEQ In D5W/1/2 NS 800 / 800 201 / 201 Inj 1,000 ML @ 84 mls/hr IV. CONT .Q12H2M CAITLIN Rx#:[id number] Magnesium Sulfate 1 gm/D5W 100 200 / 200 ml Premix 100 ML @ 100 mls/hr IV.SIG Q1H CAITLIN Rx#:[id number] Mycamine Inj 150 MG In NS Inj 100 / 100 100 ML @ 100 mls/hr IV.SIG Q24H CAITLIN Rx#:[id number] Zosyn 3.375 GM Premix 50 ML @ 100 / 100 150 / 150 50 / 50 100 mls/hr IV.SIG Q6H CAITLIN Rx#: [id number] KCl 20 mEq Premix Inj 20 meq In 100 / 100 100 ml @ 50 mls/hr IV.SIG ONCE ONE Rx#:[id number] Vancomycin Inj 500 MG In NS Inj 100 / 100 100 ML @ 200 mls/hr IV.SIG ONCE ONE Rx#:[id number] Anesthesia Amount 400 / 400 Other: Date of Last Bowel Movement 01/07/18 Narrative: Alert and awake Abd: colostomy in place; midline incision with packing in place. NonTender right upper quadrant Results - Labs CBC & Chem 7: 01/08/18 05:13 01/08/18 05:13 Laboratory Results - last 24 hr 01/08/18 01/08/18 01/08/18 01:45 05:13 05:13 WBC 10.8 RBC 3.66 L Hgb 10.3 L Hct 31.6 L MCV 86.2 MCH 28.0 MCHC 32.5 RDW 17.7 H Plt Count 203 MPV 8.1 Prelim Diff (Auto) Slide review pending Neut % (Auto) 73.6 H Lymph % (Auto) 20.0 [place] % (Auto) 5.8 Eos % (Auto) 0.4 Baso % (Auto) 0.2 Neut # (Auto) 8.0 H Lymph # (Auto) 2.2 [place] # (Auto) 0.6 Eos # (Auto) 0.0 Baso # (Auto) 0.0 WBC Differential Manual diff final Seg Neuts % (Manual) 81 H Band Neuts % (Manual) 4 Lymphocytes % (Manual) 10 Monocytes % (Manual) 2 Metamyelocytes % (Man) 1 Myelocytes % (Man) 2 H Abs Neuts (Manual) 9.5 H Differential Comment . Platelet Estimate Normal Platelet Morphology Normal RBC Morphology Normal Sodium 135 L Potassium 3.8 D Chloride 96 L Carbon Dioxide 29.1 Anion Gap 10 BUN 11 Creatinine 0.75 Estimated GFR 79 L Random Glucose 90 Calcium 8.[address] C. diff Tox Epid 027 Negative Random Vancomycin 17.8 C. difficile Tox (PCR) Negative Microbiology 01/03/18 02:25 Blood - Peripheral Aerobic Blood Culture - Final No growth in 5 days 01/03/18 02:25 Blood - Peripheral Anaerobic Blood Culture - Final No growth in 5 days 01/03/18 02:20 Blood - Peripheral Aerobic Blood Culture - Final No growth in 5 days 01/03/18 02:20 Blood - Peripheral Anaerobic Blood Culture - Final No growth in 5 days - Procedures Attempted ERCP Assessment and Plan - Assessment (1) Abdominal abscess Status: Acute (2) Suicidal ideation Code(s): R45.851 - Suicidal ideations Status: Acute (3) Altered mental status Code(s): R41.82 - Altered mental status, unspecified Status: Acute (4) Psychosis Code(s): F29 - Unspecified psychosis not due to a substance or known physiological condition Status: Acute (5) Acute UTI Code(s): N39.0 - Urinary tract infection, site not specified Status: Acute - Plan 57-year-old female admitted secondary to metabolic encephalopathy related to UTI with complaints of abdominal pain status post new colectomy secondary to diverticulitis with abscess. Altered mental status Psychosis Acute metabolic encephalopathy Resolved likely related to infection Treat infections as listed below Sepsis, multiple intra-abdominal abscesses Status post colectomy Abdominal pain Abnormal MRCP with marked dilatation of the biliary tree with cholelithiasis and stone in the cystic duct. No evidence of CBD or Mirrizzi syndrome per GI. Per general surgery, patient not a surgical candidate at this time. Attempted ERCP showed S/P Biliroth II operation, with narrowing of the lumen with active deep ulcer and surrounding edema. Unable to pass the scope beyond the stricture .Active deep duodenal ulcer at the ascending loop . Ct PPI and rpt ERCP at a later date Wound care following Ct IV vanco, Zosyn and Micafungin cx with MRSA and clostridium ID following GI following Discussed with IR, proceed with drainage and there is surgical backup. Discussed with general surgery, recommended transfer to original surgeon. Would not perform surgical intervention unless emergent. [facility] has been contacted since 01/04/2018, no beds available thus far. Plan for transfer under her general surgeon Dr. Herndon, once bed available. Respiratory Continue prednisone Continue as needed duo nebs GERD Continue Pantoprazole LE edema. Improved Also complains of discomfort likely related to electrolyte abnormalities. Resolved Continue spironolactone and Lasix DVT prophylaxis SCDs and heparin Discharge Planning: Transfer to [facility] (3) Altered mental status Qualifiers: Altered mental status type: unspecified Qualified Code(s): R41.82 - Altered mental status, unspecified (4) Psychosis Qualifiers: Psychosis type: unspecified psychosis type Qualified Code(s): F29 - Unspecified psychosis not due to a substance or known physiological condition
[2018-01-08] MEDS: Micafungin Inj 150 MG in Sodium Chlor 0.9% Inj 100 ML IV.SIG SCH (16:56)
[2018-01-08] MEDS: Heparin - SQ 10,000 UNITS/ML Vial SQ SCH (22:11)
[2018-01-08] MEDS: traZODone 100 MG Tablet PO SCH (22:11)
[2018-01-09] MEDS: Piperacil/Tazo 3.375 GM Premix 50 ML IV.SIG SCH ×4 (01:27→18:15)
[2018-01-09] MEDS: Potassium Chloride Inj 20 MEQ in Dextrose 5%/NaCl 0.45% Inj 1,000 ML IV.CONT SCH ×3 (01:27→23:23)
[2018-01-09] MEDS: Morphine Inj 4 MG/ML Vial IV.PUSH PRN ×3 (02:31→10:45)
[2018-01-09] MEDS: ALPRAZolam 0.25 MG Tablet PO PRN ×3 (05:18→21:15)
--- NOTE | 2018-01-09 08:41 | P.PN ---
Subjective Interval history: Follow-up abdominal abscesses. Continues to have pain over abdominal wound on morphine sulfate. Physical Exam Vital signs: Vital Signs 01/08/18 09:23 01/08/18 11:09 01/08/18 12:00 Temperature 97.8 F Pulse Rate 94 H 99 H Respiratory Rate 16 16 18 Blood Pressure 99/73 L Pulse Oximetry 95 98 01/08/18 16:00 01/08/18 17:50 01/08/18 20:00 Temperature 97.1 F L 97.6 F Pulse Rate 93 H 91 H Respiratory Rate 18 16 18 Blood Pressure 113/89 122/72 Pulse Oximetry 97 97 01/08/18 22:26 01/09/18 00:00 01/09/18 08:00 Temperature 97.1 F L 97.3 F L Pulse Rate 98 H 86 86 Respiratory Rate 16 18 18 Blood Pressure 122/72 117/79 Pulse Oximetry 99 96 Intake & Output 01/08/18 01/09/18 01/09/18 18:59 06:59 18:59 Intake Total 1601 / 1601 1060 / 1060 Output Total 1100 / 1100 1800 / 1800 Balance 501 / 501 -740 / -740 Weight 75.3 kg Intake: IV 401 / 401 1060 / 1060 KCl Inj 20 MEQ In D5W/1/2 NS 201 / 201 1010 / 1010 Inj 1,000 ML @ 84 mls/hr IV. CONT .Q12H2M CAITLIN Rx#:[id number] Mycamine Inj 150 MG In NS Inj 100 / 100 100 ML @ 100 mls/hr IV.SIG Q24H CAITLIN Rx#:[id number] Zosyn 3.375 GM Premix 50 ML @ 100 / 100 50 / 50 100 mls/hr IV.SIG Q6H CAITLIN Rx#: [id number] Oral 1200 / 1200 Output: Urine 1000 / 1000 1800 / 1800 Stool Amount (Stoma) 100 / 100 Left Lower Abdomen 100 / 100 Narrative: Alert and awake Abd: colostomy in place; midline incision with packing in place. NonTender right upper quadrant Results - Labs CBC & Chem 7: 01/08/18 05:13 01/08/18 05:13 Microbiology 01/03/18 02:25 Blood - Peripheral Aerobic Blood Culture - Final No growth in 5 days 01/03/18 02:25 Blood - Peripheral Anaerobic Blood Culture - Final No growth in 5 days 01/03/18 02:20 Blood - Peripheral Aerobic Blood Culture - Final No growth in 5 days 01/03/18 02:20 Blood - Peripheral Anaerobic Blood Culture - Final No growth in 5 days - Procedures Attempted ERCP Assessment and Plan - Assessment (1) Abdominal abscess Status: Acute (2) Suicidal ideation Code(s): R45.851 - Suicidal ideations Status: Acute (3) Altered mental status Code(s): R41.82 - Altered mental status, unspecified Status: Acute (4) Psychosis Code(s): F29 - Unspecified psychosis not due to a substance or known physiological condition Status: Acute (5) Acute UTI Code(s): N39.0 - Urinary tract infection, site not specified Status: Acute - Plan 57-year-old female admitted secondary to metabolic encephalopathy related to UTI with complaints of abdominal pain status post new colectomy secondary to diverticulitis with abscess. Altered mental status Psychosis Acute metabolic encephalopathy Resolved likely related to infection Treat infections as listed below Sepsis, multiple intra-abdominal abscesses Status post colectomy Abdominal pain Abnormal MRCP with marked dilatation of the biliary tree with cholelithiasis and stone in the cystic duct. No evidence of CBD or Mirrizzi syndrome per GI. Per general surgery, patient not a surgical candidate at this time. Attempted ERCP showed S/P Biliroth II operation, with narrowing of the lumen with active deep ulcer and surrounding edema. Unable to pass the scope beyond the stricture .Active deep duodenal ulcer at the ascending loop . Ct PPI and rpt ERCP at a later date Wound care following Ct IV vanco, Zosyn and Micafungin cx with MRSA and clostridium ID following GI following Discussed with IR, proceed with drainage with surgical backup. Discussed with general surgery, recommended transfer to original surgeon. Would not perform surgical intervention unless emergent. At this time, sepsis has resolved and patient is hemodynamically stable. [facility] has been contacted since 01/04/2018, no beds available thus far. Plan for transfer under her general surgeon Dr. Herndon. Covering MD Dr Tillman has accepted pt 01/07 Pain management with IV morphine. Will add Lortab Respiratory Continue prednisone Continue as needed duo nebs GERD Continue Pantoprazole LE edema. Improved Also complains of discomfort likely related to electrolyte abnormalities. Resolved Continue spironolactone and Lasix DVT prophylaxis SCDs and heparin Discharge Planning: Transfer to [facility] when arranged (3) Altered mental status Qualifiers: Altered mental status type: unspecified Qualified Code(s): R41.82 - Altered mental status, unspecified (4) Psychosis Qualifiers: Psychosis type: unspecified psychosis type Qualified Code(s): F29 - Unspecified psychosis not due to a substance or known physiological condition
[2018-01-09] MEDS: Senna/Docusate Sodium 8.6/50 MG Tablet PO SCH ×2 (09:12→21:15)
[2018-01-09] MEDS: Magnesium Oxide 400 MG Tablet PO SCH ×2 (09:12→21:14)
[2018-01-09] MEDS: predniSONE 20 MG Tablet PO SCH (09:13)
[2018-01-09] MEDS: Spironolactone 25 MG Tablet PO SCH ×2 (09:13→21:15)
[2018-01-09] MEDS: Heparin - SQ 10,000 UNITS/ML Vial SQ SCH ×2 (09:13→21:15)
[2018-01-09] MEDS: Furosemide 40 MG Tablet PO SCH (09:13)
[2018-01-09] MEDS: Vancomycin Inj 1,500 MG in Sodium Chlor 0.9% Inj 500 ML IV.SIG SCH (09:15)
--- NOTE | 2018-01-09 12:39 | P.PN ---
Physical Exam Vital signs: Vital Signs 01/08/18 16:00 01/08/18 17:50 01/08/18 20:00 Temperature 97.1 F L 97.6 F Pulse Rate 93 H 91 H Respiratory Rate 18 16 18 Blood Pressure 113/89 122/72 Pulse Oximetry 97 97 01/08/18 22:26 01/09/18 00:00 01/09/18 08:00 Temperature 97.1 F L 97.3 F L Pulse Rate 98 H 86 86 Respiratory Rate 16 18 18 Blood Pressure 122/72 117/79 Pulse Oximetry 99 96 01/09/18 08:45 01/09/18 12:00 Temperature 98.0 F Pulse Rate 92 H 93 H Respiratory Rate 16 17 Blood Pressure 113/75 Pulse Oximetry 96 Intake & Output 01/08/18 01/09/18 01/09/18 18:59 06:59 18:59 Intake Total 1601 / 1601 1060 / 1060 Output Total 1100 / 1100 1800 / 1800 Balance 501 / 501 -740 / -740 Weight 75.3 kg Intake: IV 401 / 401 1060 / 1060 KCl Inj 20 MEQ In D5W/1/2 NS 201 / 201 1010 / 1010 Inj 1,000 ML @ 84 mls/hr IV. CONT .Q12H2M [facility] Rx#:[id number] Mycamine Inj 150 MG In NS Inj 100 / 100 100 ML @ 100 mls/hr IV.SIG Q24H [facility] Rx#:[id number] Zosyn 3.375 GM Premix 50 ML @ 100 / 100 50 / 50 100 mls/hr IV.SIG Q6H [facility] Rx#: [id number] Oral 1200 / 1200 Output: Urine 1000 / 1000 1800 / 1800 Stool Amount (Stoma) 100 / 100 Left Lower Abdomen 100 / 100 Results - Labs CBC & Chem 7: 01/08/18 05:13 01/08/18 05:13 Microbiology 01/03/18 02:25 Blood - Peripheral Aerobic Blood Culture - Final No growth in 5 days 01/03/18 02:25 Blood - Peripheral Anaerobic Blood Culture - Final No growth in 5 days 01/03/18 02:20 Blood - Peripheral Aerobic Blood Culture - Final No growth in 5 days 01/03/18 02:20 Blood - Peripheral Anaerobic Blood Culture - Final No growth in 5 days - Procedures Attempted ERCP Assessment and Plan - Assessment (1) Abdominal abscess Status: Acute (2) Suicidal ideation Code(s): R45.851 - Suicidal ideations Status: Acute (3) Altered mental status Code(s): R41.82 - Altered mental status, unspecified Status: Acute (4) Psychosis Code(s): F29 - Unspecified psychosis not due to a substance or known physiological condition Status: Acute (5) Acute UTI Code(s): N39.0 - Urinary tract infection, site not specified Status: Acute - Plan 57-year-old female admitted secondary to metabolic encephalopathy related to UTI with complaints of abdominal pain status post new colectomy secondary to diverticulitis with abscess. Altered mental status Psychosis Acute metabolic encephalopathy Resolved likely related to infection Treat infections as listed below Sepsis, multiple intra-abdominal abscesses Status post colectomy Abdominal pain Abnormal MRCP with marked dilatation of the biliary tree with cholelithiasis and stone in the cystic duct. No evidence of CBD or Mirrizzi syndrome per GI. Per general surgery, patient not a surgical candidate at this time. Attempted ERCP showed S/P Biliroth II operation, with narrowing of the lumen with active deep ulcer and surrounding edema. Unable to pass the scope beyond the stricture .Active deep duodenal ulcer at the ascending loop . Ct PPI and rpt ERCP at a later date Wound care following Ct IV vanco, Zosyn and Micafungin cx with MRSA and clostridium ID following GI following Discussed with IR, proceed with drainage with surgical backup. Discussed with general surgery, recommended transfer to original surgeon. Would not perform surgical intervention unless emergent. [facility] has been contacted since 01/04/2018, no beds available thus far. Plan for transfer under her general surgeon Dr. Herndon. Covering MD Dr Tillman has accepted pt 01/07 Respiratory Continue prednisone Continue as needed duo nebs GERD Continue Pantoprazole LE edema. Improved Also complains of discomfort likely related to electrolyte abnormalities. Resolved Continue spironolactone and Lasix DVT prophylaxis SCDs and heparin Discharge Planning: Transfer to [facility] (3) Altered mental status Qualifiers: Altered mental status type: unspecified Qualified Code(s): R41.82 - Altered mental status, unspecified (4) Psychosis Qualifiers: Psychosis type: unspecified psychosis type Qualified Code(s): F29 - Unspecified psychosis not due to a substance or known physiological condition
[2018-01-09] MEDS ORDERED: Naloxone Inj 0.4 MG/ML Vial IV.PUSH PRN (12:40)
[2018-01-09] MEDS ORDERED: Acetaminophen 325 MG Tablet PO PRN (12:40)
[2018-01-09] MEDS: Micafungin Inj 150 MG in Sodium Chlor 0.9% Inj 100 ML IV.SIG SCH (17:25)
[2018-01-09] MEDS: traZODone 100 MG Tablet PO SCH (21:14)
[2018-01-09] MEDS: Sodium Hypochlorite 0.125% Top Soln 500 ML Bottle TOPICAL SCH (23:23)
[2018-01-10] MEDS: Piperacil/Tazo 3.375 GM Premix 50 ML IV.SIG SCH ×3 (01:37→13:17)
[2018-01-10] MEDS: Vancomycin Inj 1,500 MG in Sodium Chlor 0.9% Inj 500 ML IV.SIG SCH (05:56)
[2018-01-10] MEDS: ALPRAZolam 0.25 MG Tablet PO PRN ×2 (06:32→14:31)
[2018-01-10 06:49] LABS: Baso % (Auto) 0.4 % (0.0-2.0); Eos % (Auto) 0.2 % (0.0-4.0); Hematocrit 29.3 % (35.0-46.0); Hemoglobin 9.6 gm/dL (11.6-15.3); Lymph # (Auto) 1.9 th/mm3 (1.0-4.8); Lymph % (Auto) 21.3 % (9.0-44.0); Mean Corpuscular HGB Conc 32.7 % (32.0-36.0); Mean Corpuscular Hemoglobin 27.9 pg (27.0-34.0); Mean Corpuscular Volume 85.4 fL (80.0-100.0); Mono # (Auto) 0.5 th/mm3 (0.0-0.9); Mono % (Auto) 5.4 % (0.0-8.0); Neut # (Auto) 6.6 th/mm3 (1.8-7.7); Neut % (Auto) 72.7 % (16.0-70.0); Platelet Count 235 th/mm3 (150-450); Red Blood Count 3.43 mil/mm3 (4.00-5.30); Red Cell Distribution Width 17.6 % (11.6-17.2); White Blood Count 9.1 th/mm3 (4.0-11.0)
[2018-01-10 07:12] LABS: Calcium 8.3 mg/dL (8.5-10.1); Carbon Dioxide 32.5 meq/L (21.0-32.0); Magnesium 1.8 mg/dL (1.5-2.5)
[2018-01-10 08:01] LABS: Lymphocytes 10 % (9-44); Metamyelocytes 3 % (0-1); Monocytes 4 % (0-8); Plasma Cells 2 % (0-0)
[2018-01-10 08:02] LABS: Platelet Estimate Normal (Normal); Platelet Morphology Normal (Normal)
[2018-01-10] MEDS: Spironolactone 25 MG Tablet PO SCH (08:41)
[2018-01-10] MEDS: predniSONE 20 MG Tablet PO SCH (08:41)
[2018-01-10] MEDS: Furosemide 40 MG Tablet PO SCH (08:41)
[2018-01-10] MEDS: Heparin - SQ 10,000 UNITS/ML Vial SQ SCH (08:41)
[2018-01-10] MEDS: Magnesium Oxide 400 MG Tablet PO SCH (08:41)
[2018-01-10] MEDS: Senna/Docusate Sodium 8.6/50 MG Tablet PO SCH (08:41)
[2018-01-10] MEDS: Sodium Hypochlorite 0.125% Top Soln 500 ML Bottle TOPICAL SCH (08:45)
[2018-01-10 11:25] LABS: Albumin 1.7 g/dL (3.4-5.0); Anion Gap 12 meq/L (5-15); Aspartate Aminotransferase 18 U/L (15-37); Blood Urea Nitrogen 13 mg/dL (7-18); Calcium 8.4 mg/dL (8.5-10.1); Carbon Dioxide 27.8 meq/L (21.0-32.0); Chloride 98 meq/L (98-107); Glomerular Filtration Rate 63 mL/min (>89); Glucose,Random 73 mg/dL (74-106); Potassium 3.7 meq/L (3.5-5.1); Sodium 138 meq/L (136-145)
[2018-01-10 11:27] LABS: Alanine Aminotransferase 17 U/L (10-53)
[2018-01-10 11:29] LABS: Alkaline Phosphatase 292 U/L (45-117); Total Protein 5.7 g/dL (6.4-8.2)
--- NOTE | 2018-01-10 12:15 | P.DS ---
Date of admission: 01/03/18 12:48 Primary care physician: No Primary Care Physician Brief History from admission: Mrs. Camp is a 57 yo F with PMH of recent laparotomy and colostomy placement by Dr. Herndon (due to complications of diverticulitis at within the past month) , recent abdominal infection, anxiety/depression, GERD, HTN who presented to [facility] rehabilitation facility due to altered mental status and psychosis. Per ED documentation, patient was doing well 01/01 but was found today putting stool from ostomy inside wound stating she wanted to . At ED, patient reported desire to use rifle to kill people in hospital. [facility] records reviewed- admitted to [facility] 12/31 from . Had diverticulitis; due to complications had colostomy and laparotomy. Patient had plans for abdominal dressing changes and follow-up with Dr. Herndon in 4 weeks. Patient also had been seeing Dr. Cabrera (ID) and Dr. Hall (Pulmonology) and had f/u appointments planned. Interval: In ED, vital signs stable. Patient found to have WBC 14K, lactic acid 1.9. CT A/P suggestive of multiple masses/fluid and suggestion of abscess. UA suggestive of UTI. Patient also found to have glucose 60 and abnormal LFT's. Abdominal incision irrigated by nursing staff and re-dressed. Decision made to admit patient to medical service and consult psychiatry. At time of interview, patient oriented to year and that she is in the hospital. She does not remember putting stool from ostomy into abdominal wound. She reports history of depression but denies prior suicidal ideation. patient reports doing well at [facility] for ~2 days prior to worsening. She is not sure why she is here. Patient reports diffuse pain all over. She denies chest pain, shortness of breath, extremity numbness/tinging, headaches, vision changes. She has not been able to walk since diverticulitis hospitalization. She reports some lung disease and that she used to smoke 1PPD until last hospitalization. Some records obtained from hospitalization in December: CT 12/07- large diverticular abscess 11.2 x10.6x10.1. Too thick to aspirate. Drain in abscess in position. Common bile duct dilation; unchanged from prior. Could be evaluated by MRCP/ERCP 12/13- Laparoscopic L colectomy performed Was on Rocephin and Flagyl per Dr. Cabrera while hospitalized; also treated for candidemia while hospitalized. 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 Altered mental status Psychosis Acute metabolic encephalopathy Resolved likely related to infection Treat infections as listed below Sepsis, multiple intra-abdominal abscesses Status post colectomy Abdominal pain Abnormal MRCP with marked dilatation of the biliary tree with cholelithiasis and stone in the cystic duct. No evidence of CBD or Mirrizzi syndrome per GI. Per general surgery, patient not a surgical candidate at this time. Attempted ERCP showed S/P Biliroth II operation, with narrowing of the lumen with active deep ulcer and surrounding edema. Unable to pass the scope beyond the stricture .Active deep duodenal ulcer at the ascending loop . Ct PPI and rpt ERCP at a later date Wound care following Ct IV vanco, Zosyn and Micafungin cx with MRSA and clostridium ID following GI following Discussed with IR, proceed with drainage with surgical backup. Discussed with general surgery, recommended transfer to original surgeon. Would not perform surgical intervention unless emergent. At this time, sepsis has resolved and patient is hemodynamically stable. [facility] has been contacted since 01/04/2018, no beds available thus far. Plan for transfer under her general surgeon Dr. Herndon. Covering MD Dr Tillman has accepted pt 01/07. Also accepted by [facility] hospitalist Dr. Soria discuss patient's case today Pain management with Lortab and IV morphine Respiratory Continue prednisone Continue as needed duo nebs GERD Continue Pantoprazole LE edema. Improved Also complains of discomfort likely related to electrolyte abnormalities. Resolved Continue spironolactone and Lasix DVT prophylaxis SCDs and heparin - Time Spent with Patient Total time spent providing and/or coordinating discharge services: Greater than 30 minutes - Quality: VTE Deep Vein Thrombosis/Pulmonary Embolism Present on Admission: No Exam Vital signs: Vital Signs 01/09/18 13:00 01/09/18 13:07 01/09/18 16:00 Temperature 97.3 F L Pulse Rate 78 Respiratory Rate 17 16 18 Blood Pressure 108/68 Pulse Oximetry 97 01/09/18 17:25 01/09/18 20:00 01/09/18 20:12 Temperature 97.9 F Pulse Rate 89 78 Respiratory Rate 16 18 16 Blood Pressure 99/54 L Pulse Oximetry 98 01/10/18 00:00 01/10/18 07:34 01/10/18 08:00 Temperature 97.2 F L 97.3 F L Pulse Rate 83 77 76 Respiratory Rate 18 16 16 Blood Pressure 111/64 100/66 Pulse Oximetry 97 98 Intake & Output 01/09/18 01/10/18 01/10/18 18:59 06:59 18:59 Intake Total 2014 100 / 100 515 / 515 Output Total 1600 / 1600 700 / 700 Balance 415 / 415 -600 / -600 515 / 515 Weight 76.1 kg Intake: IV 715 / 715 100 / 100 515 / 515 Mycamine Inj 150 MG In NS Inj 100 / 100 100 ML @ 100 mls/hr IV.SIG Q24H [facility] Rx#:[id number] Zosyn 3.375 GM Premix 50 ML @ 100 / 100 100 / 100 100 mls/hr IV.SIG Q6H [facility] Rx#: [id number] Vancomycin Inj 1,500 MG In NS 515 / 515 Inj 500 ML @ 250 mls/hr IV.SIG Q18H [facility] Rx#:[id number] Oral 1300 / 1300 Output: Urine 1600 / 1600 700 / 700 Other: Date of Last Bowel Movement 01/09/18 # Bowel Movements 0 1 Narrative: Alert and awake Abd: colostomy in place; midline incision with packing in place. NonTender right upper quadrant Results Procedures completed during hospitalization: Attempted ERCP Labs on day of discharge: Labs from last 24 hours 01/10/18 01/10/18 01/10/18 09:49 05:52 05:52 WBC RBC Hgb Hct MCV MCH MCHC RDW Plt Count MPV Prelim Diff (Auto) Neut % (Auto) Lymph % (Auto) [place] % (Auto) Eos % (Auto) Baso % (Auto) Neut # (Auto) Lymph # (Auto) [place] # (Auto) Eos # (Auto) Baso # (Auto) WBC Differential Seg Neuts % (Manual) Band Neuts % (Manual) Lymphocytes % (Manual) Monocytes % (Manual) Metamyelocytes % (Man) Plasma Cell % (Manual) Abs Neuts (Manual) Differential Comment Platelet Estimate Platelet Morphology Sodium 138 137 Potassium 3.7 4.0 Chloride 98 97 L Carbon Dioxide 27.8 32.5 H Anion Gap 12 8 BUN 13 13 Creatinine 0.91 0.91 Estimated GFR 63 L 63 L Random Glucose 73 L 72 L Calcium 8.4 L 8.3 L Magnesium 1.8 Total Bilirubin 0.6 AST 18 ALT 17 Alkaline Phosphatase 292 H Total Protein 5.7 L Albumin 1.7 L 1.7 L 01/10/18 05:52 WBC 9.1 RBC 3.43 L Hgb 9.6 L Hct 29.3 L MCV 85.4 MCH 27.9 MCHC 32.7 RDW 17.6 H Plt Count 235 MPV 8.0 Prelim Diff (Auto) Slide review pending Neut % (Auto) 72.7 H Lymph % (Auto) 21.3 [place] % (Auto) 5.4 Eos % (Auto) 0.2 Baso % (Auto) 0.4 Neut # (Auto) 6.6 Lymph # (Auto) 1.9 [place] # (Auto) 0.5 Eos # (Auto) 0.0 Baso # (Auto) 0.0 WBC Differential Manual diff final Seg Neuts % (Manual) 74 H Band Neuts % (Manual) 7 H Lymphocytes % (Manual) 10 Monocytes % (Manual) 4 Metamyelocytes % (Man) 3 H Plasma Cell % (Manual) 2 H Abs Neuts (Manual) 7.6 Differential Comment . Platelet Estimate Normal Platelet Morphology Normal Sodium Potassium Chloride Carbon Dioxide Anion Gap BUN Creatinine Estimated GFR Random Glucose Calcium Magnesium Total Bilirubin AST ALT Alkaline Phosphatase Total Protein Albumin - Impressions ITS Impressions Chest X-Ray 01/03/18 00:00 CONCLUSION: Left basilar atelectasis. Head CT 01/03/18 05:23 CONCLUSION: 1. Negative CT Head non contrast. . Abdomen/Pelvis CT 01/03/18 05:24 Bilateral breast implants are noted. There is left lower lobe atelectasis with air bronchogram formation. Trace pericardial fluid. Cholelithiasis is noted. There is diffuse biliary ductal dilatation involving intrahepatic, and extrahepatic biliary tree, common pelvic measuring up to 2.1 cm. It tapers as it approaches the ampulla. Kidneys, adrenals, spleen, pancreas unremarkable. Urinary bladder contained a small locule of air. The uterus is unremarkable. Distal colon is decompressed, and there is a left lower quadrant. There are several hypodense masses seen within the upper abdomen including just lateral to the descending portion of the duodenum, anterior to the pancreas. For example on the right upper quadrant on image 29 a 9 x 5 cm collection is present which is contiguous with a left upper quadrant mass measuring 7.1 x 5.4 cm in size. Similar appearing hypodense mass is seen just superior to the appendix in the right mid abdomen on image 42. There is also a crescentic rim- enhancing collection in the left paracolic region with adjacent surgical clips, and this collection contains air and fluid on axial image 36 this measures 6 x 1.8 cm in AP transverse dimension. There are no signs of bowel obstruction. Diffuse atherosclerotic calcification of the aorta and iliac vessels are noted. Review of bone windows demonstrate degenerative changes of the spine. There are post surgical changes to the anterior abdominal wall with subcutaneous air along the left lateral subcutaneous tissues just above the hip, and a small focus of subcutaneous air and fluid measuring 1.9 x 1.7 cm in AP transverse dimension on image 36 at the midline. CONCLUSION: 1. Extensive postsurgical changes are seen to the anterior abdominal wall, and left sided colostomy identified. 2. Cholelithiasis, and dilatation of the biliary tree is noted. 3. Low density mass-like foci are seen throughout the mid to upper abdomen as described above which has an appearance of masses versus focal fluid collections , and the possibility of carcinomatosis should be entertained. 4. There is a crescentic rim-enhancing fluid collection containing air in the left midabdomen paracolic region which would be most characteristic of an abscess. Cholangiopancreatography MRI 01/05/18 00:00 CONCLUSION: 1. There is marked dilatation of the biliary tree with cholelithiasis as well as a stone in the cystic duct. 2. Intra-abdominal masses are seen as noted previously. Discharge Plan - Discharge Disposition Patient Disposition: Disch To Another Hospital - Discharge Condition Condition: Fair - Discharge Order Discharge Orders: Discharge Order (Routine); Ordered 01/06/18 Ordered By: Foreign Biggs - Discharge Details Anticipated Discharge Date: 01/04/18 Discharge Comment: Discharge to [facility], when bed avaliable. - Physicians Team Primary Care Provider: Primary Care Lin Pedraza Attending Provider: Foreign Biggs Other Providers: Rom Ingram MD ; Fátima Wright MD ; Leti Washington MD ; Mariano Gonzalez MD
[2018-01-11] MEDS ORDERED: Pharmacy Ordered Lab Info OTHER ONE (15:45)
== END 2018-01-10 15:30 | disposition short-term general hospital (02) ==
LOC: NEPC 22:21 → NEDA 01-03 12:48 → N07 01-03 13:48
PROVIDERS: ADMIT Internal Medicine; ATTEND Internal Medicine